=== PATIENT | female | born 1980 | race Caucasian/White ===

== ENCOUNTER 2018-12-01 07:41 | Emergency (ER) | payer BC, OTHER ==
--- OUTSIDE RECORDS SUMMARY | 2018-12-01 07:54 | XMS REPORT ---
:1980 Author Organization [facility] Address [address] [place] [address] Dr. Mendez [address] [place] [id number] Care Team Providers Name Role Phone Unavailable Unavailable Unavailable Problems This patient has no known problems. Allergies, Adverse Reactions, Alerts This patient has no known allergies or adverse reactions. Medications This patient has no known medications.
[2018-12-01] MEDS ORDERED: HYDROCODONE/APAP 10/325 TAB ONE (08:09)
--- NOTE | 2018-12-01 09:30 | RAD REPORT ---
EXAM DESCRIPTION: RAD - Wrist Right 3 View - 12/01/2018 8:31 am CLINICAL HISTORY: Slip and fall, wrist pain, decreased range of motion COMPARISON: None. FINDINGS: No fracture is identified. There is no dislocation or periosteal reaction noted. Epiphyses and growth plates are Normal in appearance. No foreign body or other soft tissue abnormality. IMPRESSION: Negative right wrist examination. Repeat imaging in 7 days could be performed if the pat ient has continued symptoms suspicious for fracture.
[2018-12-01] MEDS ORDERED: ONDANSETRON 4 MG (ODT) TAB ONE (09:35)
[2018-12-01] MEDS ORDERED: MORPHINE 4 MG/ML SYR ONE (09:35)
--- NOTE | 2018-12-01 09:37 | EDPHYS ---
Physician Documentation [facility] Name: Marcie Shell Age: 38 yrs Sex: Female : 1980 Arrival Date: 12/01/2018 Time: 07:45 Bed 20 Private MD: Bryon Childs ED Physician Geronimo Carver HPI: 12/01 08:13 This 38 yrs old Female presents to ER via Ambulatory with complaints of Fall kdr Injury, Wrist Injury. 08:13 The patient or guardian reports decreased range of motion, injury, pain. The complaints kdr affect the right wrist diffusely. Context: The problem was sustained at home, resulted from a fall, while walking, tripped over her dog and landed on outstretched right hand. Onset: The symptoms/episode began/occurred acutely, just prior to arrival. Modifying factors: The symptoms are alleviated by holding still, the symptoms are aggravated by movement. Associated signs and symptoms: The patient has no apparent associated signs or symptoms. The patient has not experienced similar symptoms in the past. The patient has not recently seen a physician. Historical: - Allergies: 07:53 No Known Allergies; em - PMHx: 07:53 None; em - PSHx: 07:53 Appendectomy; em - Immunization history:: Adult Immunizations up to date. - Social history:: Smoking status: Patient/guardian denies using tobacco. - Ebola Screening: : Patient negative for fever greater than or equal to 101.5 degrees Fahrenheit, and additional compatible Ebola Virus Disease symptoms Patient denies exposure to infectious person Patient denies travel to an Ebola-affected area in the 21 days before illness onset No symptoms or risks identified at this time. ROS: 08:13 Constitutional: Negative for fever, chills, and weight loss, Eyes: Negative for injury, kdr pain, redness, and discharge, ENT: Negative for injury, pain, and discharge, Neck: Negative for injury, pain, and swelling, Cardiovascular: Negative for chest pain, palpitations, and edema, Respiratory: Negative for shortness of breath, cough, wheezing, and pleuritic chest pain, Abdomen/GI: Negative for abdominal pain, nausea, vomiting, diarrhea, and constipation. 08:13 MS/extremity: Positive for injury or acute deformity, decreased range of motion, pain, tenderness, of the right wrist. Exam: 08:13 Hand exam: is negative for swelling, Exam is positive for decreased range of motion, kdr injury, pain, tenderness. 08:13 Constitutional: This is a well developed, well nourished patient who is awake, alert, and in no acute distress. Head/Face: Normocephalic, atraumatic. Vital Signs: 07:53 BP 136 / 80; Pulse 107; Resp 22; Pulse Ox 100% on R/A; Weight 77.56 kg; Height 5 ft. 3 em in. (160.02 cm); Pain 10/10; 09:25 BP 115 / 69; Pulse 81; Resp 18; Pulse Ox 97% on R/A; Pain 7/10; em 07:53 Body Mass Index 30.29 (77.56 kg, 160.02 cm) em MDM: 09:36 Patient medically screened. kdr 09:39 Data reviewed: vital signs, nurses notes, radiologic studies. Counseling: I had a kdr detailed discussion with the patient and/or guardian regarding: the historical points, exam findings, and any diagnostic results supporting the discharge/admit diagnosis, radiology results, the need for outpatient follow up. 12 08:06 Order name: Wrist Right 3 View XRAY; Complete Time: 09:33 kdr Administered Medications: 08:07 Drug: [place] 10 mg-325 mg 1 tabs Route: PO; em 08:55 Follow up: Response: No adverse reaction; Pain is decreased em 09:28 Drug: morphine 4 mg Route: IM; Site: left deltoid; em 09:53 Follow up: Response: No adverse reaction em 09:29 Drug: Zofran 4 mg Route: PO; em 09:53 Follow up: Response: No adverse reaction em Disposition: 12 09:36 Discharged to Home. Impression: Other specified sprain of right wrist. - Condition is Stable. - Discharge Instructions: Wrist Splint, Iopw-sp-Eauu, Wrist Pain, Hyep-hb-Ibej, Wrist Sprain. - Prescriptions for Tylenol- Codeine #3 300-30 mg Oral Tablet - take 2 tablets by ORAL route every 6 hours As needed; 15 tablet. - Medication Reconciliation Form, Thank You Letter, Prescription Opioid Use form. - Follow up: Private Physician; When: 2 - 3 days; Reason: If symptoms return, Further diagnostic work-up, Recheck today's complaints, Continuance of care, Re-evaluation by your physician. - Problem is new. - Symptoms have improved. Signatures: Dispatcher [employer] Geronimo Villa MD MD kdr Munoz, Edgar, CERTIFIED ENERGY MANAGER CERTIFIED ENERGY MANAGER em Corrections: (The following items were deleted from the chart) 09:54 09:36 12/01/2018 09:36 Discharged to Home. Impression: Other specified sprain of right em wrist. Condition is Stable. Forms are Medication Reconciliation Form, Thank You Letter, Antibiotic Education, Prescription Opioid Use. Follow up: Private Physician; When: 2 - 3 days; Reason: If symptoms return, Further diagnostic work-up, Recheck today's complaints, Continuance of care, Re-evaluation by your physician. Problem is new. Symptoms have improved. kdr
--- NOTE | 2018-12-01 09:37 | ER ---
Nurse's Notes [facility] Name: Marcie Shell Age: 38 yrs Sex: Female : 1980 Arrival Date: 12/01/2018 Time: 07:45 Bed 20 Private MD: Bryon Childs Diagnosis: Other specified sprain of right wrist Presentation: 12/01 07:51 Presenting complaint: Patient states: tripped on dog this morning about 45 min. ago, em landed one right hand, complains of pain in right wrist, no swelling or deformity noted, limited ROM on right wrist. Transition of care: patient was not received from another setting of care. Onset of symptoms was December 01, 2018. Risk Assessment: Do you want to hurt yourself or someone else? Patient reports no desire to harm self or others. Initial Sepsis Screen: Does the patient meet any 2 criteria? HR > 90 bpm. No. Patient's initial sepsis screen is negative. Does the patient have a suspected source of infection? No. Patient's initial sepsis screen is negative. Care prior to arrival: None. 07:51 Method Of Arrival: Ambulatory em 07:57 Acuity: CELY 4 iw Triage Assessment: 07:53 General: Appears in no apparent distress. uncomfortable, Behavior is calm, cooperative. em Pain: Complains of pain in dorsal aspect of right wrist. Historical: - Allergies: 07:53 No Known Allergies; em - PMHx: 07:53 None; em - PSHx: 07:53 Appendectomy; em - Immunization history:: Adult Immunizations up to date. - Social history:: Smoking status: Patient/guardian denies using tobacco. - Ebola Screening: : Patient negative for fever greater than or equal to 101.5 degrees Fahrenheit, and additional compatible Ebola Virus Disease symptoms Patient denies exposure to infectious person Patient denies travel to an Ebola-affected area in the 21 days before illness onset No symptoms or risks identified at this time. Screenin:55 Abuse screen: Denies threats or abuse. Nutritional screening: No deficits noted. em Tuberculosis screening: No symptoms or risk factors identified. Fall Risk None identified. Assessment: 07:55 General: Appears in no apparent distress. uncomfortable, Behavior is calm, cooperative. em Pain: Complains of pain in dorsal aspect of right wrist Pain currently is 10 out of 10 on a pain scale. Pain began 1 hour ago. Neuro: Level of Consciousness is awake, alert, obeys commands, Oriented to person, place, time, situation. Cardiovascular: Capillary refill < 3 seconds Patient's skin is warm and dry. Respiratory: Airway is patent Respiratory effort is even, unlabored, Respiratory pattern is regular, symmetrical. Derm: Skin is intact, is healthy with good turgor, Skin is pink, warm \T\ dry. Musculoskeletal: Circulation, motion, and sensation intact. Capillary refill < 3 seconds, Range of motion: limited in right wrist Swelling absent Tenderness present in dorsal aspect of left wrist and palmar aspect of left wrist Denies numbness in, right hand. 08:15 Reassessment: Patient appears in no apparent distress at this time. I agree with above iw assessment by Arnulfo Guy LVN. 08:55 Reassessment: Patient appears in no apparent distress at this time. Patient and/or em family updated on plan of care and expected duration. Pain level reassessed. Patient is alert, oriented x 3, equal unlabored respirations, skin warm/dry/pink. rates pain 7/10, pending x-ray results. 09:25 Reassessment: Patient appears in no apparent distress at this time. reports pain is em 7/10, pt crying and appears uncomfortable, provider notified, new medication orders received. Vital Signs: 07:53 BP 136 / 80; Pulse 107; Resp 22; Pulse Ox 100% on R/A; Weight 77.56 kg; Height 5 ft. 3 em in. (160.02 cm); Pain 10/10; 09:25 BP 115 / 69; Pulse 81; Resp 18; Pulse Ox 97% on R/A; Pain 7/10; em 07:53 Body Mass Index 30.29 (77.56 kg, 160.02 cm) em ED Course: 07:45 Patient arrived in ED. mr 07:45 Bryon Childs MD is Private Physician. mr 07:46 Arnulfo Guy LVN is Primary Nurse. em 07:49 Geronimo Carver MD is Attending Physician. kdr 07:53 Arm band placed on. em 07:55 Patient has correct armband on for positive identification. Bed in low position. Call em light in reach. 07:55 Patient maintains SpO2 saturation greater than 95% on room air. Thermoregulation: warm em blanket given to patient. 07:57 Triage completed. iw 08:29 Wrist Right 3 View XRAY In Process Unspecified. EDMS 08:29 X-ray completed. Portable x-ray completed in exam room. jr1 09:53 No provider procedures requiring assistance completed. Patient did not have IV access em during this emergency room visit. Administered Medications: 08:07 Drug: [place] 10 mg-325 mg 1 tabs Route: PO; em 08:55 Follow up: Response: No adverse reaction; Pain is decreased em 09:28 Drug: morphine 4 mg Route: IM; Site: left deltoid; em 09:53 Follow up: Response: No adverse reaction em 09:29 Drug: Zofran 4 mg Route: PO; em 09:53 Follow up: Response: No adverse reaction em Outcome: 09:36 Discharge ordered by . kdr 09:53 Discharged to home ambulatory, with family. em 09:53 Condition: good 09:53 Discharge instructions given to patient, family, Instructed on discharge instructions, follow up and referral plans. no drinking with medication, no driving heavy equipment, medication usage, Demonstrated understanding of instructions, follow-up care, medications, Prescriptions given X 1. 09:54 Patient left the ED. em Signatures: Dispatcher [employer] EDMS Geronimo Carver MD MD kdr RiveraShanda mr Ventura, Marcie jr1 Arnulfo Guy, CAR ICER CAR ICER em Lisa Coffey, RN RN iw
== END 2018-12-01 09:54 | disposition home or self-care (01) ==
LOC: ER 07:41
DX: S63.591A Other specified sprain of right wrist, initial encounter (principal); W18.09XA Striking against other object with subsequent fall, initial encounter; Y93.01 Activity, walking, marching and hiking; Y92.009 Unspecified place in unspecified non-institutional (private) residence as the place of occurrence of the external cause
CPT/HCPCS: 96372; 99284

== ENCOUNTER 2021-01-04 14:05 | Observation (INO) | payer OTHER ==
--- OUTSIDE RECORDS SUMMARY | 2021-01-04 14:08 | XMS REPORT | Continuity of Care Document ---
:1980 Author Organization [facility] t Address [address] [place] [address] Care Team Providers Name Role Phone Tiburcio Childs MD Primary Care Physician Tiburcio Childs MD Attending Clinician Problems Condition Condition Condition Status Onset Resolution Last Treating Co mments Source Name Details Category Date Date Treatment Clinician Date Attention Attention Disease Active Uni vers deficit deficit 08-28 ity of disorder disorder 00:00: [place] [facility] adult of adult 00 Medica l Branch Osteopenia Osteopenia Disease Active U nivers 08-28 ity of 00:00: [place] [facility] Allergies, Adverse Reactions, Alerts Allergy Allergy Status Severity Reaction(s) Onset Inactive Treating Comm ents Source Name Type Date Date Clinician Sumatrip Propensi Active Unknown - Uni vers delcid ty to See comments 08-28 ity of Succinat adverse 00:00: [place] e reaction Medical s [facility] Social History Social Habit Start Date Stop Date Quantity Comments Source Tobacco use and 2020-05-19 2020-05-19 Never used Universit y of exposure 00:00:00 00:00:00 [facility] Alcohol intake 2020-05-19 2020-05-19 Current University 00:00:00 00:00:00 non-drinker of [facility] alcohol Branch (finding) Sex Ass[birth year] At [birth year] Universit y of 00:00:00 00:00:00 [facility] Smoking Status Start Date Stop Date Source Never smoker [facility] [place] [facility] [facility] Medications Ordered Filled Start Stop Current Ordering Indication Dosage Frequency Signature Comments Components Source Medication Medication Date Date Medication? Clinician (SIG) Name Name amphetamine Yes Attention 20mg Take 1 Univers -dextroamph 4-06 deficit capsule by ity of etamine 00:00[place] disorder [place] (ADDERALL 00 adult every Medical XR) 20 mg morning. Branch 24 hr capsule amphetamine Yes Attention 20mg Take 1 Univers -dextroamph 4-06 deficit capsule by ity of etamine 00:00: disorder of mouth [place] (ADDERALL 00 adult every Medical XR) 20 mg morning. Branch 24 hr capsule albuterol Yes Bronchospas 2{puff} Inhale 2 Univers 90 8-06 m Puffs ity of mcg/actuati 00:00: every 6 Mat[place] as on inhaler 00 (six) Medical hours as Branch needed for Wheezing or Shortness of Breath. albuterol Yes Bronchosp[place] 2{puff} Inhale 2 Univers 90 8-06 m Puffs ity of mcg/actuati 00:00: every 6 [place] as on inhaler 00 (six) Medical hours as Branch needed for Wheezing or Shortness of Breath. Procedures This patient has no known procedures. Plan of Care Planned Activity Planned Date Details Comments Source Future Scheduled 2021-10-24 Depression University of Test 00:00:00 screening [place] [facility] (procedure) [code Branch = [id number]] Future Scheduled 2021-10-24 Depression University of Test 00:00:00 screening [facility] (procedure) [code Branch = [id number]] Future Scheduled 2021-04-22 INFLUENZA VACCINE Univer sity of Test 00:00:00 (Season Ended) [facility] [code = INFLUENZA Branch VACCINE (Season Ended)] Future Scheduled 2021-04-22 INFLUENZA VACCINE Univer sity of Test 00:00:00 (Season Ended) [facility] [code = INFLUENZA Branch VACCINE (Season Ended)] Diagnostic Test 2020-12-26 DEXA AXIAL (HIP Expected: Universit y of Pending 00:00:00 AND SPINE) [code = 12/26/2020, [place] [facility] 429] Expires: Branch 12/26/2021 Diagnostic Test 2020-12-26 DEXA AXIAL (HIP Expected: Universit y of Pending 00:00:00 AND SPINE) [code = 12/26/2020, [place] [facility] 429] Expires: Branch 12/26/2021 Future Scheduled 2002 Screening for University of Test 00:00:00 malignant neoplasm [place] [facility] of cervix Branch (procedure) [code = [id number]] Future Scheduled 2002 Screening for University of Test 00:00:00 malignant neoplasm [place] [facility] of cervix Branch (procedure) [code = [id number]] Future Scheduled 2000-02-26 DTaP,Tdap,and Td Univers ity of Test 00:00:00 Vaccines (1 - [place] [facility] Tdap) [code = Branch DTaP,Tdap,and Td Vaccines (1 - Tdap)] Future Scheduled 2000-02-26 DTaP,Tdap,and Td Univers ity of Test 00:00:00 Vaccines (1 - [place] [facility] Tdap) [code = Branch DTaP,Tdap,and Td Vaccines (1 - Tdap)] Future Scheduled 1999 Hepatitis C University of Test 00:00:00 screening [facility] (procedure) [code Branch = [id number]] Future Scheduled 1999 Hepatitis C University of Test 00:00:00 screening [facility] (procedure) [code Branch = [id number]] Future Scheduled 1997 SARS-CoV-2 University of Test 00:00:00 (COVID-19) Vaccine [place] [facility] (1) [code = Branch SARS-CoV-2 (COVID-19) Vaccine (1)] Future Scheduled 1997 SARS-CoV-2 University of Test 00:00:00 (COVID-19) Vaccine [place] [facility] (1) [code = Branch SARS-CoV-2 (COVID-19) Vaccine (1)] Future Scheduled 1982 VARICELLA VACCINES Unive rsity of Test 00:00:00 (1 of 2 - 2-dose [place] [facility] childhood series) Branch [code = VARICELLA VACCINES (1 of 2 - 2-dose childhood series)] Future Scheduled 1982 VARICELLA VACCINES Unive rsity of Test 00:00:00 (1 of 2 - 2-dose [place] [facility] childhood series) Branch [code = VARICELLA VACCINES (1 of 2 - 2-dose childhood series)] Encounters Start End Encounter Admission Attending Care Care Encounter Source Date/Time Date/Time Type Type Clinicians Facility Department ID 2021-01-01 2021-01-01 Telephone [facility] [id number] 00:00:00 00:00:00 [facility] [id number] Edward Dewey [id number] Professio [phone] nal [address] 2020-12-29 2020-12-29 Refill [facility] [id number] 00:00:00 00:00:00 [facility] [id number] Edward Dewey [id number] Professio [phone] nal [phone] 2020-12-25 2020-12-25 [facility] [id number] 00:00:00 00:00:00 [facility] [id number] Edward Dewey [id number] Professio [phone] nal [address] Results This patient has no known results.
[2021-01-04] MEDS ORDERED: NA CHLORIDE 0.9% 1,000 ML ONE (14:35)
[2021-01-04] MEDS ORDERED: METOPROLOL TARTRATE 5 MG/5 ML INJ IV ONE (14:37)
[2021-01-04] MEDS ORDERED: METOPROLOL TAR 50 MG TAB ONE (14:44)
[2021-01-04 14:48] LABS: Absolute Lymphocytes (CBC) 6.5 K/uL (0.7-4.9); Basophils % 1.3 % (0-1.3); Hematocrit 43.8 % (36.0-45.0); Lymphocytes % 49.9 % (15.3-44.8); MPV 7.3 fL (7.6-11.3); RBC Red Blood Cell Count 4.92 M/uL (3.86-4.86)
[2021-01-04 14:55] LABS: Protime INR 0.99
[2021-01-04 15:04] LABS: ALT/SGPT 26 U/L (12-78); AST/SGOT 18 U/L (15-37); Albumin 3.8 g/dL (3.4-5.0); Alkaline Phosphatase 75 U/L (45-117); BUN Blood Urea Nitrogen 16 mg/dL (7-18); Bicarbonate 21 mmol/L (21-32); Bilirubin Direct 0.1 mg/dL (0-0.2); Bilirubin Total 0.4 mg/dL (0.2-1.0); Glucose Level 91 mg/dL (74-106); Magnesium 1.9 mg/dL (1.8-2.4); NT PRO-BNP 33 pg/mL (<125); Potassium 3.7 mmol/L (3.5-5.1); Sodium Level 141 mmol/L (136-145); Troponin (Emerg Dept Use Only) 0.02 ng/mL (0.0-0.045)
[2021-01-04 15:15] LABS: Urine Blood 3+ (Negative); Urine Glucose Negative (Negative); Urine Protein Negative (Negative); Urine pH 6.5 (5.0-7.0)
[2021-01-04 15:25] LABS: Barbiturates NEGATIVE (NEGATIVE); Benzodiazepines NEGATIVE (NEGATIVE); Cocaine NEGATIVE (NEGATIVE); METHAMPHETAM NEGATIVE (NEGATIVE); Methadone NEGATIVE (NEGATIVE); Opiates NEGATIVE (NEGATIVE); Phencyclidine NEGATIVE (NEGATIVE); THC Cannibis NEGATIVE (NEGATIVE)
--- NOTE | 2021-01-04 15:44 | RAD REPORT ---
EXAM DESCRIPTION: RAD - Chest Single View - 01/04/2021 2:43 pm CLINICAL HISTORY: CHEST PAIN COMPARISON: Portable February 2010 TECHNIQUE: AP portable chest image was obtained 01/04/2021 2:43 pm . FINDINGS: Lungs are clear. Resuscitation paddle overlies the upper right chest. Heart and vasculatur e are normal. No measurable pleural effusion and no pneumothorax. No acute bone finding. Prominent sc oliotic change noted in the thoracic spine. No acute aortic findings suspected. IMPRESSION: No acute cardiopulmonary process. No significant change from comparison study.
--- NOTE | 2021-01-04 16:18 | ER ---
Nurse's Notes [facility] Name: Marcie Shell Age: 40 yrs Sex: Female : 1980 Arrival Date: 01/04/2021 Time: 14:05 Bed 20 Private MD: Bryon Childs Diagnosis: Tachycardia, unspecified;Chest pain, unspecified Presentation: 01/04 14:15 Chief complaint: Spouse and/or significant other states: Chest pain started 15 - 20 ca1 minutes HEAD OF MARKETING with SOB and lightheartedness. No HX of cardiac problems. Coronavirus screen: Client denies travel out of the [place] in the last 14 days. shortness of breath, Client presents with at least one sign or symptom that may indicate coronavirus-19. Standard/surgical mask placed on the client. Provider contacted for isolation considerations. Ebola Screen: Patient negative for fever greater than or equal to 101.5 degrees Fahrenheit, and additional compatible Ebola Virus Disease symptoms Patient denies exposure to infectious person. Patient denies travel to an Ebola-affected area in the 21 days before illness onset. No symptoms or risks identified at this time. Initial Sepsis Screen: Does the patient meet any 2 criteria? RR > 20 per min. HR > 90 bpm. Does the patient have a suspected source of infection? No. Patient's initial sepsis screen is negative. Risk Assessment: Do you want to hurt yourself or someone else? Patient reports no desire to harm self or others. Onset of symptoms was January 04, 2021. 14:15 Acuity: CELY 2 ca1 14:15 Method Of Arrival: Wheelchair ca1 Triage Assessment: 14:17 General: Appears distressed, Behavior is anxious, listless, restless. Pain: Complains kg of pain in chest Pain radiates to chest Pain currently is 7 out of 10 on a pain scale. at worst was 9 out of 10 on a pain scale. level that patient reports is acceptable is 4 out of 10 on a pain scale. Quality of pain is described as crushing, sharp, stabbing. 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 - Social history:: Smoking status: Patient denies any tobacco usage or history of. Screenin:44 Abuse screen: Denies threats or abuse. Denies injuries from another. Nutritional kg screening: No deficits noted. Tuberculosis screening: No symptoms or risk factors identified. Fall Risk None identified. No fall in past 12 months (0 pts). No secondary diagnosis (0 pts). IV access (20 points). Ambulatory Aid- None/Bed Rest/Nurse Assist (0 pts). Gait- Impaired (20 pts.). Mental Status- Oriented to own ability (0 pts). Total Reddy Fall Scale indicates No Risk (0-24 pts). Assessment: 14:40 General: Appears in no apparent distress. Behavior is calm, cooperative, appropriate kg for age, quiet. 15:00 Pain: Complains of pain in chest Pain does not radiate. Pain currently is 3 out of 10 kg on a pain scale. at worst was 9 out of 10 on a pain scale. level that patient reports is acceptable is 6 out of 10 on a pain scale. Pain began 1 hour ago. Neuro: No deficits noted. Level of Consciousness is awake, alert, obeys commands, Oriented to person, place, time, situation. Cardiovascular: Reports chest pain, lightheadedness, palpitations, shortness of breath, Heart tones S1 S2 Capillary refill < 3 seconds Pulses are all present. Rhythm is regular. Respiratory: No deficits noted. GI: No deficits noted. : No signs and/or symptoms were reported regarding the genitourinary system. EENT: No deficits noted. Derm: No deficits noted. 17:05 Musculoskeletal: No deficits noted. kg 20:00 General: Appears in no apparent distress. comfortable, Behavior is calm, cooperative, rr5 appropriate for age. Neuro: Level of Consciousness is awake, alert, obeys commands, Oriented to person, place, time. Cardiovascular: Capillary refill < 3 seconds Patient's skin is warm and dry. Respiratory: Airway is patent Respiratory effort is even, unlabored, Respiratory pattern is regular, symmetrical. Derm: Skin temperature is warm. Musculoskeletal: Capillary refill < 3 seconds. 20:01 Reassessment: complaints of chest pain, hospitalist informed with order made and rr5 carried out. 21:03 Reassessment: Patient appears in no apparent distress at this time. Patient is alert, rr5 oriented x 3, equal unlabored respirations, skin warm/dry/pink. Patient states feeling better. Patient states symptoms have improved. Vital Signs: 14:15 BP 136 / 96; Pulse 248; Resp 24; Temp 97.6(O); Pulse Ox 100% on R/A; ca1 14:26 BP 124 / 97; Pulse 87; Resp 25; Pulse Ox 100% on 3 lpm NC; kg 14:40 BP 110 / 89; Pulse 96; Resp 18; Pulse Ox 100% on R/A; kg 15:00 BP 120 / 96; Pulse 90; Resp 18; Pulse Ox 100% on R/A; kg 15:30 BP 116 / 92; Pulse 93; Resp 20; Pulse Ox 100% on R/A; kg 16:00 BP 120 / 89; Pulse 90; Resp 20; Pulse Ox 99% on R/A; kg 19:30 BP 126 / 79; Pulse 89; Resp 16; Pulse Ox 100% ; rr5 20:54 BP 121 / 88; Pulse 85; Resp 19; Temp 98; Pulse Ox 98% ; rr5 Vitals: 14:20 Cardiac Rhythm Assessment SVT. kg 14:22 Cardiac Rhythm Assessment Regular Sinus rhythm. kg ED Course: 14:05 Patient arrived in ED. am2 14:06 Bryon Childs MD is Private Physician. am2 14:07 [facility] pm1 14:07 Kimberly Capps MD is Attending Physician. pm1 14:15 Arm band placed on Patient placed in an exam room, on a stretcher, on ekg monitor tech, ca1 on pulse oximetry. EKG completed in triage. Results shown to MD. 14:16 Triage completed. ca1 14:20 Inserted saline lock: 20 gauge in right antecubital area, using aseptic technique. kg 14:23 Inserted saline lock: 18 gauge in left forearm, using aseptic technique. kg 14:25 Oxygen administration via nasal cannula \T\ 3L/min. kg 14:35 Inserted saline lock: 20 gauge in right antecubital area, using aseptic technique. kg 14:39 Rebeca Drake is Primary Nurse. kg 14:41 Basic Metabolic Panel Sent. kg 14:41 CBC with Diff Sent. kg 14:41 LFT's Sent. kg 14:41 Magnesium Sent. kg 14:41 NT PRO-BNP Sent. kg 14:41 PT-INR Sent. kg 14:41 Troponin (emerg Dept Use Only) Sent. kg 14:43 XRAY Chest (1 view) In Process Unspecified. EDMS 16:17 Woody Davis DO is Hospitalizing Provider. pm1 17:05 Patient has correct armband on for positive identification. Fall risk band placed. kg Placed in gown. Bed in low position. Call light in reach. Side rails up X2. Adult w/ patient. manager monitoring on. Pulse ox on. NIBP on. 17:07 TSH Sent. kg 19:17 Report given to Roman TAM. kg 19:18 Primary Nurse role handed off by Rebeca Drake mw2 19:53 Roman Trammell, YONATAN is Primary Nurse. rr5 20:54 No provider procedures requiring assistance completed. Patient admitted, IV remains in rr5 place. intact, No redness/swelling at site. Administered Medications: 14:18 Drug: NS 0.9% 1000 ml Route: IV; Rate: 1000 ml; Site: right antecubital; kg 17:07 Follow up: IV Status: Completed infusion; IV Intake: 1000ml kg 14:20 Drug: Metoprolol 5 mg Route: IVP; Site: right antecubital; kg 17:07 Follow up: Response: No adverse reaction; Marked relief of symptoms kg 14:24 CANCELLED (Physician Discretion): Adenocard (adenosine) 6 mg IVP once pm1 14:26 Drug: Metoprolol TARTRATE 50 mg Route: PO; kg 17:07 Follow up: Response: No adverse reaction; Marked relief of symptoms; Cardiac rhythm kg changed Intake: 17:07 IV: 1000ml; Total: 1000ml. kg Outcome: 16:17 Decision to Hospitalize by Provider. pm1 20:58 Admitted to OR accompanied by tech, via stretcher, room 218, with chart, Report called rr5 to brad 20:58 Condition: stable 20:58 Instructed on the need for admit. 21:17 Patient left the ED. rr5 Signatures: Dispatcher [employer] EDMS Hunter Adames, LANDSCAPE MANAGER LANDSCAPE MANAGER pm1 Tracy Bernal am2 Arlet Jason mw2 Roman Trammell, RN RN rr5 Mary Vides RN RN ca1 Rebeca Drake kg Corrections: (The following items were deleted from the chart) 14:44 14:25 Inserted saline lock: 20 gauge in right antecubital area, using aseptic kg technique. kg
--- NOTE | 2021-01-04 16:18 | EDPHYS ---
Physician Documentation [facility] Name: Marcie Shell Age: 40 yrs Sex: Female : 1980 Arrival Date: 01/04/2021 Time: 14:05 Bed 20 Private MD: Bryon Childs ED Physician Kimberly Capps HPI: 01/04 15:06 This 40 yrs old Female presents to ER via Wheelchair with complaints of Chest pm1 Pain. 15:06 The patient or guardian reports chest pain that is located primarily in the mid-sternal pm1 area. The pain does not radiate. Associated signs and symptoms: Pertinent positives: headache, lightheadedness, palpitations, shortness of breath, Pertinent negatives: abdominal pain, cough, nausea, vomiting. The chest pain is described as a pressure. Duration: The patient or guardian reports a single episode, that is still ongoing. Modifying factors: The symptoms are alleviated by nothing. the symptoms are aggravated by nothing. Severity of pain: in the emergency department the pain is unchanged. 1-2 months ago she experienced palpitations with chest pain for a short duration that resolved with sitting down and calming down. Prior to that was 1 year ago. Today she was not able to have the pain and palpations resolve with relaxation and rest. The patient has been recently seen by a physician: the patient's primary care provider, Dr. Ahn for cough cold congestion. Was diagnosed with bronchitis and prescribed zpak. Patient has one dose left. Patient tested negative for covid at that time. 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 - Social history:: Smoking status: Patient denies any tobacco usage or history of. ROS: 15:06 Constitutional: Negative for fever, chills, and weight loss, Eyes: Negative for injury, pm1 pain, redness, and discharge, ENT: Negative for injury, pain, and discharge, Neck: Negative for injury, pain, and swelling. 15:06 Abdomen/GI: Negative for abdominal pain, nausea, vomiting, diarrhea, and constipation, Back: Negative for injury and pain, MS/Extremity: Negative for injury and deformity, Skin: Negative for injury, rash, and discoloration. 15:06 Cardiovascular: Positive for chest pain, palpitations. 15:06 Respiratory: Positive for shortness of breath, Negative for cough, sputum production, wheezing. 15:06 Neuro: Positive for headache, lightheaded, Negative for numbness, tingling, weakness. Exam: 15:06 Constitutional: This is a well developed, well nourished patient who is awake, alert, pm1 and in no acute distress. Head/Face: Normocephalic, atraumatic. Neck: Trachea midline, no thyromegaly or masses palpated, and no cervical lymphadenopathy. Supple, full range of motion without nuchal rigidity, or vertebral point tenderness. No Meningismus. Chest/axilla: Normal chest wall appearance and motion. Nontender with no deformity. No lesions are appreciated. 15:06 Eyes: Pupils equal round and reactive to light, extra-ocular motions intact. Lids and lashes normal. Conjunctiva and sclera are non-icteric and not injected. Cornea within normal limits. Periorbital areas with no swelling, redness, or edema. 15:06 Back: No spinal tenderness. No costovertebral tenderness. Full range of motion. Skin: Warm, dry with normal turgor. Normal color with no rashes, no lesions, and no evidence of cellulitis. MS/ Extremity: Pulses equal, no cyanosis. Neurovascular intact. Full, normal range of motion. 15:06 ENT: Mouth: is normal, Lips: normal, Oral mucosa: normal, pink and intact, moist. 15:06 Cardiovascular: Rate: tachycardic, Rhythm: regular, Pulses: no pulse deficits are appreciated, Edema: pedal edema. 15:06 Respiratory: the patient does not display signs of respiratory distress, Breath sounds: are clear throughout. 15:06 Abdomen/GI: Inspection: obese Palpation: abdomen is soft and non-tender, in all quadrants. 15:06 Neuro: Exam negative for acute changes, Orientation: is normal, Mentation: is normal, Motor: is normal, moves all fours. Vital Signs: 14:15 BP 136 / 96; Pulse 248; Resp 24; Temp 97.6(O); Pulse Ox 100% on R/A; ca1 14:26 BP 124 / 97; Pulse 87; Resp 25; Pulse Ox 100% on 3 lpm NC; kg 14:40 BP 110 / 89; Pulse 96; Resp 18; Pulse Ox 100% on R/A; kg 15:00 BP 120 / 96; Pulse 90; Resp 18; Pulse Ox 100% on R/A; kg 15:30 BP 116 / 92; Pulse 93; Resp 20; Pulse Ox 100% on R/A; kg 16:00 BP 120 / 89; Pulse 90; Resp 20; Pulse Ox 99% on R/A; kg 19:30 BP 126 / 79; Pulse 89; Resp 16; Pulse Ox 100% ; rr5 20:54 BP 121 / 88; Pulse 85; Resp 19; Temp 98; Pulse Ox 98% ; rr5 MDM: 14:07 Patient medically screened. pm1 15:50 Counseling: I had a detailed discussion with the patient and/or guardian regarding: the pm1 historical points, exam findings, and any diagnostic results supporting the discharge/admit diagnosis, lab results, radiology results, the need for further work-up and treatment in the hospital. 16:14 Data reviewed: vital signs. Data interpreted: Pulse oximetry: on room air is 100 %. pm1 Interpretation: normal. 16:14 Physician consultation: Lalita Diaz NP was called at 16:14, was contacted at 16:14, pm1 regarding admission, patient's condition. 01/04 14:18 Order name: Basic Metabolic Panel; Complete Time: 15:37 pm1 01/04 14:18 Order name: CBC with Diff; Complete Time: 14:58 pm1 01/04 14:18 Order name: LFT's; Complete Time: 15:37 pm1 01/04 14:18 Order name: Magnesium; Complete Time: 15:37 pm1 01/04 14:18 Order name: NT PRO-BNP; Complete Time: 15:37 pm1 01/04 14:18 Order name: PT-INR; Complete Time: 15:37 pm1 01/04 14:18 Order name: Troponin (emerg Dept Use Only); Complete Time: 15:37 pm1 01/04 14:25 Order name: Urine Drug Screen; Complete Time: 15:37 pm1 01/04 15:14 Order name: Urine Dipstick-Ancillary; Complete Time: 15:37 EDMS 01/04 15:15 Order name: Urine --Ancillary (enter results) em1 01/04 15:50 Order name: TSH pm1 01/04 15:50 Order name: Thyroid Stimulating Hormone; Complete Time: 16:30 EDMS 01/04 17:02 Order name: SARS-COV-2 RT PCR; Complete Time: 17:17 EDMS 01/04 14:18 Order name: XRAY Chest (1 view); Complete Time: 15:50 pm1 01/04 14:18 Order name: EKG; Complete Time: 14:19 pm1 01/04 14:18 Order name: Cardiac monitoring; Complete Time: 14:41 pm1 01/04 14:18 Order name: EKG - Nurse/Tech; Complete Time: 14:41 pm1 01/04 14:18 Order name: IV Saline Lock; Complete Time: 14:41 pm1 01/04 14:18 Order name: Labs collected and sent; Complete Time: 14:41 pm1 01/04 14:18 Order name: O2 Per Protocol; Complete Time: 16:41 pm1 01/04 14:18 Order name: O2 Sat Monitoring; Complete Time: 16:41 pm1 01/04 14:25 Order name: Urine Dipstick-Ancillary (obtain specimen); Complete Time: 15:14 pm1 01/04 14:25 Order name: Urine Test (obtain specimen); Complete Time: 15:14 pm1 Administered Medications: 14:18 Drug: NS 0.9% 1000 ml Route: IV; Rate: 1000 ml; Site: right antecubital; kg 17:07 Follow up: IV Status: Completed infusion; IV Intake: 1000ml kg 14:20 Drug: Metoprolol 5 mg Route: IVP; Site: right antecubital; kg 17:07 Follow up: Response: No adverse reaction; Marked relief of symptoms kg 14:24 CANCELLED (Physician Discretion): Adenocard (adenosine) 6 mg IVP once pm1 14:26 Drug: Metoprolol TARTRATE 50 mg Route: PO; kg 17:07 Follow up: Response: No adverse reaction; Marked relief of symptoms; Cardiac rhythm kg changed Disposition: 01/05 18:37 Co-signature as Attending Physician, Kimberly Capps MD. ma2 Disposition: 01/04/21 16:17 Hospitalization ordered by Woody Davis for Observation. Preliminary diagnosis are Tachycardia, unspecified, Chest pain, unspecified. - Bed requested for Telemetry/MedSurg (observation). - Status is Observation. rr5 - Condition is Stable. - Problem is new. - Symptoms have improved. Signatures: Dispatcher [employer] EDMS Samantha Haywood RN RN aa5 Tosin Mario RN RN cg Hunter Adames, SENIOR DATABASE ADMINISTRATOR SENIOR DATABASE ADMINISTRATOR pm1 Kimberly Capps MD MD ma2 Roman Trammell RN RN rr5 Mary Vides RN RN ca1 Rebeca Drake kg Corrections: (The following items were deleted from the chart) 01/04 14:24 14:18 Adenocard (adenosine) 6 mg IVP once ordered. pm1 pm1 16:01 14:37 CORONAVIRUS+MR.LAB.BRZ ordered. EDKS EDMS 16:20 16:17 Hospitalization Ordered by Woody Davis DO for Observation. Preliminary aa5 diagnosis is Tachycardia, unspecified; Chest pain, unspecified. Bed requested for Telemetry/MedSurg (observation). Status is Observation. Condition is Stable. Problem is new. Symptoms have improved. pm1 20:26 16:20 01/04/2021 16:17 Hospitalization Ordered by Woody Davis DO for Observation. cg Preliminary diagnosis is Tachycardia, unspecified; Chest pain, unspecified. Bed requested for [facility] ER HOLD. Status is Observation. Condition is Stable. Problem is new. Symptoms have improved. aa5 21:17 20:26 01/04/2021 16:17 Hospitalization Ordered by Woody Davis DO for Observation. rr5 Preliminary diagnosis is Tachycardia, unspecified; Chest pain, unspecified. Bed requested for Telemetry/MedSurg (observation). Status is Observation. Condition is Stable. Problem is new. Symptoms have improved.
[2021-01-04] MEDS ORDERED: ONDANSETRON 4 MG/2 ML VIAL ONE (18:51)
[2021-01-04] MEDS ORDERED: ONDANSETRON 4 MG/2 ML VIAL IV PRN (19:41)
[2021-01-04] MEDS: MORPHINE 2 MG/ML SYR IV PRN (20:00)
[2021-01-04] MEDS ORDERED: MORPHINE 2 MG/ML SYR ONE (20:15)
[2021-01-04] MEDS ORDERED: NA CHLORIDE 0.9% 3,000 ML ONE (20:33)
--- NOTE | 2021-01-04 21:15 | P.HP ---
Certification for Inpatient Patient admitted to: Observation With expected LOS: <2 Midnights Patient will require the following post-hospital care: None Practitioner: I am a practitioner with admitting privileges, knowledge of patient current condition, hospital course, and medical plan of care. Services: Services provided to patient in accordance with Admission requirements found in Title 42 Section 412.3 of the Code of Federal Regulations Patient History Date of Service: 01/04/21 Primary Care Provider: Dr. Baker Reason for admission: SVT History of Present Illness: Otherwise healthy 40-year-old female presents emergency department for palpitations, chest pain. While in the emergency department patient is noted to be tachycardic with a rate around 248 appears to be SVT. Patient was treated with metoprolol 5 mg IV converted to normal sinus rhythm, did additionally given p.o. metoprolol. Labs emergency department significant for white blood cell count 13.1 chest x-ray unremarkable, EKG now a sinus rhythm, patient reports 1 previous episode approximately a year ago that she was able to get out of hers elf with a vagal maneuver. Patient denies ever seeing Cardiology in the past, ED provider wishes to admit under observation. Allergies No Known Allergies Allergy (Unverified 12/27/16 09:04) Home Medications: Ciprofloxacin HCl [Cipro 500 MG Tablet] 500 mg PO BID #12 tab 12/27/16 Hydrocodone/Acetaminophen [Vicodin 5-325 mg Tablet] 1 each PO Q4H PRN #30 tablet 12/27/16 Lisdexamfetamine Dimesylate [Vyvanse] 1 cap PO DAILY 12/27/16 - Past Medical/Surgical History -: Osteopenia -: none Psychosocial/ Personal History: Patient lives at home with family - Family History Father -: Heart disease - Social History Smoking Status: Never smoker Alcohol use: No CD- Drugs: No Caffeine use: Yes Place of Residence: Home Review of Systems 10-point ROS is otherwise unremarkable Cardiovascular: Chest Pain, Palpitations Physical Examination - Vital Signs Respirations: 19 Pulse Ox (%): 99 - Physical Exam General: Alert, In no apparent distress HEENT: Atraumatic, PERRLA, Mucous membr. moist/pink, EOMI, Sclerae nonicteric Neck: Supple, 2+ carotid pulse no bruit, No LAD, Without JVD or thyroid abnormality Respiratory: Clear to auscultation bilaterally, Normal air movement Cardiovascular: Regular rate/rhythm, Normal S1 S2 Gastrointestinal: Normal bowel sounds, No tenderness Musculoskeletal: No tenderness Integumentary: No rashes Neurological: Normal gait, Normal speech, Normal strength at 5/5 x4 extr, Normal tone, Normal affect Lymphatics: No axilla or inguinal lymphadenopathy - Studies Laboratory Data (last 24 hrs) 01/04/21 14:34: PT 11.4, INR 0.99 01/04/21 14:34: WBC 13.10 H, Hgb 14.3, Hct 43.8, Plt Count 436 H 01/04/21 14:34: Sodium 141, Potassium 3.7, BUN 16, Creatinine 0.69, Glucose 91, Magnesium 1.9, Total Bilirubin 0.4, AST 18, ALT 26, Alkaline Phosphatase 75 Assessment and Plan - Plan Assessment SVT- now resolved, chest pain Plan SVT- now resolved, chest pain: Patient still experiencing some chest pain, trend troponins, will monitor on telemetry. Continue with addition of beta- cezar therapy, daily aspirin. Cardiology consulted. DVT prophylaxis Lovenox 40 mg subcutaneous once daily. Appreciate further input from cardiology. Discharge Plan: Home Plan to discharge in: 24 Hours - Advance Directives Does patient have a Living Will: No Does patient have a Durable POA for Healthcare: No - Code Status/Comfort Care Code Status Assessed: Yes (Full code) Critical Care: No Time Spent Managing Pts Care (In Minutes): 55
[2021-01-04 21:46] VITALS: BMI 32.1
[2021-01-04] MEDS: NA CHLORIDE 0.9% 1,000 ML IV SCH (23:15)
[2021-01-04] MEDS ORDERED: MELATONIN 5 MG TABLET PO PRN (23:28)
[2021-01-05] MEDS ORDERED: HEPARIN/D5W 25,000 UNIT/500 ML BAG IV SCH (00:11)
[2021-01-05] MEDS ORDERED: HEPARIN 5000 UNIT/ML 1 ML VIAL IV ONE (00:11)
[2021-01-05] MEDS: MORPHINE 2 MG/ML SYR IV PRN (03:45)
[2021-01-05 04:17] VITALS: O2SAT 99
[2021-01-05] MEDS: NA CHLORIDE 0.9% 1,000 ML IV SCH (05:52)
[2021-01-05] MEDS ORDERED: METOPROLOL TAR 25 MG TAB PO SCH ×2 (06:00→19:00)
[2021-01-05 06:24] LABS: Hematocrit 35.7 % (36.0-45.0); Lymphocytes % 61.4 % (15.3-44.8); MPV 7.5 fL (7.6-11.3); RBC Red Blood Cell Count 3.98 M/uL (3.86-4.86)
[2021-01-05 06:49] LABS: ALT/SGPT 20 U/L (12-78); AST/SGOT 19 U/L (15-37); Albumin 2.8 g/dL (3.4-5.0); Alkaline Phosphatase 58 U/L (45-117); BUN Blood Urea Nitrogen 15 mg/dL (7-18); Bicarbonate 23 mmol/L (21-32); Bilirubin Total 0.4 mg/dL (0.2-1.0); Glucose Level 87 mg/dL (74-106); HDL Cholesterol 36 mg/dL (40-60); LDL Cholesterol, Calculated 76 (<130); Potassium 3.6 mmol/L (3.5-5.1); Protein, Total 6.1 g/dL (6.4-8.2); Sodium Level 142 mmol/L (136-145)
[2021-01-05 08:47] LABS: Blood Morphology Comment NOT SEEN (NOT SEEN); Platelet Estimate ADEQ
[2021-01-05] MEDS ORDERED: ASPIRIN EC 81 MG TAB PO SCH (09:00)
[2021-01-05] MEDS ORDERED: ENOXAPARIN 40 MG/0.4 ML SQ SCH (09:00)
[2021-01-05] MEDS ORDERED: KCL 20 MEQ/100 mL IVPB 20 MEQ/100 ML BAG IV SCH (09:00)
[2021-01-05] MEDS ORDERED: POTASSIUM CL SA 10 MEQ TAB PO ONE (10:04)
[2021-01-05] MEDS: ACETAMINOPHEN 500 MG TAB PO PRN ×2 (10:27→15:14)
[2021-01-05 17:40] VITALS: BP 106/69; TEMP 98
--- NOTE | 2021-01-08 12:34 | CON ---
Date of Consultation: 01/05/2021 Reason For Consultation: Admitted on 01/04/2021 with SVT. I saw the patient on 01/05/2021. History Of Present Illness: The patient has SVT and resolved by the time I saw her. She has some ch est pain and shortness of breath with palpitations. She had lightheadedness. No syncope. No nausea , vomiting, or cough. Denied any fever or chills. Has had similar symptoms in the past about a year ago. This . Recently saw Dr. Julien for cough and congestion, was diagnosed with bronchi tis and prescribed Z-Willy. She is COVID negative. Past Medical History: Positive for osteopenia and appendectomy. Allergies: NEGATIVE. Review of Systems: Negative. Social History: Negative. Family History: Negative. Physical Examination: Vital Signs: Stable. She was afebrile. HEENT: Negative. Neck: Supple without any bruit, lymphadenopathy, JVD, or thyromegaly. Chest: Clear to auscultation and percussion. Cardiac: Revealed a regular rhythm and rate without any murmurs, gallops, or rubs. Abdomen: Benign. Extremities: Revealed no clubbing, cyanosis, or edema. Diagnostic Data: Her troponin was slightly elevated at 1.4. Impression: Supraventricular tachycardia causing troponin elevation, coronary syndrome. I think the patient needs to go home on a beta-cezar. I think she needs to have an echocardiogram and outpati ent routine stress test future. If her SVT becomes more problem on beta-cezar, we will set her up for ablation. GERTRUDE/YON Voice ID: [id number] Report ID: [id number]
--- NOTE | 2021-01-12 03:30 | P.DS ---
Discharge Date: 01/05/21 Primary Care Provider: Dr. Baker Disposition: ROUTINE DISCHARGE Discharge Condition: GOOD Reason for Admission: SVT Consultations: Cardiology Brief History of Present Illness: Otherwise healthy 40-year-old female presents emergency department for palpitations, chest pain. While in the emergency department patient is noted to be tachycardic with a rate around 248 appears to be SVT. Patient was treated with metoprolol 5 mg IV converted to normal sinus rhythm, did additionally given p.o. metoprolol. Labs emergency department significant for white blood cell count 13.1 chest x-ray unremarkable, EKG now a sinus rhythm, patient reports 1 previous episode approximately a year ago that she was able to get out of herself with a vagal maneuver. Patient denies ever seeing Cardiology in the past, ED provider wishes to admit under observation. Hospital Course: Patient is clinically doing well. Will continue with low-dose beta-cezar at this time. Outpatient follow-up with Cardiology. Stable the discharge at this time. Refrain from any stimulants going forward. Vital Signs/Physical Exam: Temp Pulse Resp BP Pulse Ox 98.0 F 85 16 106/69 93 01/05/21 16:00 01/05/21 16:00 01/05/21 16:00 01/05/21 16:00 01/05/21 16:00 General: Alert, In no apparent distress, Oriented x3 Laboratory Data at Discharge: WBC 9.80 K/uL (4.3-10.9) D 01/05/21 05:46 Hgb 11.8 g/dL (12.0-15.0) L D 01/05/21 05:46 Hct 35.7 % (36.0-45.0) L D 01/05/21 05:46 Plt Count 327 K/uL (152-406) D 01/05/21 05:46 PT 11.4 SECONDS (9.5-12.5) 01/04/21 14:34 INR 0.99 01/04/21 14:34 APTT 39.8 SECONDS (24.3-36.9) H 01/05/21 10:04 Sodium 142 mmol/L (136-145) 01/05/21 05:46 Potassium 3.6 mmol/L (3.5-5.1) 01/05/21 05:46 BUN 15 mg/dL (7-18) 01/05/21 05:46 Creatinine 0.50 mg/dL (0.55-1.3) L 01/05/21 05:46 Glucose 87 mg/dL (74-106) 01/05/21 05:46 Magnesium 2.0 mg/dL (1.8-2.4) 01/05/21 05:46 Total Bilirubin 0.4 mg/dL (0.2-1.0) 01/05/21 05:46 AST 19 U/L (15-37) 01/05/21 05:46 ALT 20 U/L (12-78) 01/05/21 05:46 Alkaline Phosphatase 58 U/L (45-117) 01/05/21 05:46 Troponin I 0.40 ng/mL (0.0-0.045) H 01/05/21 08:48 Triglycerides 137 mg/dL (<150) 01/05/21 05:46 Cholesterol 139 mg/dL (<200) 01/05/21 05:46 HDL Cholesterol 36 mg/dL (40-60) L 01/05/21 05:46 Cholesterol/HDL Ratio 3.86 01/05/21 05:46 Home Medications: ALPRAZolam [Xanax*] 0.5 mg PO DAILYPRN PRN 01/05/21 Azithromycin Tab [Zithromax*] 250 mg PO ZPAK 01/05/21 Benzonatate 200 mg PO Q8HP 01/05/21 Brompheniramine/Pseudoephed/Dm [Pekoiygw-Xrv-Vz 2-30-10 mg/5Ml] 10 ml PO Q8HP PRN 01/05/21 Dextroamphetamine/Amphetamine [Dextroamp-Amphet ER 20 mg Cap] 20 mg PO DAILY 01/05/21 Hydrocodone 10/APAP 325 [[place] 10/325*] 1 tab PO Q6H PRN 01/05/21 Melatonin 10 mg PO BEDTIME PRN PRN #20 tablet 01/05/21 Metoprolol Tartrate [Lopressor*] 0.5 tab PO BID #30 tab 01/05/21 Naproxen Sodium [Naproxen Sodium Cr] 500 mg PO DAILY PRN 01/05/21 New Medications: Metoprolol Tartrate [Lopressor*] 0.5 tab PO BID #30 tab Melatonin 10 mg PO BEDTIME PRN PRN #20 tablet PRN Reason: Insomnia Physician Discharge Instructions: PROBLEM: Supraventricular Tachycardia, Chest pain GOAL: Clear understanding of disease process E-scripts sent to [facility] in [place]. INSTRUCTIONS: - Ok to discontinue IV and discharge home. - Follow up with your Primary Care Provider in 1-2 weeks. - Follow up with cardiology in 1-2 weeks. - Refrain from drinking any caffeinated beverages. - Return to the ER if your symptoms worsen. - Call or text Dr. Nguyen at if any questions regarding your hospital stay. - Please call the 2nd floor at if you have any medication or nursing questions. Diet: Heart healthy Activity: Fall precautions IMMUNIZATION Influenza Vaccine Indicated: Influenza Vaccine Given: Date Given: Pneumonia Vaccine Indicated: No Pneumonia Vaccine Given: Date Given: Diet: AHA Activity: Fall precautions Followup: David Rodriguez MD [ACTIVE - CAN ADMIT] - 1 Week (Follow up in office in 1 week. Call to schedule an appointment.) Bryon Childs MD [Primary Care Provider] - 1-2 Weeks (Follow up in office in 1- 2 weeks. Call to schedule an appointment. ) Time spent managing pt's care (in minutes): 35
== END 2021-01-05 19:45 | disposition home or self-care (01) ==
LOC: ER 14:05 → INTOOBSV 19:11 → OBSVTOIN 19:11 → ERHOLD 19:11 → 2ND 20:59
PROVIDERS: ADMIT Hospitalist; ATTEND Hospitalist
DX: I47.1 Supraventricular tachycardia (principal); M85.80 Other specified disorders of bone density and structure, unspecified site; Z20.822 Contact with and (suspected) exposure to COVID-19; R94.31 Abnormal electrocardiogram [ECG] [EKG]; R07.9 Chest pain, unspecified
CPT/HCPCS: 36415; 71045; 80048; 80053; 80061; 80076; 80307; 81003; 81025; 83735; 83880; 84439; 84443; 84484; 85025; 85610; 85730; 93005; 96361; 96374; 99285; G0378; J1644; J2270; J2405; J7030; U0003

== ENCOUNTER 2021-01-08 12:47 | Emergency (ER) | payer OTHER ==
--- OUTSIDE RECORDS SUMMARY | 2021-01-08 12:50 | XMS REPORT | Continuity of Care Document ---
:1980 Author Organization [facility] t Address [address] [place] [address] Care Team Providers Name Role Phone Tiburcio [...] U nivers 08-28 ity of 00:00: [place] 00 Medical Branch Allergies, Adverse Reactions, Alerts Allergy Allergy Status Severity Reaction(s) Onset Inactive Treating Comm ents Source Name Type Date Date Clinician Sumatrsobia Propensi Active Unknown - Uni vers delcid ty to See comments 08-28 ity of Succinat adverse 00:00: [place] e reaction Medical s Branch Social History Social Habit Start Date Stop Date Quantity Comments Source Tobacco use and 2020-05-19 2020-05-19 Never used Universit y of exposure 00:00:00 00:00:00 [facility] Alcohol intake 2020-05-19 2020-05-19 Current University 00:00:00 00:00:00 non-drinker of [facility] alcohol Branch (finding) Sex Ass[birth year] At [birth year] Universit y of 00:00:00 00:00:00 [facility] Smoking Status Start Date Stop Date Source [...] 2021-10-24 Depression University of Test 00:00:00 screening [place] [facility] (procedure) [code Branch = [id number]] Future Scheduled 2021-10-24 Depression University of Test 00:00:00 screening [place] [facility] (procedure) [code Branch = [id number]] Future Scheduled 2021-04-22 INFLUENZA VACCINE Univer sity of Test 00:00:00 (Season Ended) [place] [facility] [code = INFLUENZA Branch VACCINE (Season Ended)] Future Scheduled 2021-04-22 INFLUENZA VACCINE Univer sity of Test 00:00:00 (Season Ended) [place] [facility] [code = INFLUENZA Branch VACCINE (Season Ended)] Diagnostic Test 2020-12-26 DEXA AXIAL (HIP Expected: Universit y of Pending 00:00:00 AND SPINE) [code = 12/26/2020, [place] [facility] ical 429] Expires: Branch 12/26/2021 Diagnostic Test 2020-12-26 DEXA AXIAL (HIP Expected: Universit y of Pending 00:00:00 AND SPINE) [code = 12/26/2020, [place] [facility] ical 429] Expires: Branch 12/26/2021 Future Scheduled 2002 Screening for University of Test 00:00:00 malignant neoplasm [place] [facility] ical of cervix Branch (procedure) [code = 094142329] Future Scheduled 2002 Screening for University of Test 00:00:00 malignant neoplasm [place] [facility] ical of cervix Branch (procedure) [code = [id number]] Future Scheduled 2000-02-26 DTaP,Tdap,and Td Univers ity of Test 00:00:00 Vaccines (1 - [place] [facility] Tdap) [code = Branch DTaP,Tdap,and Td Vaccines (1 - Tdap)] Future Scheduled 2000-02-26 DTaP,Tdap,and Td Univers ity of Test 00:00:00 Vaccines (1 - [place] [facility] Tdap) [code = Branch DTaP,Tdap,and Td Vaccines (1 - Tdap)] Future Scheduled 1999 Hepatitis C University of Test 00:00:00 screening [place] [facility] (procedure) [code Branch = [id number]] Future Scheduled 1999 Hepatitis C University of Test 00:00:00 screening [place] [facility] (procedure) [code Branch = [id number]] Future Scheduled 1997 SARS-CoV-2 University of Test [...] Date/Time Type Type Clinicians Facility Department ID 2021-01-06 2021-01-06 [facility] [id number] 13:26:30 23:59:00 Encounter Bryon Tamayo [id number] Edjulio Uriarte [id number] [place] [id number] 2021-01-01 2021-01-01 Telephone [facility] [id number] 00:00:00 00:00:00 Bryon Carpenter [id number] Edjulio Tamayo [id number] Professio [phone] nal [address] 2020-12-29 2020-12-29 Refill [facility] [id number] 00:00:00 00:00:00 Bryon Carpenter [id number] Edjulio Tamayo [id number] Professio [phone] nal [address] 2020-12-25 2020-12-25 [facility] [id number] 00:00:00 00:00:00 Bryon Carpenter [id number] [place] [phone] [facility] [address] Results This patient has no known results.
[2021-01-08] MEDS ORDERED: NA CHLORIDE 0.9% 1,000 ML ONE (13:40)
[2021-01-08] MEDS ORDERED: METOPROLOL TAR 25 MG TAB ONE (13:40)
--- NOTE | 2021-01-08 14:59 | RAD REPORT ---
EXAM DESCRIPTION: RAD - Chest Single View - 01/08/2021 2:23 pm CLINICAL HISTORY: CHEST PAIN COMPARISON: Single-view chest January 04 TECHNIQUE: AP portable chest image was obtained 01/08/2021 2:23 pm . FINDINGS: Lungs are clear. Heart and vasculature are normal. No measurable pleural effusion and no p neumothorax. No acute bony abnormality seen. Scoliosis of the spine again noted. No acute aortic find ings suspected. IMPRESSION: No acute cardiopulmonary process. No significant change from comparison study.
--- NOTE | 2021-01-08 15:18 | ER ---
Nurse's Notes [facility] Name: Marcie Shell Age: 40 yrs Sex: Female : 1980 Arrival Date: 01/08/2021 Time: 12:52 Bed 13 Private MD: Diagnosis: Chest pain, unspecified;Supraventricular tachycardia Presentation: 01/08 12:53 Chief complaint: Patient states: CP and fast HR started today. Was here Tuesday, ll1 diagnosed with SVT. Coronavirus screen: Client denies travel out of the [place] in the last 14 days. At this time, the client does not indicate any symptoms associated with coronavirus-19. Ebola Screen: Patient denies travel to an Ebola-affected area in the 21 days before illness onset. Initial Sepsis Screen: Does the patient meet any 2 criteria? HR > 90 bpm. No. Patient's initial sepsis screen is negative. Does the patient have a suspected source of infection? No. Patient's initial sepsis screen is negative. Risk Assessment: Do you want to hurt yourself or someone else? Patient reports no desire to harm self or others. Onset of symptoms was January 08, 2021. 12:53 Method Of Arrival: Wheelchair ll1 12:53 Acuity: CELY 2 ll1 Historical: - Allergies: 12:54 No Known Allergies; ll1 - PMHx: 12:54 Osteopenia; ll1 - PSHx: 12:54 Appendectomy; ll1 - Immunization history:: Flu vaccine is not up to date. - Social history:: Smoking status: Patient denies any tobacco usage or history of. - Family history:: not pertinent. - Hospitalizations: : The patient was recently seen at [facility]. Screenin:07 Abuse screen: Denies threats or abuse. Denies injuries from another. Nutritional aj1 screening: No deficits noted. Tuberculosis screening: No symptoms or risk factors identified. 16:20 Fall Risk None identified. aj1 Assessment: 13:07 General: Appears uncomfortable, Behavior is cooperative, anxious. Pain: Complains of aj1 pain in chest Pain does not radiate. Pain currently is 8 out of 10 on a pain scale. Quality of pain is described as pressure, sharp, Pain began 2 hours ago. Neuro: Level of Consciousness is awake, alert, obeys commands, Oriented to person, place, time, situation. Cardiovascular: Reports chest pain, palpitations, shortness of breath, Heart tones S1 S2 present Patient's skin is warm and dry. Rhythm is sinus tachycardia. Respiratory: Airway is patent Respiratory effort is even, unlabored, Respiratory pattern is regular, symmetrical, Breath sounds are clear bilaterally. GI: No signs and/or symptoms were reported involving the gastrointestinal system. : No signs and/or symptoms were reported regarding the genitourinary system. EENT: No signs and/or symptoms were reported regarding the EENT system. Derm: No signs and/or symptoms reported regarding the dermatologic system. Skin is pink, warm \T\ dry. normal. Musculoskeletal: No signs and/or symptoms reported regarding the musculoskeletal system. Circulation, motion, and sensation intact. 14:22 Reassessment: Patient states that she is feeling a bit better, she still has some chest aj1 pain but it has improved some since administration of metoprolol. 15:25 Reassessment: Patient appears in no apparent distress at this time. No changes from ll1 previously documented assessment. Patient and/or family updated on plan of care and expected duration. Pain level reassessed. Patient is alert, oriented x 3, equal unlabored respirations, skin warm/dry/pink. 16:12 Reassessment: Patient appears in no apparent distress at this time. No changes from ll1 previously documented assessment. Patient and/or family updated on plan of care and expected duration. Pain level reassessed. Patient is alert, oriented x 3, equal unlabored respirations, skin warm/dry/pink. Vital Signs: 12:53 Pulse 117; Resp 18; Pulse Ox 99% ; Weight 104.33 kg; Pain 8/10; ll1 13:07 BP 124 / 90; aj1 14:25 BP 128 / 91; Pulse 95; Resp 16; Pulse Ox 97% on R/A; aj1 15:30 BP 117 / 81; Pulse 82; Resp 18; Pulse Ox 97% on R/A; aj1 16:20 BP 110 / 77; Pulse 80; Resp 18; Pulse Ox 97% ; aj1 ED Course: 12:52 Patient arrived in ED. ll1 12:54 Triage completed. ll1 12:54 Arm band placed on Patient placed in an exam room, on a stretcher. ll1 12:55 Adis Tran MD is Attending Physician. rn 13:05 Donna Mendoza, RN is Primary Nurse. aj1 13:07 Patient has correct armband on for positive identification. Bed in low position. Call aj1 light in reach. quality assurance monitor body on. Pulse ox on. NIBP on. 13:07 No provider procedures requiring assistance completed. Patient maintains SpO2 aj1 saturation greater than 95% on room air. 13:26 Initial lab(s) drawn, by me, sent to lab. Inserted saline lock: 20 gauge in right aj1 antecubital area, using aseptic technique. Blood collected. 14:23 XRAY Chest (1 view) In Process Unspecified. EDMS 16:25 IV discontinued, intact, bleeding controlled, No redness/swelling at site. Pressure aj1 dressing applied. Administered Medications: 13: Drug: NS 0.9% 1000 ml Route: IV; Rate: 1000 ml; Site: right antecubital; aj1 13:26 Drug: Metoprolol 25 mg Route: PO; aj1 Outcome: 15:17 Discharge ordered by . rn 16:20 Discharged to home ambulatory. aj1 16:20 Condition: good 16:20 Discharge instructions given to patient, Instructed on discharge instructions, follow up and referral plans. Demonstrated understanding of instructions, follow-up care. 16:26 Patient left the ED. aa5 Signatures: Dispatcher [employer] EDMO Donna Mendoza, RN RN aj1 Adis Tran MD MD rn Calderon, Audri, RN RN aa5 Kavon Baltazar RN RN ll1
--- NOTE | 2021-01-08 15:18 | EDPHYS ---
Physician Documentation [facility] Name: Marcie Shell Age: 40 yrs Sex: Female : 1980 Arrival Date: 01/08/2021 Time: 12:52 Bed 13 Private MD: ED Physician Adis Tran HPI: 01/08 13:01 This 40 yrs old Female presents to ER via Wheelchair with complaints of Chest rn Pain - Fast HR. 13:01 The patient or guardian reports chest pain that is located primarily in the substernal rn area. The pain does not radiate. Associated signs and symptoms: Pertinent positives: palpitations. The chest pain is described as aching. Duration: The patient or guardian reports a single episode. Modifying factors: The symptoms are alleviated by nothing. the symptoms are aggravated by nothing. Severity of pain: At its worst the pain was moderate in the emergency department the pain is unchanged. The patient has experienced a previous episode. Reports admitted this past week for SVT, sent home with metoprolol, sounds like given adenosine in ER with improvement. At work today, felt palpitations up to 150s, and assoc chest pain. No fever. NO trauma. No new medication other than metoprolol. . Historical: - Allergies: 12:54 No Known Allergies; ll1 - PMHx: 12:54 Osteopenia; ll1 - PSHx: 12:54 Appendectomy; ll1 - Immunization history:: Flu vaccine is not up to date. - Social history:: Smoking status: Patient denies any tobacco usage or history of. - Family history:: not pertinent. - Hospitalizations: : The patient was recently seen at [facility]. ROS: 13:01 Constitutional: Negative for fever, chills, and weight loss, Eyes: Negative for injury, rn pain, redness, and discharge, Neck: Negative for injury, pain, and swelling, Cardiovascular: Negative for edema Respiratory: Negative for cough, wheezing, and pleuritic chest pain, Abdomen/GI: Negative for abdominal pain, nausea, vomiting, diarrhea, and constipation, Back: Negative for injury and pain, : Negative for injury, bleeding, discharge, and swelling, MS/Extremity: Negative for injury and deformity, Skin: Negative for injury, rash, and discoloration, Neuro: Negative for headache, weakness, numbness, tingling, and seizure. Exam: 13:01 Constitutional: This is a well developed, well nourished patient who is awake, alert, rn appears anxious Head/Face: Normocephalic, atraumatic. Eyes: Periorbital areas with no swelling, redness, or edema. ENT: MMM Cardiovascular: Tachycardic, regular Respiratory: No increased work of breathing, no retractions or nasal flaring. Skin: Warm, dry with normal turgor. Normal color with no rashes, no lesions, and no evidence of cellulitis. MS/ Extremity: Pulses equal, no cyanosis. Neurovascular intact. Full, normal range of motion. Equal circumference. Neuro: Awake and alert, GCS 15 Vital Signs: 12:53 Pulse 117; Resp 18; Pulse Ox 99% ; Weight 104.33 kg; Pain 8/10; ll1 13:07 BP 124 / 90; aj1 14:25 BP 128 / 91; Pulse 95; Resp 16; Pulse Ox 97% on R/A; aj1 15:30 BP 117 / 81; Pulse 82; Resp 18; Pulse Ox 97% on R/A; aj1 16:20 BP 110 / 77; Pulse 80; Resp 18; Pulse Ox 97% ; aj1 MDM: 12:55 Patient medically screened. rn 15:16 Differential diagnosis: acute pericarditis, anxiety, pleurisy, pneumothorax, SVT, rate rn related pain. Data reviewed: vital signs, nurses notes, old medical records, EKG, radiologic studies, plain films, and as a result, I will discharge patient. Counseling: I had a detailed discussion with the patient and/or guardian regarding: the historical points, exam findings, and any diagnostic results supporting the discharge/admit diagnosis, radiology results, the need for outpatient follow up, to return to the emergency department if symptoms worsen or persist or if there are any questions or concerns that arise at home. Response to treatment: the patient's symptoms have markedly improved after treatment, the patient's symptoms have resolved after treatment, the patient's condition has returned to base line, the patient is now symptom free, and as a result, I will discharge patient. Special discussion: I discussed with the patient/guardian in detail that at this point there is no indication for admission to the hospital. It is understood, however, that if the symptoms persist or worsen the patient needs to return immediately for re-evaluation. Based on the history and exam findings, there is no indication for further emergent testing or inpatient evaluation. I discussed with the patient/guardian the need to see the floor layer apprentice for further evaluation of the symptoms. ED course: Pt improved and pain resolved after rate control, cxr neg, recommend continuation of metoprolol and f/u with electrophysiology for ablation.. 01/08 13:37 Order name: XRAY Chest (1 view); Complete Time: 15:04 rn 01/08 13:01 Order name: EKG; Complete Time: 13:02 rn 01/08 13:01 Order name: EKG - Nurse/Tech; Complete Time: 13: rn 01/08 13:16 Order name: IV Start; Complete Time: : rn Administered Medications: 13: Drug: NS 0.9% 1000 ml Route: IV; Rate: 1000 ml; Site: right antecubital; aj 13:26 Drug: Metoprolol 25 mg Route: PO; aj1 Disposition: 01/08/21 15:17 Discharged to Home. Impression: Chest pain, unspecified, Supraventricular tachycardia. - Condition is Stable. - Discharge Instructions: Nonspecific Chest Pain, Paroxysmal Supraventricular Tachycardia, Cardiac Ablation. - Medication Reconciliation Form, Thank You Letter, Antibiotic Education, Prescription Opioid Use form. - Follow up: Private Physician; When: As needed; Reason: Recheck today's complaints, Re-evaluation by your physician. - Problem is an ongoing problem. - Symptoms have improved. Signatures: Dispatcher [employer] EDMS Donna Mendoza RN RN aj1 Adis Tran MD MD rn Calderon, Audri, RN RN aa5 Kavon Baltazar RN RN ll1 Corrections: (The following items were deleted from the chart) 16:26 15:17 01/08/2021 15:17 Discharged to Home. Impression: Chest pain, unspecified; aa5 Supraventricular tachycardia. Condition is Stable. Forms are Medication Reconciliation Form, Thank You Letter, Antibiotic Education, Prescription Opioid Use. Follow up: Private Physician; When: As needed; Reason: Recheck today's complaints, Re-evaluation by your physician. Problem is an ongoing problem. Symptoms have improved. rn
[2021-01-08 16:35] VITALS: BP 128/91; O2SAT 97
== END 2021-01-08 16:26 | disposition home or self-care (01) ==
LOC: ER 12:47
DX: I47.1 Supraventricular tachycardia (principal)
CPT/HCPCS: 93005; 71045; 99285; J7030

== ENCOUNTER 2021-04-17 21:11 | Emergency (ER) | payer OTHER ==
--- OUTSIDE RECORDS SUMMARY | 2021-04-17 21:14 | XMS REPORT | Continuity of Care Document ---
:1980 Author Organization [facility] t Address [address] [place]. [id number] Care Team Providers Name Role Phone Tiburcio Childs MD Primary Care Physician Abhinav NAIDU Attending Clinician Shyanne Snow MD Attending Clinician Deisy Laird CRNA Attending Clinician MD ABHINAV Attending Clinician Unavailable Tiburcio Childs MD Attending Clinician ABHINAV Admitting Clinician Unavailable MD ABHINAV Admitting Clinician Unavailable Payers Payer Name Policy Type Policy Effective Date Expiration Date Sour ce Number AETNAAETNA PPO [id number] 2020 [facility] [id number] 2020-Present PPO Problems Condition Condition Condition Status Onset Resolution Last Treating Co mments Source Name Details Category Date Date Treatment Clinician Date SVT SVT Disease Active Methodi (supravent (supravent 7-02 st ricular ricular 00:00: Hospita tachycardi tachycardi 00 l a) a) Attention Attention Disease Active Uni vers deficit deficit 08-28 ity of disorder disorder 00:00: [place] adult of adult 00 Medica l Branch Osteopenia Osteopenia Disease Active U nivers 08-28 ity of 00:00: [place] 00 Medical Branch Allergies, Adverse Reactions, Alerts Allergy Allergy Status Severity Reaction(s) Onset Inactive Treating Comm ents Source Name Type Date Date Clinician Daisy Nathan Active Unknown - Uni vers delcid ty to See comments 08-28 ity of Succinat adverse 00:00: [place] e reaction 00 Medical s Branch Social History Social Habit Start Date Stop Date Quantity Comments Source Tobacco use and 2021-03-17 2021-03-17 [facility] used [facility]00 [facility] Alcohol intake 2021-03-17 2021-03-17 Current drinker of Me thodist 00:00:00 00:00:00 alcohol (finding) Hospita l Alcohol Comment 2021-02-20 2021-02-20 occassionally Method ist 00:00:00 00:00:00 Hospital Sex Assigned At [birth year] [facility] 00[facility] Smoking Status Start Date Stop Date Source [facility] Medications Ordered Filled Start Stop Current Ordering Indication Dosage Frequency Signature Comments Components Source Medication Medication Date Date Medication? Clinician (SIG) Name Name metoprolol 2020- No 25mg Q.5D Take 25 mg Methodi tartrate 02-[address] (LOPRESSOR) 19:59: 00:00 (two) Hosp josemanuel 25 mg 13 :00 times a l tablet day. LAST TAKEN ON 02/13/2021 aspirin No 325mg QD Take 1 Method i (ECOTRIN) 02-[address] 325 MG 00:00: 04:59 (325 mg Hospita enteric 00 :00 total) by l coated mouth tablet daily for 30 days. traMADoL 2020- No 17785 50mg Q6H Take 1 Metho di (ULTRAM) 50 02-20 07-06 tablet (50 s t mg tablet 00:00: 04:59 mg total) Ho spita 00 :00 by mouth l every 6 (six) hours as needed for moderate pain or severe pain for up to 3 days .acute pain. amphetamine Yes Attention 20mg Take 1 Univers -dextroamph 4-06 deficit capsule by ity of etamine 00:00: disorder [place] mouth [place] (ADDERALL 00 adult every Medical XR) 20 mg morning. Branch 24 hr capsule amphetamine 2021-0 Yes Attention 20mg Take 1 Univers -dextroamph 06 deficit capsule by ity of etamine 00:00: disorder of mouth [place] (ADDERALL 00 adult every Medical XR) 20 mg morning. Branch 24 hr capsule albuterol Yes Bronchospas 2{puff} Inhale 2 [facility] 90 8-06 m Puffs ity of mcg/actuati 00:00: every 6 Matthias as on inhaler 00 (six) Medical hours as Branch needed for Wheezing or Shortness of Breath. albuterol Yes Bronchospas 2{puff} Inhale 2 [facility] 90 8-06 m Puffs ity of mcg/actuati 00:00: every 6 Matthias as on inhaler 00 (six) Medical hours as Branch needed for Wheezing or Shortness of Breath. Vital Signs Vital Name Observation Time Observation Value Comments Source Heart rate 2021-02-20 19:45:00 98 /min [facility] Respiratory rate 2021-02-20 19:45:00 20 /min [facility] Oxygen saturation in 2021-02-20 19:45:00 97 /min [facility] Arterial blood by Pulse oximetry Systolic blood 2021-02-20 19:30:00 122 mm[Hg] [facility] pressure Diastolic blood 2021-02-20 19:30:00 81 mm[Hg] [facility] pressure Body temperature 2021-02-20 15:47:00 36.5 Kirstin [facility] Body height 2021-02-20 11:18:00 160 cm [facility] Body weight 2021-02-20 11:18:00 87.499 kg [facility] BMI 2021-02-20 11:18:00 34.17 kg/m2 [facility] Procedures Procedure Date / Time Performing Clinician Source Performed ECG 12-LEAD 2021-02-20 16:00:44 Chidi Latal EP ELECTROPHYSIOLOGY 2021-02-20 15:21:47 [facility] PROCEDURE CV INTRACARDIAC 2021-02-20 15:21:47 Chidi La ECHOCARDIOGRAM ACTIVATED CLOTTING TIME 2021-02-20 15:14:00 [facility] ACTIVATED CLOTTING TIME 2021-02-20 15:05:00 [facility] ACTIVATED CLOTTING TIME 2021-02-20 14:49:00 [facility] TYPE AND SCREEN 2021-02-20 11:57:00 [facility] spital POC , URINE 2021-02-20 11:40:00 [facility] ECG PRE/POST OP 2021-02-20 11:17:11 [facility] spital PROTHROMBIN TIME WITH INR 2021-02-16 18:36:00 [facility] COMPREHENSIVE METABOLIC 2021-02-16 18:36:00 [facility] PANEL HC COMPLETE BLD COUNT 2021-02-16 18:36:00 [facility] W/AUTO DIFF MAGNESIUM LEVEL 2021-02-16 18:36:00 [facility] spital ESTIMATED GFR 2021-02-16 18:36:00 [facility] spital COVID-19 QUALITATIVE RT-PCR 2021-02-16 18:18:00 [facility] Plan of Care Planned Activity Planned Date Details Comments Source Future Scheduled 2021-10-24 Depression University of Test 00:00:00 screening [place] [facility] (procedure) [code Branch = 985335347] Future Scheduled 2021-10-24 Depression University of Test 00:00:00 screening [place] [facility] (procedure) [code Branch = 138655518] Future Scheduled 2021-04-22 INFLUENZA VACCINE Univer sity of Test 00:00:00 (Season Ended) [place] [facility] [code = INFLUENZA Branch VACCINE (Season Ended)] Future Scheduled 2021-04-22 INFLUENZA VACCINE Univer sity of Test 00:00:00 (Season Ended) [place] [facility] [code = INFLUENZA Branch VACCINE (Season Ended)] Diagnostic Test 2020-12-26 DEXA AXIAL (HIP Expected: Universit y of Pending 00:00:00 AND SPINE) [code = 12/26/2020, [place] [facility] ical 429] Expires: Branch 12/26/2021 Diagnostic Test 2020-12-26 DEXA AXIAL (HIP Expected: Universit y of Pending 00:00:00 AND SPINE) [code = 12/26/2020, [place] [facility] ical 429] Expires: Branch 12/26/2021 Future Scheduled 2002 Screening for University of Test 00:00:00 malignant neoplasm [place] [facility] ical of cervix Branch (procedure) [code = 371568813] Future Scheduled 2002 Screening for University of Test 00:00:00 malignant neoplasm [place] [facility] ical of cervix Branch (procedure) [code = 385138421] Future Scheduled 2000-02-26 DTaP,Tdap,and Td Univers ity of Test 00:00:00 Vaccines (1 - [place] [facility] Tdap) [code = Branch DTaP,Tdap,and Td Vaccines (1 - Tdap)] Future Scheduled 2000-02-26 DTaP,Tdap,and Td Univers ity of Test 00:00:00 Vaccines (1 - [place] [facility] Tdap) [code = Branch DTaP,Tdap,and Td Vaccines (1 - Tdap)] Future Scheduled 1999 Hepatitis C University of Test 00:00:00 screening [place] [facility] (procedure) [code Branch = 518028184] Future Scheduled 1999 Hepatitis C University of Test 00:00:00 screening [place] [facility] (procedure) [code Branch = 877904529] Future Scheduled 1997 SARS-CoV-2 University of Test [...] 2 - 2-dose childhood series)] Future Scheduled COVID[facility] [code = COVID-19 VACCINE (1)] Future Scheduled [facility] Test screening (procedure) [code = 370348593] Future Scheduled [facility] for [facility] Test malignant neoplasm of cervix (procedure) [code = 972562709] Future Scheduled INFLUENZA VACCINE [facility] Test [code = INFLUENZA VACCINE] Encounters Start End Encounter Admission Attending Care Care Encounter Source Date/Time Date/Time Type Type Clinicians Facility Department ID 2021-02-20 2021-02-20 Hospital Abhinav, 1.2.840.1 [id number] Methodi 05:39:00 14:58:00 Encounter Nadim 18412.1.[address] 3.430.2.7 Hospit a .3.002285 l .8 2021-02-20 2021-02-20 Anesthesia Vesta Snow 1.2.840.1 [id number] [facility] 07:45:00 10:49:00 Event Eitan Rosmery Jo 22150.1.[address] 3.430.2.7 Hospit a .3.119170 l .8 2021-02-20 2021-02-20 Surgery [facility], 1.2.840.1 [id number] Method[facility] 08:00:00 10:20:[address] 3.430.2.7 Hospit a .3.947583 l .8 2021-02-20 2021-02-20 Travel 1.2.840.1 1.2.879.612 [id number] Method[facility] 00:00:00 00:00:[address] 3.430.2.7 0.2.7.3.698 spita .3.374928 084.8 l .8 2021-02-20 2021-02-20 Outpatient [facility] [id number] [place] 00:00:00 00:00:[address] NADIM [address] 2021-02-17 2021-02-17 Travel 1.2.840.1 1.2.042.046 [id number] Methodi 00:00:00 00:00:[address] 3.430.2.7 0.2.7.3.698 Ho spita .3.060920 084.8 l .8 2021-02-16 2021-02-16 Lab Abhinav, 1.2.840.1 [id number] Methodi 13:13:37 13:28:[address] 3.430.2.7 Hospit a .3.649409 l .8 2021-02-16 2021-02-16 Travel 1.2.840.1 1.2.082.708 [id number] Methodi 00:00:00 00:00:[address] 3.430.2.7 0.2.7.3.698 Ho spita .3.366499 084.8 l .8 2021-02-16 2021-02-16 Community Abhinav, 1.2.840.1 [id number] Methodi 00:00:00 00:00:00 Orders Nadim 99151.1.[address] 3.430.2.7 Hospit a .3.960590 l .8 2021-02-16 2021-02-16 Outpatient ABHINAV, [facility] [id number] [place] 00:00:00 00:00:00 NADIM [address] 2021-01-06 2021-01-06 [facility] 1.2.777.476 [id number] 13:26:30 23:59:00 Encounter Bryon Tamayo 350.1.13.10 Tiburcio Uriarte 4.2.7.2.686 [place] [id number] 2021-01-01 2021-01-01 Telephone [facility] 1.2.840.114 [id number] 00:00:00 00:00:00 [facility] 350.1.13.10 Tiburcio Tamayo 4.2.7.2.[address] [facility] [id number] nal [address] 2020-12-29 2020-12-29 Refill 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 Paroxysmal SVT 2. 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 Status post successful catheter ablation of SVT (left lateral accessory pathway). TITLE OF PROCEDURES:1. Complete electrophysiologic study2. Catheter ablation of supraventricular tachycardia (left lateral accessory pathway)3. 3D electroanatomic mapping4. Transseptal Puncture5. Intracardiac echocardiography6. Stimulation after drug infusion (Isuprel) 7. Recording of left atrial pressure (14 mmHg) ATTENDING SURGEON: Dr Chidi La ASSISTANTS: Dr. Nino Johnson. James Duke (Clinical Cardiac Electrophysiology Fellow) ANESTHESIA: MAC INDICATIONS:The patient is an 40 y.o. female with history of paroxysmal symptomatic SVT (since her 20's) requiring ED visits on multiple occasions is referred for electrophysiologic study and catheter ablation of supraventricular tachycardia. At baseline she has intermittent manifest preexcitation of a LLAP. Her SVT episodes have been terminated by adenosine at ED visits and occasionally terminated with vagal maneuvers at home. Symptoms have progressively gotten worse and episodes last longer, thus she is now referred to the EP lab. DOCUMENTATION OF INFORMED CONSENT:Prior to the procedure, I had spoken extensively with the patient regarding the risks, benefits, and alternatives to catheter ablation of supraventricular tachycardia. The risks discussed included, but were not limited to the risks of , bleeding, perforation, infection, tamponade, heart failure, and recurrent arrhythmias. They asked appropriate questions and these were fully answered and they wished to proceed. DETAILS:After written informed consent was obtained from the patient in the fasting, nonsedated state, the patient was brought to the cardiac catheterization laboratory and was anesthetized as above. Vascular access was now obtained using a modified Seldinger technique and guided by ultrasonography as follows:1. Right femoral vein: 10-Fr, 8-Fr, 7-Fr sheaths2. Right internal jugular vein: 8-Fr sheath We now advanced catheters under fluoroscopic guidance as follows:1. A decapolar catheter was positioned in the coronary sinus with the proximal electrodes at the ostium.2. A quadripolar catheter was positioned at the bundle of His.3. A quadripolar catheter was positioned at the right ventricular apex.4. An ICE catheter was advanced to the RA5. After confirming the diagnosis, a Agilis Sheath and [place] needle were advanced to the RA and transeptal puncture was performed.6. A 4mm non-irrigated ablation catheter was used for pacing, ablation and mapping. We performed the baseline electrophysiologic study with findings given below. Left atrial pacing and recording was performed through the coronary sinus. 3D electroanatomic mapping of the right atrium was performed. Baseline characteristics were recorded. Characteristics for the accessory pathway were recorded. We proceeded with catheter ablation of a LLAP. The catheter was positioned at the accessory pathway using 3-D mapping, fluoroscopic guidance, and based on electrogram characteristics. 35W was used limiting tip temperatures to 55C. After 2 seconds of ablation we eliminated ventricular pre-excitation. We completed 90 seconds of ablation. We then repeated our EPS. We there was no conduction over the accessory pathway or induction of tachycardia. We then repeated 35W ablation for 30 more seconds to reinforce our ablation set. Next we attempted arrhythmia induction with and without isuprel. There was no induction of tachycardia or any conduction over the accessory pathway that we had just ablated. The procedure was now successfully completed. At this point, the electrophysiologic study was completed. The patient was transferred to the PACU where the sheaths were removed and hemostasis was obtained using manual compression. ESTIMATED BLOOD LOSS: 15 ml. COMPLICATIONS: None. EPS FINDINGS:1. The baseline rhythm was sinus rhythm with intermittent pre-excitation2. Conduction Intervals: PA 14 ms, AH 50 ms, HV 18 ms, QT 398 ms3. Block cycle lengths: Atrial pacing: AERP 600/260, RBERP 600/330 , AVNERP 600/300 Ventricular pacing: VERP 220 , AVNERP 600/>300, APERP 600/<260 Post RFA: AVNERP 500/250 FINAL DIAGNOSIS:Status post successful catheter ablation of ORT with a left lateral accessory pathway PLAN:The patient will be kept on bed rest per routine. Electrophysiology 2021-02- [facility] procedure 27 ELECTROPHYSIOLOGY [facility] 13:15:01 SERVICE OPERATIVE REPORT PREPROCEDURE DIAGNOSES:1. Paroxysmal SVT 2. 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 Status post successful catheter ablation of SVT (left lateral accessory pathway). TITLE OF PROCEDURES:1. Complete electrophysiologic study2. Catheter ablation of supraventricular tachycardia (left lateral accessory pathway)3. 3D electroanatomic mapping4. Transseptal Puncture5. Intracardiac echocardiography6. Stimulation after drug infusion (Isuprel) 7. Recording of left atrial pressure (14 mmHg) ATTENDING SURGEON: Dr Chidi La ASSISTANTS: Dr. Nino Johnson. James Duke (Clinical Cardiac Electrophysiology Fellow) ANESTHESIA: MAC INDICATIONS:The patient is an 40 y.o. female with history of paroxysmal symptomatic SVT (since her 20's) requiring ED visits on multiple occasions is referred for electrophysiologic study and catheter ablation of supraventricular tachycardia. At baseline she has intermittent manifest preexcitation of a LLAP. Her SVT episodes have been terminated by adenosine at ED visits and occasionally terminated with vagal maneuvers at home. Symptoms have progressively gotten worse and episodes last longer, thus she is now referred to the EP lab. DOCUMENTATION OF INFORMED CONSENT:Prior to the procedure, I had spoken extensively with the patient regarding the risks, benefits, and alternatives to catheter ablation of supraventricular tachycardia. The risks discussed included, but were not limited to the risks of , bleeding, perforation, infection, tamponade, heart failure, and recurrent arrhythmias. They asked appropriate questions and these were fully answered and they wished to proceed. DETAILS:After written informed consent was obtained from the patient in the fasting, nonsedated state, the patient was brought to the cardiac catheterization laboratory and was anesthetized as above. Vascular access was now obtained using a modified Seldinger technique and guided by ultrasonography as follows:1. Right femoral vein: 10-Fr, 8-Fr, 7-Fr sheaths2. Right internal jugular vein: 8-Fr sheath We now advanced catheters under fluoroscopic guidance as follows:1. A decapolar catheter was positioned in the coronary sinus with the proximal electrodes at the ostium.2. A quadripolar catheter was positioned at the bundle of His.3. A quadripolar catheter was positioned at the right ventricular apex.4. An ICE catheter was advanced to the RA5. After confirming the diagnosis, a Agilis Sheath and [place] needle were advanced to the RA and transeptal puncture was performed.6. A 4mm non-irrigated ablation catheter was used for pacing, ablation and mapping. We performed the baseline electrophysiologic study with findings given below. Left atrial pacing and recording was performed through the coronary sinus. 3D electroanatomic mapping of the right atrium was performed. Baseline characteristics were recorded. Characteristics for the accessory pathway were recorded. We proceeded with catheter ablation of a LLAP. The catheter was positioned at the accessory pathway using 3-D mapping, fluoroscopic guidance, and based on electrogram characteristics. 35W was used limiting tip temperatures to 55C. After 2 seconds of ablation we eliminated ventricular pre-excitation. We completed 90 seconds of ablation. We then repeated our EPS. We there was no conduction over the accessory pathway or induction of tachycardia. We then repeated 35W ablation for 30 more seconds to reinforce our ablation set. Next we attempted arrhythmia induction with and without isuprel. There was no induction of tachycardia or any conduction over the accessory pathway that we had just ablated. The procedure was now successfully completed. At this point, the electrophysiologic study was completed. The patient was transferred to the PACU where the sheaths were removed and hemostasis was obtained using manual compression. ESTIMATED BLOOD LOSS: 15 ml. COMPLICATIONS: None. EPS FINDINGS:1. The baseline rhythm was sinus rhythm with intermittent pre-excitation2. Conduction Intervals: PA 14 ms, AH 50 ms, HV 18 ms, QT 398 ms3. Block cycle lengths: Atrial pacing: AERP 600/260, RBERP 600/330 , AVNERP 600/300 Ventricular pacing: VERP 220 , AVNERP 600/>300, APERP 600/<260 Post RFA: AVNERP 500/250 FINAL DIAGNOSIS:Status post successful catheter ablation of ORT with a left lateral accessory pathway PLAN:The patient will be kept on bed rest per routine. Activated clotting time 2021-02-23 13:39:38 Test Item Value Reference Range Interpretation Comme nts Activated clotting time (test See_Comment [Automated message] The system which code = 5298) generated this result transmitted reference range : 96 - 152 sec. The reference range was not used to interpret this result as normal/abnormal . [facility] 12 [id number] 03:06:26 Test Item Value Reference Range Interpretation Comments Ventricular rate (test code = 253) Atrial rate (test code = 255) [place] interval (test code = 266) QRSD interval (test code = 260) QT interval (test code = 264) QTC interval (test code = 265) P axis 1 (test code = 267) QRS axis 1 (test code = 268) T wave axis (test code = 270) EKG impression (test Normal sinus code = 273) rhythm-Normal ECG-In automated comparison with ECG of 20-FEB-2021 06:17,-No significant change was found- [facility] Pre/Post [id number] 15:30:22 Test Item Value Reference Range Interpretation Comments Ventricular rate (test code = 253) Atrial rate (test code = 255) [place] interval (test code = 266) QRSD interval (test code = 260) QT interval (test code = 264) QTC interval (test code = 265) P axis 1 (test code = 267) QRS axis 1 (test code = 268) T wave axis (test code = 270) EKG impression (test Normal sinus code = 273) rhythm-Normal ECG-No previous ECGs available-Electronica lly Signed By Samreen NAIDU [facility] ([id number]) on 02/20/2021 10:30:19 [facility] [id number] 13:30:00 Test Item Value Reference Range Interpretation Comments ABO grouping (test code = 883-9) A Rh type (test code = 94179-6) POS Antibody screen (gel) (test code = NEG 890-4) [facility] , [id number] 11:40:00 Test Item Value Reference Range Interpretation Comments test urine, POC (test Negative code = 3371308) Internal QC (test code = 257) QC acceptable [facility] qualitative [id number] 22:27:56 Test Item Value Reference Range Interpretation Comments Interpretation (test code = 5423106) COVID-19 qualitative RT-PCR Not-Detected Not-Detected result (test code = 14319-9) COVID-19 qualitative RT-PCR See link below for (test code = 7070) PDF Lab Report [facility] [id number] (COVID-19) RNA [Presence] in Respiratory specimen by TYLOR with probe [id number] 17:27:16 Test Item Value Reference Range Interpretation Comments SARS-CoV-2 (COVID-19) RNA Not detected Not-Detected [Presence] in Respiratory specimen by TYLOR with probe detection (test code = 85462-4) 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
[2021-04-17] MEDS ORDERED: ONDANSETRON 4 MG/2 ML VIAL ONE (21:54)
[2021-04-17] MEDS ORDERED: MORPHINE 4 MG/ML SYR ONE (21:54)
[2021-04-17] MEDS ORDERED: TETANUS & DIPHTHERIA TOX,ADULT 0.5 ML VIAL ONE (21:54)
[2021-04-17] MEDS ORDERED: LIDOCAINE 1% MPF 30 ML VIAL ONE (21:54)
[2021-04-17] MEDS ORDERED: MORPHINE 2 MG/ML SYR ONE (22:57)
--- NOTE | 2021-04-17 23:51 | EDPHYS ---
Physician Documentation [facility] Name: Marcie Shell Age: 41 yrs Sex: Female : 1980 Arrival Date: 04/17/2021 Time: 21:14 Bed 4 Private MD: ED Physician Adis Tran HPI: 04/17 23:39 This 41 yrs old Female presents to ER via Ambulatory with complaints of Dog rn Bite. 23:39 The patient was bitten on the mouth, by a dog, while approaching the animal, at an rn unknown location. Onset: The symptoms/episode began/occurred just prior to arrival. Animal information: Patient/Caregiver unable to provide information related to the animal. Secondary to the bite the patient reports pain. Associated signs and symptoms: Pertinent negatives: suspected foreign body. Severity of symptoms: At their worst the symptoms were mild, in the emergency department the symptoms are unchanged. The patient has not experienced similar symptoms in the past. The patient has not recently seen a physician. Patient reports was approaching puppy when mother got defensive and bit her on the mouth. Not on any blood thinners. Isolated injury.. 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 - Social history:: Smoking status: Patient denies any tobacco usage or history of. - Family history:: not pertinent. - Hospitalizations: : No recent hospitalization is reported. ROS: 23:39 ENT: Positive for lip and face laceration Neck: Negative for injury, pain, and rn swelling, Skin: Positive facial and lip laceration Neuro: Negative for headache, weakness, numbness, tingling Exam: 23:39 Constitutional: This is a well developed, well nourished patient who is awake, alert, rn holding paper towel to face Head/Face: Normocephalic, very irregular and full-thickness laceration involving the mental and lower lip region goes completely through vermilion border and split down the middle. Eyes: Pupils equal round and reactive to light, extra-ocular motions intact. Lids and lashes normal. Conjunctiva and sclera are non-icteric and not injected. Cornea within normal limits. Periorbital areas with no swelling, redness, or edema. ENT: No dental trauma Neck: Trachea midline, no masses palpated, no crepitus Vital Signs: 21:21 BP 112 / 63; Pulse 123; Resp 17 S; Temp 98.3(A); Pulse Ox 99% on R/A; Weight 80.74 kg bb (R); Height 5 ft. 3 in. (160.02 cm) (R); Pain 10/10; 23:00 BP 121 / 86; Pulse 117; Resp 17 S; Pulse Ox 96% on R/A; bb 21:21 Body Mass Index 31.53 (80.74 kg, 160.02 cm) bb Laceration: 23:39 Wound Repair of 8cm ( 3.1in ) subcutaneous laceration to mouth. Distal rn neuro/vascular/tendon intact. Anesthesia: Mental nerve blocks, bilaterally with 8 mls of 1% lidocaine. Wound prep: Extensive cleansing with hibiclenz by tx, Wound debrided minimally, Wound explored extensively. Skin closed with 7 5-0 fast absorbing gut using interrupted sutures and sterile technique. Mucosal layer closed with 3 5-0 fast absorbing gut using simple sutures and sterile technique. Skin closed with 8 5-0 fast absorbing gut using simple sutures and sterile technique. Patient tolerated well. MDM: 21:24 Patient medically screened. rn 23:39 Differential diagnosis: superficial laceration, lip laceration, full thickness. Data rn reviewed: vital signs, nurses notes, and as a result, I will discharge patient. Counseling: I had a detailed discussion with the patient and/or guardian regarding: the historical points, exam findings, and any diagnostic results supporting the discharge/admit diagnosis, the need for outpatient follow up, to return to the emergency department if symptoms worsen or persist or if there are any questions or concerns that arise at home. Response to treatment: the patient's symptoms have markedly improved after treatment, and as a result, I will discharge patient. Special discussion: I discussed with the patient/guardian in detail that at this point there is no indication for admission to the hospital. It is understood, however, that if the symptoms persist or worsen the patient needs to return immediately for re-evaluation. Based on the history and exam findings, there is no indication for further emergent testing or inpatient evaluation. I discussed with the patient/guardian the need to see the plastic surgeon for further evaluation of the symptoms. ED course: Patient tolerated suturing well. Updated tetanus. Consulted with Dr. Barrera, states can follow-up in clinic Tuesday at 8:30 AM for evaluation for revision or graft.. 04/17 21:25 Order name: Suture Tray at Bedside; Complete Time: 21:46 rn 04/17 21:26 Order name: IV Start; Complete Time: 21:46 rn Administered Medications: 21:45 Drug: morphine 4 mg {Note: RASS 0.} Route: IVP; Site: right antecubital; bb 22:30 Follow up: Response: No adverse reaction; Pain is decreased; RASS: Alert and Calm (0) bb 21:46 CANCELLED (Duplicate Order): Tetanus-Diphtheria Toxoid Adult 0.5 ml IM once bb 21:47 Drug: Tetanus-Diphtheria Toxoid Adult 0.5 ml {Financial Services Representative: [employer]. Exp: bb 12/12/2022. Lot #: [id number]. } Route: IM; Site: right deltoid; 22:30 Follow up: Response: No adverse reaction bb 21:48 Drug: Zofran (Ondansetron) 4 mg Route: IVP; Site: right antecubital; bb 22:30 Follow up: Response: No adverse reaction bb 22:26 Drug: Lidocaine (1 %) 1 vials {Note: medication administered by provider .} Volume: 20 ea ml; Route: Infiltration; 23:35 Follow up: Response: No adverse reaction bb 23:45 Drug: Demerol (meperidine) 25 mg Route: IVP; Site: right antecubital; ea 04/18 00:04 Follow up: Response: No adverse reaction; Pain is decreased; RASS: Alert and Calm (0) bb Disposition Summary: 04/17/21 23:50 Discharge Ordered Location: Home rn Problem: new rn Symptoms: have improved rn Condition: Stable rn Diagnosis - Bitten by dog rn - Laceration of lip and oral cavity without foreign body rn Followup: rn - With: Otoniel Barrera MD - When: 04/20/2021 - Reason: Wound Recheck, Recheck today's complaints, Continuance of care, Re-evaluation by your physician Discharge Instructions: - Discharge Summary Sheet rn - Laceration Care, Adult rn - Facial Laceration rn Forms: - Medication Reconciliation Form rn - Thank You Letter rn - 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 - Prescription Opioid Use rn Prescriptions: - Augmentin 875-125 mg Oral Tablet - take 1 tablet by ORAL route every 12 hours for 10 days; 20 tablet; Refills: 0, rn Product Selection Permitted - Ultram 50 mg Oral Tablet - take 1 tablet by ORAL route every 6 hours As needed; 15 tablet; Refills: 0, rn Product Selection Permitted Signatures: Tena Mendoza RN RN bb Nieto, Roman, MD MD rn Antunez, Elena, RN RN ea Corrections: (The following items were deleted from the chart) 04/17 21:25 21:23 Home Meds: Vyvanse 40 mg Oral cap 1 cap once daily; chito dale : 21:23 PMHx: Osteopenia; chito dale 21: 21:46 Tetanus-Diphtheria Toxoid Adult 0.5 ml IM once ordered. chito dale
--- NOTE | 2021-04-17 23:51 | ER ---
Nurse's Notes [facility] Name: Marcie Shell Age: 41 yrs Sex: Female : 1980 Arrival Date: 04/17/2021 Time: 21:14 Bed 4 Private MD: Diagnosis: Bitten by dog;Laceration of lip and oral cavity without foreign body Presentation: 04/17 21:21 Chief complaint: Patient states: she was bit by a momma dog when looking at her puppies bb just prior to arrival pt was jagged laceration to mouth. Coronavirus screen: At this time, the client does not indicate any symptoms associated with coronavirus-19. Ebola Screen: No symptoms or risks identified at this time. Initial Sepsis Screen: Does the patient meet any 2 criteria? No. Patient's initial sepsis screen is negative. Does the patient have a suspected source of infection? No. Patient's initial sepsis screen is negative. Risk Assessment: Do you want to hurt yourself or someone else? Patient reports no desire to harm self or others. Onset of symptoms was April 17, 2021. 21:21 Method Of Arrival: Ambulatory bb 21:21 Acuity: CELY 3 bb Triage Assessment: 21:23 Bite description: bite sustained to mouth is full thickness, by a dog, animal bb information: vaccination(s) is unknown. 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 - Social history:: Smoking status: Patient denies any tobacco usage or history of. - Family history:: not pertinent. - Hospitalizations: : No recent hospitalization is reported. Screenin:38 Abuse screen: Denies threats or abuse. Nutritional screening: No deficits noted. ea Tuberculosis screening: No symptoms or risk factors identified. Fall Risk None identified. Assessment: 21:48 General: Appears in no apparent distress. uncomfortable, Behavior is calm, cooperative. bb Pain: Complains of pain in mouth Pain currently is 10 out of 10 on a pain scale. Neuro: Level of Consciousness is awake, alert, obeys commands, Oriented to person, place, time, situation. Cardiovascular: Capillary refill < 3 seconds Patient's skin is warm and dry. Rhythm is sinus tachycardia. Respiratory: Respiratory effort is even, unlabored, Respiratory pattern is regular. GI: No signs and/or symptoms were reported involving the gastrointestinal system. EENT: jagged laceration to lower lip. Derm: Skin jagged laceration to mouth Skin is pink, warm \T\ dry. Musculoskeletal: Circulation, motion, and sensation intact. 23:00 Reassessment: Patient is alert, oriented x 3, equal unlabored respirations, skin bb warm/dry/pink. sutures intact to lower lip, states pain is coming back Dr Tran notified new orders received pt medicated see OCT. 04/18 00:03 Reassessment: Patient is alert, oriented x 3, equal unlabored respirations, skin bb warm/dry/pink. sutures intact, pt verbalized understanding of and agrees to plan of care discharge instructions given pt assisted to exit by this RN accompanied by spouse. Vital Signs: 04/17 21:21 BP 112 / 63; Pulse 123; Resp 17 S; Temp 98.3(A); Pulse Ox 99% on R/A; Weight 80.74 kg bb (R); Height 5 ft. 3 in. (160.02 cm) (R); Pain 10/10; 23:00 BP 121 / 86; Pulse 117; Resp 17 S; Pulse Ox 96% on R/A; bb 21:21 Body Mass Index 31.53 (80.74 kg, 160.02 cm) bb ED Course: 21:14 Patient arrived in ED. wm 21:23 Triage completed. bb 21:23 Arm band placed on Patient placed in an exam room, on a stretcher, on livestock counter, bb on pulse oximetry. 21:24 Adis Tran MD is Attending Physician. rn 21:38 Georgie Singer RN is Primary Nurse. ea 21:38 Patient has correct armband on for positive identification. Bed in low position. Call ea light in reach. Side rails up X2. 21:44 Inserted saline lock: 20 gauge in right antecubital area, using aseptic technique. bb 23:07 Assist provider with laceration repair on mouth that was between 2.6 to 7.5 cm using ea sutures. Set up tray. Performed by Adis Tran MD Patient tolerated well. 23:49 Otoniel Barrera MD is Referral Physician. rn 04/18 00:05 IV discontinued, intact, bleeding controlled, No redness/swelling at site. Pressure bb dressing applied. 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 Exp: bb 12/12/2022. Lot #: [id number]. } Route: IM; Site: right deltoid; 22:30 Follow up: Response: No adverse reaction bb 21:48 Drug: Zofran (Ondansetron) 4 mg Route: IVP; Site: right antecubital; bb 22:30 Follow up: Response: No adverse reaction bb 22:26 Drug: Lidocaine (1 %) 1 vials {Note: medication administered by provider .} Volume: 20 ea ml; Route: Infiltration; 23:35 Follow up: Response: No adverse reaction bb 23:45 Drug: Demerol (meperidine) 25 mg Route: IVP; Site: right antecubital; ea 04/18 00:04 Follow up: Response: No adverse reaction; Pain is decreased; RASS: Alert and Calm (0) bb Outcome: 04/17 23:50 Discharge ordered by . rn 04/18 00:05 Discharged to home via wheelchair, with family. bb Condition: stable Discharge instructions given to patient, Instructed on discharge instructions, follow up and referral plans. medication usage, wound care, Demonstrated understanding of instructions, follow-up care, medications, wound care, Prescriptions given X 2. 00:05 Patient left the ED. bb Signatures: Tena Mendoza RN RN bb Nieto, Roman, MD MD rn Antunez, Elena, RN RN ea Marsh, Wendy wm Corrections: (The following items were deleted from the chart) 04/17 21:25 21:23 Home Meds: Vyvanse 40 mg Oral cap 1 cap once daily; bb bb 21:25 21:23 PMHx: Osteopenia; bb bb
[2021-04-18] MEDS ORDERED: MEPERIDINE HCL 25 MG/ML SYR ONE (00:06)
[2021-04-18 00:26] VITALS: TEMP 98.3
[2021-04-18 00:28] VITALS: BP 121/86; O2SAT 96
== END 2021-04-18 00:05 | disposition home or self-care (01) ==
LOC: ER 21:11
PROC: 0JQ10ZZ Repair Face Subcutaneous Tissue and Fascia, Open Approach (ICD-10-PCS; principal; 2021-04-18)
DX: S01.511A Laceration without foreign body of lip, initial encounter (principal); S01.512A Laceration without foreign body of oral cavity, initial encounter; W54.0XXA Bitten by dog, initial encounter; Z23 Encounter for immunization
CPT/HCPCS: 90471; 90714; 96375; 96374; 99284; 12015; J2270; J2175; J2405

== ENCOUNTER 2024-06-17 10:10 | Emergency (ER) | payer BC, OTHER ==
[2024-06-17] MEDS ORDERED: NA CHLORIDE 0.9% 1,000 ML ONE (10:48)
[2024-06-17] MEDS ORDERED: ONDANSETRON 4 MG/2 ML VIAL ONE (10:48)
[2024-06-17] MEDS ORDERED: FAMOTIDINE 20 MG/2 ML VIAL IV ONE (10:48)
[2024-06-17 10:53] LABS: Absolute Lymphocytes (CBC) 1.9 K/uL (0.7-4.9); Absolute Monocytes 0.6 K/uL (0.1-1.3); Absolute Neutrophil 5.9 K/uL (1.8-8.0); Basophils % 0.2 % (0-1.3); Eosinophils % 0.1 % (0-4.4); Hematocrit 40.9 % (36.0-45.0); Hemoglobin 13.5 g/dL (12.0-15.0); Lymphocytes % 22.9 % (15.3-44.8); MCH 29.9 pg (27.0-35.0); MCHC 32.9 g/dL (32.0-36.0); MCV 90.9 fL (80-100); MPV 7.6 fL (7.6-11.3); Monocytes % 6.8 % (3.3-12.3); Platelets 311 thou/uL (152-406); Red Cell Distribution Width 14.1 % (12.1-15.2)
[2024-06-17 11:13] LABS: Albumin 3.7 g/dL (3.4-5.0); Albumin/Globulin Ratio 1.1 (1.1-1.8); Anion Gap 8.6 mEq/L (5.0-15.0); Bilirubin Total 1.9 mg/dL (0.2-1.0); Globulin 3.5 g/dL (2.3-3.5); Potassium 3.6 mEq/L (3.5-5.1); Protein, Total 7.2 g/dL (6.4-8.2)
[2024-06-17] MEDS ORDERED: MORPHINE 4 MG/ML SYR ONE (11:18)
--- NOTE | 2024-06-17 12:29 | RAD REPORT ---
EXAM: Right upper quadrant ultrasound. CLINICAL HISTORY: R/O cholecystitis;Abd pain COMPARISON: None. FINDINGS: Gallbladder: Appears somewhat distended without visible stones. No wall thickening or pericholecystic fluid. Bile ducts: No or extrahepatic biliary dilatation. Common bile duct measures 7 mm. Limited imaging of the liver shows no concerning finding. IMPRESSION: No abnormal gallbladder finding aside from mild distention. Common duct is prominent for age measuring 7 mm. Recommend MRCP follow-up if clinically indicated.
--- NOTE | 2024-06-17 12:34 | EDPHYS ---
Physician Documentation [facility] Name: Marcie Shell Age: 44 yrs Sex: Female : 1980 Arrival Date: 06/17/2024 Time: 10:10 Bed 17 Private MD: ED Physician Shahram Munoz HPI: 06/17 10:14 This 44 yrs old Female presents to ER via Unassigned with complaints of Abdominal Pain 7 - Upper, Nausea. 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 The patient also reports that she has been constipated and that her last bowel movement was on Tuesday. She reports that she [place] got [place] a cruise ship this morning. She denies fever, chest pain, shortness of breath, dizziness, or urinary symptoms.. 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 - Infectious Disease History:: Denies. - Social history:: Smoking status: Patient denies any tobacco usage or history of. ROS: 10:14 Constitutional: Per HPI jh7 Exam: 10:14 Head/Face: Normocephalic, atraumatic. Eyes: Pupils equal round and reactive to light, 7 extra-ocular motions intact. Lids and lashes normal. Conjunctiva and sclera are non-icteric and not injected. Cornea within normal limits. Periorbital areas with no swelling, redness, or edema. Cardiovascular: Regular rate and rhythm with a normal S1 and S2. No gallops, murmurs, or rubs. Normal PMI, no JVD. No pulse deficits. Respiratory: Lungs have equal breath sounds bilaterally, clear to auscultation and percussion. No rales, rhonchi or wheezes noted. No increased work of breathing, no retractions or nasal flaring. Back: No spinal tenderness. No costovertebral tenderness. Full range of motion. Skin: Warm, dry with normal turgor. Normal color with no rashes, no lesions, and no evidence of cellulitis. MS/ Extremity: Pulses equal, no cyanosis. Neurovascular intact. Full, normal range of motion. Neuro: Awake and alert, GCS 15, oriented to person, place, time, and situation. Motor strength 5/5 in all extremities. Sensory grossly intact. Normal gait. 10:14 Constitutional: The patient appears alert, awake, obviously ill, 10:14 Abdomen/GI: Inspection: abdomen appears normal, Bowel sounds: normal, Palpation: soft, moderate abdominal tenderness, in the epigastric area and right upper quadrant, Vital Signs: 10:35 BP 119 / 77; Pulse 80; Resp 16; Temp 97.6(TE); Pulse Ox 99% on R/A; Weight 72.57 kg; hb Height 5 ft. 3 in. ; Pain 9/10; 12:04 BP 117 / 81; Pulse 79; Pulse Ox 99% ; ap3 13:01 BP 122 / 89; Pulse 86; Resp 18; Pulse Ox 98% on R/A; tl4 14:25 BP 127 / 87; Pulse 80; Resp 16; Temp 97.5(O); Pulse Ox 100% on R/A; tl4 10:35 Body Mass Index 28.34 (72.57 kg, 160.02 cm) hb 10:35 Pain Scale: Adult hb MDM: 10:14 Medical Screening Exam initiated jh 12:35 ED course: Spoke to patient regarding lab work and ultrasound results. Explained that [facility] there was a concern for choledocholithiasis and that she would need to be transferred due to [facility] not having the capability to perform ERCP procedure. Will initiate transfer.. 13:20 Differential diagnosis: bowel obstruction, cholecystitis, Cholelithiasis, gastritis, jh7 gastroesophageal reflux disease, Hepatitis, pancreatitis, Pyelonephritis, urinary tract infection, Choledocholithiasis. Data reviewed: vital signs, nurses notes, lab test result(s), radiologic studies, CT scan, ultrasound. Consideration of Admission/Observation Escalation of care including admission/observation considered. Will transfer for higher level of care. Management of patient was discussed with the following: Hospitalist: Dr. Chao, hospitalist, at [facility] in the [facility]. I considered the following discharge prescriptions or medication management in the emergency department Medications were administered in the Emergency Department. See MAR. Historians other than the Patient: Spouse/Significant Other: . Counseling: I had a detailed discussion with the patient and/or guardian regarding the historical points, exam findings, and any diagnostic results supporting the discharge/admit diagnosis, the need to transfer to another facility, for higher level of care. Response to treatment: the patient's symptoms have mildly improved after treatment. ED course: The patient was transferred to [facility] in the [facility] for needing an ERCP. She remained hemodynamically stable throughout her ER stay.. 06/17 10:21 Order name: CBC with Diff; Complete Time: 11:14 [facility] 06/17 10:21 Order name: CMP; Complete Time: 11:14 [facility] 06/17 10:21 Order name: Lipase; Complete Time: 11:14 [facility] 06/17 10:21 Order name: Urinalysis w/ reflexes; Complete Time: 13:17 [facility] 06/17 10:21 Order name: CT Abd/Pelvis - IV Contrast Only; Complete Time: 12:52 [facility] 06/17 11:15 Order name: US Abdomen Limited; Complete Time: 12:30 [facility] 06/17 10:21 Order name: IV Saline Lock; Complete Time: 10:53 7 06/17 10:21 Order name: Labs collected and sent; Complete Time: 10:53 7 Administered Medications: 10:53 Drug: Famotidine IVP 20 mg IVP once; dilute with 10 mL 0.9% NaCl; give over 2 minutes ap3 Route: IVP; Site: right antecubital; 12:44 Follow up: Response: No adverse reaction ap3 10:54 Drug: Ondansetron IVP 4 mg IVP once; over 2 minutes Route: IVP; Site: right antecubital;ap3 12:44 Follow up: Response: No adverse reaction ap3 10:54 Drug: NS 0.9% IV 1000 ml IV at 1 bolus Per protocol; to be given as a bolus over 60 ap3 minutes Route: IV; Rate: 1 bolus; Site: right antecubital; 12:00 Follow up: IV Status: Completed infusion; IV Intake: 1000ml ap3 11:25 Drug: morphine IVP or IV 4 mg IVP once over 4 mins Route: IVP; Infused Over: 4 mins; ap3 Site: right antecubital; 13:03 Follow up: Response: No adverse reaction; Pain is decreased tl4 Disposition Summary: 06/17/24 12:33 Transfer Ordered Notes: Transfer Location: [place] [id number] Reason: Higher level of care [facility] Condition: Stable jh Problem: new 7 Symptoms: are unchanged jh7 Accepting Physician: anthony NAIDU(06/17/24 14:27) tl4 Diagnosis - R/O Choledocholithiasis jh7 - Nausea with vomiting, unspecified jh7 - Upper abdominal pain, unspecified jh7 Forms: - Medication Reconciliation Form jh7 - SBAR form jh7 Signatures: Dispatcher [employer] EDEkta Sandhu RN RN Tracy Jacob RN RN ap3 Marcie Leary FNP HEAD BUCKER [facility] Sunil Noguera RN RN tl4 Corrections: (The following items were deleted from the chart) 10:22 10:22 CBC+H.LAB.BRZ ordered. EDMS EDMS 10:22 10:22 COMPREHENSIVE METABOLIC PANEL+C.LAB.BRZ ordered. EDMS EDMS 10:22 10:22 LIPASE+C.LAB.BRZ ordered. EDMS EDMS 10:22 10:22 Urinalysis+U.LAB.BRZ ordered. EDMS EDMS 10:22 10:22 TEST, SERUM+SC.LAB.BRZ ordered. EDMS EDMS 10:22 10:22 Abdomen Pelvis W Con+CT.RAD.BRZ ordered. EDMS EDMS 12:50 10:14 44-year-old male with a past medical history of appendectomy and being on Wegovy jh7 for weight loss presents to the ER for epigastric/right upper quadrant pain and nausea and vomiting since yesterday. The patient also reports that she has been constipated and that her last bowel movement was on Tuesday. She reports that she just got off a cruise ship this morning. She denies fever, chest pain, shortness of breath, dizziness, or urinary symptoms.. jh7 14:27 12:[address] jh7 tl4
--- NOTE | 2024-06-17 12:34 | ER ---
Nurse's Notes [facility] Name: Marcie Shell Age: 44 yrs Sex: Female : 1980 Arrival Date: 06/17/2024 Time: 10:10 Bed 17 Private MD: Diagnosis: R/O Choledocholithiasis;Nausea with vomiting, unspecified;Upper abdominal pain, unspecified Presentation: 06/17 10:35 Chief complaint: N/V and right upper abdominal pain x 3 days. Coronavirus screen: At this time, the client does not indicate any symptoms associated with coronavirus-19. Ebola Screen: No symptoms or risks identified at this time. Initial Sepsis Screen: Does the patient meet any 2 criteria? No. Patient's initial sepsis screen is negative. Does the patient have a suspected source of infection? No. Patient's initial sepsis screen is negative. Risk Assessment: Do you want to hurt yourself or someone else? Patient reports no desire to harm self or others. Onset of symptoms was June 15, 2024. 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 - Infectious Disease History:: Denies. - Social history:: Smoking status: Patient denies any tobacco usage or history of. Screenin:54 [facility] ED Fall Risk Assessment (Adult) History of falling in the last 3 months, ap3 including since admission No falls in past 3 months (0 pts) Confusion or Disorientation No (0 pts) Intoxicated or Sedated No (0 pts) Impaired Gait No (0 pts) Mobility Assist Device Used No (0 pt) Altered Elimination No (0 pt) Score/Fall Risk Level 0 - 2 = Low Risk Oriented to surroundings, Maintained a safe environment, Educated pt \T\ family on fall prevention, incl call for assistance when getting out of bed, Assessed \T\ reinforced patient's understanding of fall precautions, Hourly rounding (assess needs \T\ fall precautionary measures) done, Used ambulatory aids as needed (educated on \T\ assisted with), Used gait belt as appropriate. Abuse screen: Denies threats or abuse. Nutritional screening: No deficits noted. Tuberculosis screening: No symptoms or risk factors identified. Assessment: 10:55 General: Appears uncomfortable, Behavior is calm, cooperative, appropriate for age. ap3 Pain: Complains of pain in right upper quadrant and epigastric area Pain currently is 10 out of 10 on a pain scale. Pain began this morning Also complains of nausea. Neuro: Level of Consciousness is awake, alert, obeys commands, Oriented to person, place, time, situation. Cardiovascular: Patient's skin is warm and dry. Respiratory: Airway is patent Respiratory effort is even, unlabored, Respiratory pattern is regular, symmetrical. GI: Abd is soft. 12:50 GI: Bowel sounds present X 4 quads. tl4 13:00 Reassessment: Patient and/or family updated on plan of care and expected duration. Pain tl4 level reassessed. Patient is alert, oriented x 3, equal unlabored respirations, skin warm/dry/pink. Pt and family updated on transfer process. Pt given non-slip socks for comfort. Pt denies any other needs at this time. Family at bedside. Call putnam at bedside. Will continue to monitor. 14:26 Reassessment: Report to YONATAN Sotelo at [facility]. Report to EMS. Pt denies any needs prior tl4 to transfer. Vital Signs: 10:35 BP 119 / 77; Pulse 80; Resp 16; Temp 97.6(TE); Pulse Ox 99% on R/A; Weight 72.57 kg; hb Height 5 ft. 3 in. ; Pain 9/10; 12:04 BP 117 / 81; Pulse 79; Pulse Ox 99% ; ap3 13:01 BP 122 / 89; Pulse 86; Resp 18; Pulse Ox 98% on R/A; tl4 14:25 BP 127 / 87; Pulse 80; Resp 16; Temp 97.5(O); Pulse Ox 100% on R/A; tl4 10:35 Body Mass Index 28.34 (72.57 kg, 160.02 cm) hb 10:35 Pain Scale: Adult hb ED Course: 10:13 Patient arrived in ED. ra3 10:14 [facility] jh7 10:14 Shahram Munoz MD is Attending Physician. jh7 10:34 Tracy Jacob, YONATAN is Primary Nurse. ap3 10:41 Triage completed. hb 10:42 Arm band placed on. hb 10:53 Initial lab(s) drawn, by dc, sent to lab. Inserted saline lock: 22 gauge in right ap3 antecubital area, using aseptic technique. Blood collected. Flushed with 10 mL NS. 10:53 CBC with Diff Sent. ap3 10:53 CMP Sent. ap3 10:53 Lipase Sent. ap3 10:56 Patient has correct armband on for positive identification. Bed in low position. Call ap3 light in reach. Side rails up X 1. Adult w/ patient. Provided Education on: medications prior to administration. Pulse ox on. NIBP on. Door closed. Noise minimized. 10:56 No provider procedures requiring assistance completed. ap3 11:23 Radiology exam delayed due to test not completed at this time. mw3 12:00 Report given to yonatan jonas. ap3 12:26 US Abdomen Limited In Process Unspecified. EDMS 12:33 initiated a transfer with the [facility] Transfer [facility]. eb 12:37 CT Abd/Pelvis - IV Contrast Only In Process Unspecified. EDMS 12:50 Patient transferred, IV remains in place. tl4 13:17 connected the hospitalist health and safety consultant for [facility] with Marcie Aguilera for patient transfer eb consultation. 13:24 administrative approval given by Brooke Rossi/ patient has been accepted to [facility] room 1811/ Dr. Emma Correa has accepted the patient in transfer/ report to be called to [phone]. Administered Medications: 10:53 Drug: Famotidine IVP 20 mg IVP once; dilute with 10 mL 0.9% NaCl; give over 2 minutes ap3 Route: IVP; Site: right antecubital; 12:44 Follow up: Response: No adverse reaction ap3 10:54 Drug: Ondansetron IVP 4 mg IVP once; over 2 minutes Route: IVP; Site: right antecubital;ap3 12:44 Follow up: Response: No adverse reaction ap3 10:54 Drug: NS 0.9% IV 1000 ml IV at 1 bolus Per protocol; to be given as a bolus over 60 ap3 minutes Route: IV; Rate: 1 bolus; Site: right antecubital; 12:00 Follow up: IV Status: Completed infusion; IV Intake: 1000ml ap3 11:25 Drug: morphine IVP or IV 4 mg IVP once over 4 mins Route: IVP; Infused Over: 4 mins; ap3 Site: right antecubital; 13:03 Follow up: Response: No adverse reaction; Pain is decreased tl4 Medication: 10:56 VIS not applicable for this client. ap3 Intake: 12:00 IV: 1000ml; Total: 1000ml. ap3 Outcome: 12:33 ER care complete, transfer ordered by MD. ortiz 14:26 Transferred to [facility], Transfer form completed. tl4 14:26 Condition: stable 14:26 Instructed on the need for transfer, 14:27 Patient left the ED. tl4 Signatures: Dispatcher [employer] EDMS Ekta Denney RN Tracy Weldon RN RN ap3 Keyonna Oquendo Michelle 3 Marcie Leary, DYNAMOMETER REPAIRER DYNAMOMETER REPAIRER 7 Sunil Noguera RN RN tl4 Barbara Prince ra3 Corrections: (The following items were deleted from the chart) 12:45 12:44 Report given to yonatan jonas ap3 ap3
--- NOTE | 2024-06-17 12:51 | RAD REPORT ---
EXAMINATION: CT ABDOMEN AND PELVIS WITH CONTRAST CLINICAL INDICATION: ABD PAIN TECHNIQUE: CT abdomen and pelvis was performed, after the administration of IV contrast, as per [facility] protocol. Axial, sagittal and coronal reconstructions were obtained. One or more of the following dose reduction techniques were used: Automated exposure control, adjustment of the mA and k V according to patient size, and iterative reconstruction. Unless otherwise specified, incidental findings do not require dedicated imaging follow-up. COMPARISON: 12/26/2016 FINDINGS: LOWER CHEST: The visualized lung bases are clear. LIVER: Normal in size and contour. Small benign cyst. No aggressive mass.. Mild nonspecific gallbladd er distention. SPLEEN: Normal size. No focal lesion. PANCREAS: No mass, ductal dilation, or keya-pancreatic fluid. ADRENALS: Normal; no mass. KIDNEYS: Normal size and contour. No hydronephrosis. GASTROINTESTINAL TRACT: No evidence of free air, significant intra-abdominal free fluid, bowel obstru ction or abscess. APPENDIX: Appendix surgically absent. LYMPH NODES: No lymphadenopathy. MUSCULOSKELETAL: L5-S1 mild spondylosis. ADDITIONAL FINDINGS: Small fat-containing umbilical hernia. IUD is in place. IMPRESSION: No acute or concerning abnormalities seen in the abdomen or pelvis.
[2024-06-17 13:10] LABS: Specific Gravity > 1.030 (1.005-1.030); Sqamous Epithelial <5 /HPF (None Seen); Urine Bacteria None Seen /HPF (<20); Urine Bilirubin NEGATIVE (Negative); Urine Blood Negative (Negative); Urine Clarity Clear (Clear); Urine Color Light-Yellow (Yellow); Urine Culture Reflex Order NOT NEEDED; Urine Glucose NEGATIVE (Negative); Urine Ketones NEGATIVE (Negative); Urine Microscopic Reflex YN ORDER UMIC; Urine Mucus Slight /HPF (None Seen); Urine Nitrite NEGATIVE (Negative); Urine Protein NEGATIVE (Negative); Urine RBC <5 /HPF (None Seen); Urine Urobilinogen Normal (Normal); Urine WBC <5 /HPF (<5); Urine pH 7.5 (5.0-7.0)
[2024-06-17 19:26] VITALS: BP 127/87; TEMP 97.5; O2SAT 100
== END 2024-06-17 14:27 | disposition short-term general hospital (02) ==
LOC: ER 10:10
DX: R10.10 Upper abdominal pain, unspecified (principal); R11.2 Nausea with vomiting, unspecified
CPT/HCPCS: 85025; 81001; 36415; 83690; 80053; 74177; 76705; Q9967; J2405; J7030; 96361; 96374; 96375; 99285

== ENCOUNTER 2024-08-05 21:58 | Inpatient (IN) | payer BC ==
[2024-08-05] MEDS ORDERED: ONDANSETRON 4 MG/2 ML VIAL ONE (22:20)
[2024-08-05] MEDS ORDERED: MORPHINE 4 MG/ML SYR ONE (22:20)
[2024-08-05] MEDS ORDERED: NA CHLORIDE 0.9% 0 ML ONE (22:21)
[2024-08-05] MEDS ORDERED: FAMOTIDINE 20 MG/2 ML VIAL IV ONE (22:21)
[2024-08-05 22:30] LABS: Absolute Eosinophils 0.1 K/uL (0-0.5); Absolute Lymphocytes (CBC) 3.5 K/uL (0.7-4.9); Absolute Monocytes 0.7 K/uL (0.1-1.3); Absolute Neutrophil 7.5 K/uL (1.8-8.0); Basophils % 0.4 % (0-1.3); Eosinophils % 0.6 % (0-4.4); Hematocrit 39.5 % (36.0-45.0); Hemoglobin 12.7 g/dL (12.0-15.0); Lymphocytes % 29.9 % (15.3-44.8); MCH 29.7 pg (27.0-35.0); MCHC 32.2 g/dL (32.0-36.0); MCV 92.4 fL (80-100); MPV 7.8 fL (7.6-11.3); Monocytes % 5.5 % (3.3-12.3); Neutrophils % 63.6 % (41.7-73.7); Platelets 320 thou/uL (152-406); RBC Red Blood Cell Count 4.27 M/uL (3.86-4.86); Red Cell Distribution Width 13.7 % (12.1-15.2)
[2024-08-05 22:46] LABS: Albumin/Globulin Ratio 1.2 (1.1-1.8); Anion Gap 9.7 mEq/L (5.0-15.0); Bilirubin Total 0.9 mg/dL (0.2-1.0); Globulin 3.4 g/dL (2.3-3.5); Potassium 3.7 mEq/L (3.5-5.1); Protein, Total 7.4 g/dL (6.4-8.2)
[2024-08-05 23:35] LABS: Specific Gravity 1.021 (1.005-1.030); Sqamous Epithelial <5 /HPF (None Seen); Urine Bacteria <20 /HPF (<20); Urine Bilirubin NEGATIVE (Negative); Urine Blood Negative (Negative); Urine Clarity Turbid (Clear); Urine Color Yellow (Yellow); Urine Culture Reflex Order NOT NEEDED; Urine Glucose NEGATIVE (Negative); Urine Ketones 1+ (Negative); Urine Microscopic Reflex YN ORDER UMIC; Urine Mucus 2+ /HPF (None Seen); Urine Nitrite NEGATIVE (Negative); Urine Protein NEGATIVE (Negative); Urine RBC None Seen /HPF (None Seen); Urine Urobilinogen 1+ (Normal); Urine WBC <5 /HPF (<5); Urine pH 5.5 (5.0-7.0)
[2024-08-05] MEDS ORDERED: Levofloxacin500mg IV 500 MG/100 ML BAG IV ONE (23:42)
[2024-08-05] MEDS ORDERED: NA CHLORIDE 0.9% 1,000 ML ONE (23:42)
[2024-08-05] MEDS ORDERED: METOCLOPRAMIDE 10 MG/2mL INJ ONE (23:46)
[2024-08-06 00:16] LABS: Barbiturates NEGATIVE (NEGATIVE); Benzodiazepines NEGATIVE (NEGATIVE); Cocaine NEGATIVE (NEGATIVE); METHAMPHETAM POSITIVE (NEGATIVE); Methadone NEGATIVE (NEGATIVE); Opiates POSITIVE (NEGATIVE); Phencyclidine NEGATIVE (NEGATIVE); THC Cannibis NEGATIVE (NEGATIVE)
--- NOTE | 2024-08-06 00:50 | RAD REPORT ---
EXAM: CT ABDOMEN AND PELVIS WITH CONTRAST DATE: 08/05/2024 10:19 PM ILLUSTRATOR SET INDICATION: 44-year-old female with abdominal pain. COMPARISON: CT of the abdomen and pelvis 06/17/2024 TECHNIQUE: CT of the abdomen and pelvis acquired following the intravenous administration of contrast . Axial, coronal and sagittal images are provided. The study was performed using dose reduction techniques including automated exposure control and/or adjustment of the MA and/or KV according to pa tient size, and/or iterative reconstruction techniques. FINDINGS: Lower thorax: Minimal bibasilar subsegmental atelectasis. No consolidation or pleural effusion. Parti ally visualized heart is normal in size. Liver: Redemonstrated 0.7 cm left hepatic segment II cyst. Biliary tree: Mild intra and extrahepatic bile duct dilation. Proximal common bile duct measures 8 mm . Gallbladder: Distended gallbladder which measures 4 cm in transverse dimension, with edematous gallbl adder mural thickening and/or pericholecystic fluid. No calcified cholelithiasis. Pancreas, spleen, adrenals, kidneys and ureters: No acute lesion. No nephrolithiasis or hydronephro sis. Bladder/reproductive organs: Urinary bladder is decompressed, limiting evaluation. Anteverted uterus in situ containing T-shaped IUD in good position. Gastrointestinal tract: Lower esophagus/stomach/small bowel: Heterogeneous fluid within the stomach, presumably due to ingest ed material/chyme. Scattered mid to distal small bowel fluid filled nondilated loops small bowel without mural thickening or perienteric inflammation. Colon: Sigmoid diverticulosis. No diverticulitis. Moderate colonic fluid and a small amount of stool, which can be seen with diarrheal illness. Appendix: Status post appendectomy, with medial cecal sutures, and adjacent mesenteric clips. Peritoneum, mesentery and retroperitoneum: No free air, ascites or loculated fluid. Lymph nodes: No pathologic adenopathy based on size criteria. Vasculature: Aorta and branches: Aorta has a normal diameter. IVC and veins: IVC has a normal diameter. Subcentimeter calcified pelvic phleboliths. Bones: Degenerative changes, including mild to moderate multilevel spondylosis, most prominent at the L5-S1 level. Thoracolumbar levoscoliosis. Soft tissues: Small umbilical hernia containing adipose tissue, with fascial defect measuring 0.5 cm in transverse dimension and hernial sac measuring 1.9 cm in AP dimension. IMPRESSION: 1. Distended gallbladder with edematous gallbladder mural thickening and/or pericholecystic fluid. Mild intra and extrahepatic bile duct dilatation. No calcified cholelithiasis or choledocholithiasis. Correlation with gallbladder sonography suggested. 2. Sigmoid diverticulosis. No diverticulitis. 3. Fluid and stool within the colon which can be seen with diarrheal illness. Electronically signed by: Maurisio Negrete MD 08/06/2024 12:44 AM [facility] Due to temporary technical issues with the PACS/Empress[employer] reporting system, reports are being denis d by the in-house radiologist without review as a courtesy to ensure prompt reporting the interpreting radiologist is fully responsible for the content of the report. Transcribed Date/Time: 08/06/2024 12:49 AM
--- NOTE | 2024-08-06 01:00 | EDPHYS ---
Physician Documentation [facility] Name: Marcie Shell Age: 44 yrs Sex: Female : 1980 Arrival Date: 08/05/2024 Time: 21:58 Bed 7 Private MD: SHARON Physician Raul Clifford HPI: 08/05 23:38 This 44 yrs old Female presents to ER via Ambulatory with complaints of pratibha Abdominal Pain, Nausea. 23:38 The patient presents to the emergency department with nausea, vomiting, abdominal pain, pratibha of the right upper quadrant, left upper quadrant, right lower quadrant and left lower quadrant. Onset: The symptoms/episode began/occurred today. Possible causes: unknown. The symptoms are aggravated by nothing. The symptoms are alleviated by nothing. Associated signs and symptoms: The patient has no apparent associated signs or symptoms. Severity of symptoms: At their worst the symptoms were moderate in the emergency department the symptoms are unchanged. The patient has experienced similar episodes in the past, multiple times. 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 - Infectious Disease History:: Denies. - Social history:: Smoking status: Patient denies any tobacco usage or history of. Patient uses alcohol, Patient/guardian denies using street drugs. - Family history:: not pertinent. ROS: 23:38 Constitutional: Negative for fever, chills, and weight loss, Eyes: Negative for injury, pratibha pain, redness, and discharge, ENT: Negative for injury, pain, and discharge, Neck: Negative for injury, pain, and swelling, Cardiovascular: Negative for chest pain, palpitations, and edema, Respiratory: Negative for shortness of breath, cough, wheezing, and pleuritic chest pain, Back: Negative for injury and pain, : Negative for injury, bleeding, discharge, and swelling, MS/Extremity: Negative for injury and deformity, Skin: Negative for injury, rash, and discoloration, Neuro: Negative for headache, weakness, numbness, tingling, and seizure, Psych: Negative for depression, anxiety, suicide ideation, homicidal ideation, and hallucinations, Allergy/Immunology: Negative for hives, rash, and allergies, Endocrine: Negative for neck swelling, polydipsia, polyuria, polyphagia, and marked weight changes, Hematologic/Lymphatic: Negative for swollen nodes, abnormal bleeding, and unusual bruising, 23:38 Abdomen/GI: Positive for abdominal pain, nausea and vomiting, of the right upper quadrant and left upper quadrant, Exam: 23:38 Constitutional: This is a well developed, well nourished patient who is awake, alert, pratibha and in no acute distress. Head/Face: Normocephalic, atraumatic. Eyes: Pupils equal round and reactive to light, extra-ocular motions intact. Lids and lashes normal. Conjunctiva and sclera are non-icteric and not injected. Cornea within normal limits. Periorbital areas with no swelling, redness, or edema. ENT: Nares patent. No nasal discharge, no septal abnormalities noted. Tympanic membranes are normal and external auditory canals are clear. Oropharynx with no redness, swelling, or masses, exudates, or evidence of obstruction, uvula midline. Mucous membranes moist. Neck: Trachea midline, no thyromegaly or masses palpated, and no cervical lymphadenopathy. Supple, full range of motion without nuchal rigidity, or vertebral point tenderness. No Meningismus. Chest/axilla: Normal chest wall appearance and motion. Nontender with no deformity. No lesions are appreciated. Cardiovascular: Regular rate and rhythm with a normal S1 and S2. No gallops, murmurs, or rubs. Normal PMI, no JVD. No pulse deficits. Respiratory: Lungs have equal breath sounds bilaterally, clear to auscultation and percussion. No rales, rhonchi or wheezes noted. No increased work of breathing, no retractions or nasal flaring. Back: No spinal tenderness. No costovertebral tenderness. Full range of motion. Female : Normal external genitalia. Skin: Warm, dry with normal turgor. Normal color with no rashes, no lesions, and no evidence of cellulitis. MS/ Extremity: Pulses equal, no cyanosis. Neurovascular intact. Full, normal range of motion., bilateral aka Neuro: Awake and alert, GCS 15, oriented to person, place, time, and situation. Cranial nerves II-XII grossly intact. Motor strength 5/5 in all extremities. Sensory grossly intact. Cerebellar exam normal. Normal gait. 23:38 Abdomen/GI: Inspection: distension, that is mild, Bowel sounds: normal, Palpation: mild abdominal tenderness, moderate abdominal tenderness, in the right lower quadrant and left lower quadrant, Liver: no appreciated palpable abnormalities, Hernia: not appreciated, 23:38 Musculoskeletal/extremity: DVT Exam: No signs of deep vein thrombosis. no pain, no swelling, no tenderness, negative Homans' sign noted on exam, no appreciated bluish discoloration, no erythema, no increased warmth, 08/06 01:32 ECG was reviewed by the Attending Physician. pratibha Vital Signs: 08/05 22:14 BP 131 / 92; Pulse 85; Resp 17; Temp 97.9; Pulse Ox 100% ; Weight 68.04 kg; Height 5 bm8 ft. 3 in. ; Pain 10/10; 23:19 BP 116 / 82; Pulse 80; Resp 17; Temp 97.9; Pulse Ox 100% ; Pain 5/10; 8 08/06 00:58 BP 115 / 80; Pulse 80; Resp 17; Temp 97.9; Pulse Ox 99% ; Pain 5/10; bm8 01:42 BP 114 / 78; Pulse 76; Resp 17; Temp 98; Pulse Ox 98% ; Pain 5/10; 8 08/05 22:14 Body Mass Index 26.57 (68.04 kg, 160.02 cm) [facility] 08/05 22:14 Pain Scale: Adult bm8 23:19 Pain Scale: Adult 8 08/06 00:58 Pain Scale: Adult bm8 01:42 Pain Scale: Adult bm8 Dat Coma Score: 08/05 22:21 Eye Response: spontaneous(4). Motor Response: obeys commands(6). Verbal Response: bm8 oriented(5). Total: 15. 23:19 Eye Response: spontaneous(4). Motor Response: obeys commands(6). Verbal Response: bm8 oriented(5). Total: 15. 08/06 01:42 Eye Response: spontaneous(4). Motor Response: obeys commands(6). Verbal Response: bm8 oriented(5). Total: 15. MDM: 08/05 22:09 Medical Screening Exam initiated pratibha 23:40 Differential diagnosis: Nonspecific abd pain, gastritis, cholecystitis, pancreatitis, pratibha appendicitis, diverticulitis, viral gastroenteritis, gastroenteritis. Data reviewed: vital signs, nurses notes, lab test result(s), radiologic studies. Consideration of Admission/Observation Escalation of care including admission/observation considered. I considered the following discharge prescriptions or medication management in the emergency department Medications were administered in the Emergency Department. See MAR. Independent interpretation of the following test(s) in the Emergency Department CT Scan: My interpretation is ct abd pelvis. Test considered but Not performed: EKG: no ekg. Historians other than the Patient: pt well informed. Care significantly affected by the following chronic conditions: wpw, gastroparesis. Counseling: I had a detailed discussion with the patient and/or guardian regarding the historical points, exam findings, and any diagnostic results supporting the discharge/admit diagnosis, lab results, radiology results, the need for outpatient follow up, for definitive care, a family practitioner, a ncr operator. 08/05 22:19 Order name: CBC with Diff; Complete Time: 23:22 [facility] 08/05 22:19 Order name: CMP; Complete Time: 23:22 [facility] 08/05 22:19 Order name: Lipase; Complete Time: 23:22 [facility] 08/05 22:19 Order name: Urinalysis w/ reflexes; Complete Time: 23:36 [facility] 08/05 22:19 Order name: PREGU; Complete Time: 23:36 [facility] 08/05 23:36 Order name: UDS; Complete Time: 00:38 [facility] 08/05 23:37 Order name: Urine Culture [facility] 08/06 01:37 Order name: CBC with Automated Diff [facility] 08/06 01:37 Order name: CBC with Automated Diff [facility] 08/06 01:37 Order name: Comprehensive Metabolic Panel [facility] 08/06 01:37 Order name: Comprehensive Metabolic Panel [facility] 08/05 22:19 Order name: CT Abd/Pelvis - IV Contrast Only [facility] 08/06 00:56 Order name: US Abdomen Limited [facility] 08/06 00:57 Order name: EKG; Complete Time: 00:57 [facility] 08/06 01:37 Order name: CONS Physician Consult [facility] 08/05 22:19 Order name: IV Saline Lock; Complete Time: 22:22 [facility] 08/05 22:19 Order name: Labs collected and sent; Complete Time: : [facility] 08/06 00:57 Order name: EKG - Nurse/Tech; Complete Time: 01:14 [facility] 08/06 01:35 Order name: NPO; Complete Time: 01:37 [facility] EC/16 01:32 Rate is 77 beats/min. Rhythm is regular. QRS [place] is Normal. SD interval is normal. QRS pratibha interval is normal. QT interval is normal. No Q waves. T waves are Normal. No ST changes noted. Clinical impression: Normal ECG and No evidence of ischemia. Interpreted by me. Reviewed by me. Administered Medications: 08/05 22:22 Drug: Famotidine IVP 20 mg IVP once; dilute with 10 mL 0.9% NaCl; give over 2 minutes bm8 Route: IVP; Site: right antecubital; 23:20 Follow up: Response: No adverse reaction bm8 22:23 Drug: Ondansetron IVP 4 mg IVP once; over 2 minutes Route: IVP; Site: right antecubital;bm8 23:21 Follow up: Response: No adverse reaction bm8 22:23 Drug: morphine IVP or IV 4 mg IVP once over 4 mins Route: IVP; Infused Over: 4 mins; bm8 Site: right antecubital; 23:21 Follow up: Response: No adverse reaction bm8 22:23 Drug: NS 0.9% IV 1000 ml IV at 1 bolus Per protocol; to be given as a bolus over 60 bm8 minutes Route: IV; Rate: 1 bolus; Site: right antecubital; 23:20 Follow up: Response: No adverse reaction; IV Status: Completed infusion; IV Intake: bm8 1000ml 23:47 Drug: levofloxacin IVPB 500 mg 100 ml IVPB once over 60 mins Volume: 100 ml; Route: bm8 IVPB; Infused Over: 60 mins; Site: right antecubital; 08/06 01:37 Follow up: Response: No adverse reaction; IV Status: Completed infusion; IV Intake: bm8 100ml 08/05 23:47 Drug: metoCLOPramide IVP 10 mg IVP once; over 1 to 2 minutes Route: IVP; Site: right bm8 antecubital; 08/06 00:53 Follow up: Response: No adverse reaction bm8 08/05 23:48 Drug: NS 0.9% IV 1000 ml IV at 1 bolus Per protocol; to be given as a bolus over 60 bm8 minutes Route: IV; Rate: 1 bolus; Site: right antecubital; 08/06 01:37 Follow up: Response: No adverse reaction; IV Status: Completed infusion; IV Intake: bm8 1000ml 01:53 Drug: HYDROmorphone IVP 1 mg IVP once Route: IVP; Site: right antecubital; bm8 01:54 Follow up: Response: No adverse reaction bm8 01:53 Drug: Ondansetron IVP 4 mg IVP once; over 2 minutes Route: IVP; Site: right antecubital;bm8 01:53 Follow up: Response: No adverse reaction bm8 Disposition Summary: 08/06/24 00:59 Hospitalization Ordered Notes: Hospitalization Status: Observation pratibha Provider: Stephen Torres cha Location: Telemetry/MedSurg (observation)(08/06/24 00:59) pratibha Condition: Stable(08/06/24 00:59) pratibha Problem: new(08/06/24 00:59) pratibha Symptoms: have improved(08/06/24 00:59) pratibha Bed/Room Type: Standard [facility] Room Assignment: 207(08/06/24 01:41) af3 Diagnosis - Epigastric abdominal tenderness pratibha - Acute cholecystitis pratibha - Elevated white blood cell count(08/06/24 00:59) pratibha - Nausea pratibha - UTI/ Urinary tract infection, site not specified pratibha Forms: - Medication Reconciliation Form pratibha - SBAR form pratibha - Leadership Thank You Letter pratibha Signatures: Dispatcher [employer] Raul Gerard MD MD cha McDonald, Brad, RN RN bm8 Erlinda Castellon af3 Corrections: (The following items were deleted from the chart) 00:57 00:57 Abdomen Limited+US.RAD.BRZ ordered. EDMA EDMS 00:58 00:57 Home pratibha pratibha 00:58 00:57 new pratibha pratibha 00:58 00:57 have improved pratibha pratibha 00:58 00:57 Stable pratibha pratibha 00:58 00:57 Abdominal pain, Generalized pratibha pratibha 00:58 00:57 Vomiting without nausea pratibha pratibha 00:58 00:57 Gastroparesis pratibha pratibha 00:58 00:57 Elevated white blood cell count pratibha pratibha 01:41 00:59 pratibha af3
--- NOTE | 2024-08-06 01:00 | ER ---
Nurse's Notes [facility] Name: Marcie Shell Age: 44 yrs Sex: Female : 1980 Arrival Date: 08/05/2024 Time: 21:58 Bed 7 Private MD: Diagnosis: Epigastric abdominal tenderness;Acute cholecystitis;Elevated white blood cell count;Nausea;UTI/ Urinary tract infection, site not specified Presentation: 08/05 22:14 Chief complaint: Patient states: I have been having severe abd pain since 1600 with bm8 nausea and consistent pain. Coronavirus screen: Vaccine status: Patient reports receiving the 1st dose of the Covid vaccine. At this time, the client does not indicate any symptoms associated with coronavirus-19. Ebola Screen: Patient negative for fever greater than or equal to 101.5 degrees Fahrenheit, and additional compatible Ebola Virus Disease symptoms Patient denies exposure to infectious person. Patient denies travel to an Ebola-affected area in the 21 days before illness onset. No symptoms or risks identified at this time. Initial Sepsis Screen: Does the patient meet any 2 criteria? No. Patient's initial sepsis screen is negative. Does the patient have a suspected source of infection? No. Patient's initial sepsis screen is negative. Risk Assessment: Do you want to hurt yourself or someone else? Patient reports no desire to harm self or others. Onset of symptoms was August 05, 2024 at 16:00. Care prior to arrival: Medication(s) given: zofran 4 mg. 22:14 Method Of Arrival: Ambulatory bm8 22:14 Acuity: CELY 3 bm8 Triage Assessment: 22:16 General: Appears distressed, uncomfortable, Behavior is calm, cooperative, appropriate bm8 for age. Pain: Complains of pain in right upper quadrant and left upper quadrant Pain currently is 10 out of 10 on a pain scale. Quality of pain is described as sharp, Pain began 6 hrs. EENT: No signs and/or symptoms were reported regarding the EENT system. Neuro: No deficits noted. Level of Consciousness is awake, alert, obeys commands, Oriented to person, place, time, situation, Appropriate for age. Cardiovascular: Denies chest pain, Capillary refill < 3 seconds in bilateral fingers Patient's skin is warm and dry. Respiratory: Airway is patent Trachea midline Respiratory effort is even, unlabored, Respiratory pattern is regular, symmetrical. GI: Abdomen is flat, non-distended, Bowel sounds present X 4 quads. Reports upper abdominal pain, nausea, Pain is 10 out of 10 on a pain scale. : No signs and/or symptoms were reported regarding the genitourinary system. Derm: No signs and/or symptoms reported regarding the dermatologic system. Musculoskeletal: No signs and/or symptoms reported regarding the musculoskeletal system. 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 - Infectious Disease History:: Denies. - Social history:: Smoking status: Patient denies any tobacco usage or history of. Patient uses alcohol, Patient/guardian denies using street drugs. - Family history:: not pertinent. Screenin:21 [facility] ED Fall Risk Assessment (Adult) History of falling in the last 3 months, bm8 including since admission No falls in past 3 months (0 pts) Confusion or Disorientation No (0 pts) Intoxicated or Sedated No (0 pts) Impaired Gait No (0 pts) Mobility Assist Device Used No (0 pt) Altered Elimination No (0 pt) Score/Fall Risk Level 0 - 2 = Low Risk Oriented to surroundings, Maintained a safe environment, Educated pt \T\ family on fall prevention, incl call for assistance when getting out of bed, Assessed \T\ reinforced patient's understanding of fall precautions, Hourly rounding (assess needs \T\ fall precautionary measures) done, Used ambulatory aids as needed (educated on \T\ assisted with), Used gait belt as appropriate. Abuse screen: Denies threats or abuse. Nutritional screening: No deficits noted. Tuberculosis screening: No symptoms or risk factors identified. Assessment: 23:19 Reassessment: Patient appears in no apparent distress at this time. Patient and/or bm8 family updated on plan of care and expected duration. Pain level reassessed. Patient is alert, oriented x 3, equal unlabored respirations, skin warm/dry/pink. Patient states feeling better. Patient states symptoms have improved. Pain: Pain currently is 5 out of 10 on a pain scale. GI: Abdomen is tender to palpation in right upper quadrant and left upper quadrant. 08/06 00:58 Reassessment: Patient appears in no apparent distress at this time. Patient and/or bm8 family updated on plan of care and expected duration. Pain level reassessed. Patient is alert, oriented x 3, equal unlabored respirations, skin warm/dry/pink. Patient states feeling better. Patient states symptoms have improved. Vital Signs: 08/05 22:14 BP 131 / 92; Pulse 85; Resp 17; Temp 97.9; Pulse Ox 100% ; Weight 68.04 kg; Height 5 bm8 ft. 3 in. ; Pain 05/31; 23:19 BP 116 / 82; Pulse 80; Resp 17; Temp 97.9; Pulse Ox 100% ; Pain 5/10; 8 08/06 00:58 BP 115 / 80; Pulse 80; Resp 17; Temp 97.9; Pulse Ox 99% ; Pain 5/10; bm8 01:42 BP 114 / 78; Pulse 76; Resp 17; Temp 98; Pulse Ox 98% ; Pain 5/10; bm8 08/05 22:14 Body Mass Index 26.57 (68.04 kg, 160.02 cm) [facility] 08/05 22:14 Pain Scale: Adult bm8 23:19 Pain Scale: Adult bm8 08/06 00:58 Pain Scale: Adult bm8 01:42 Pain Scale: Adult bm8 Dat Coma Score: 08/05 22:21 Eye Response: spontaneous(4). Motor Response: obeys commands(6). Verbal Response: bm8 oriented(5). Total: 15. 23:19 Eye Response: spontaneous(4). Motor Response: obeys commands(6). Verbal Response: bm8 oriented(5). Total: 15. 08/06 01:42 Eye Response: spontaneous(4). Motor Response: obeys commands(6). Verbal Response: bm8 oriented(5). Total: 15. ED Course: 08/05 21:59 Patient arrived in ED. im 22:09 Raul Clifford MD is Attending Physician. pratibha 22:09 Rk Gonzales, RN is Primary Nurse. bm8 22:16 Triage completed. bm8 22:16 Arm band placed on right wrist. bm8 22:21 Patient has correct armband on for positive identification. Bed in low position. Call bm8 light in reach. Side rails up X 1. Adult w/ patient. Client placed on continuous cardiac and pulse oximetry monitoring. NIBP monitoring applied. Pulse ox on. NIBP on. Door closed. Noise minimized. Warm blanket given. Pillow given. Verbal reassurance given. Head of bed elevated. 22:21 No provider procedures requiring assistance completed. Initial lab(s) drawn, by ED bm8 staff, sent to lab. Inserted saline lock: 20 gauge in right antecubital area, using aseptic technique. Blood collected. Flushed with 10 mL NS. Patient maintains SpO2 saturation greater than 95% on room air. 08/06 00:00 CT Abd/Pelvis - IV Contrast Only In Process Unspecified. EDMS 00:57 Alex Rodrigues MD is Referral Physician. [facility] 00:58 Stephen Torres MD is Hospitalizing Provider. [facility] 01:22 Abdomen Limited In Process Unspecified. EDMS 01:42 Provided Education on: need for admit. bm8 01:42 Patient admitted, IV remains in place. bm8 Administered Medications: 08/05 22:22 Drug: Famotidine IVP 20 mg IVP once; dilute with 10 mL 0.9% NaCl; give over 2 minutes bm8 Route: IVP; Site: right antecubital; 23:20 Follow up: Response: No adverse reaction bm8 22:23 Drug: Ondansetron IVP 4 mg IVP once; over 2 minutes Route: IVP; Site: right antecubital;bm8 23:21 Follow up: Response: No adverse reaction bm8 22:23 Drug: morphine IVP or IV 4 mg IVP once over 4 mins Route: IVP; Infused Over: 4 mins; bm8 Site: right antecubital; 23:21 Follow up: Response: No adverse reaction bm8 22:23 Drug: NS 0.9% IV 1000 ml IV at 1 bolus Per protocol; to be given as a bolus over 60 bm8 minutes Route: IV; Rate: 1 bolus; Site: right antecubital; 23:20 Follow up: Response: No adverse reaction; IV Status: Completed infusion; IV Intake: bm8 1000ml 23:47 Drug: levofloxacin IVPB 500 mg 100 ml IVPB once over 60 mins Volume: 100 ml; Route: bm8 IVPB; Infused Over: 60 mins; Site: right antecubital; 08/06 01:37 Follow up: Response: No adverse reaction; IV Status: Completed infusion; IV Intake: bm8 100ml 08/05 23:47 Drug: metoCLOPramide IVP 10 mg IVP once; over 1 to 2 minutes Route: IVP; Site: right bm8 antecubital; 08/06 00:53 Follow up: Response: No adverse reaction bm8 08/05 23:48 Drug: NS 0.9% IV 1000 ml IV at 1 bolus Per protocol; to be given as a bolus over 60 bm8 minutes Route: IV; Rate: 1 bolus; Site: right antecubital; 08/06 01:37 Follow up: Response: No adverse reaction; IV Status: Completed infusion; IV Intake: bm8 1000ml 01:53 Drug: HYDROmorphone IVP 1 mg IVP once Route: IVP; Site: right antecubital; bm8 01:54 Follow up: Response: No adverse reaction bm8 01:53 Drug: Ondansetron IVP 4 mg IVP once; over 2 minutes Route: IVP; Site: right antecubital;bm8 01:53 Follow up: Response: No adverse reaction bm8 Medication: 08/05 22:21 VIS not applicable for this client. bm8 Intake: 23:20 IV: 1000ml; Total: 1000ml. bm8 08/06 01:37 IV: 100ml; Total: 1100ml. bm8 01:37 IV: 1000ml; Total: 2100ml. bm8 Outcome: 00:57 Discharge ordered by . pratibha 00:59 Decision to Hospitalize by Provider. pratibha 01:42 Admitted to Med/surg accompanied by nurse, via wheelchair, room 207, with chart, bm8 01:42 Condition: stable 01:42 Instructed on follow up and referral plans. the need for admit, Demonstrated understanding of instructions, follow-up care, medications, 02:25 Patient left the ED. bm8 Signatures: Dispatcher [employer] Raul Gerard MD MD cha Mendoza, Itzel im McDonald, Brad, RN RN bm8 Corrections: (The following items were deleted from the chart) 01:02 00:58 Reassessment: unable to discharge pt until after completion of prescribed IV bm8 fluids and antibiotics. Also completing EKG that was ordered at time of discharge. bm8
--- NOTE | 2024-08-06 01:31 | P.HP ---
Certification for Inpatient With expected LOS: >2 Midnights Patient will require the following post-hospital care: None Practitioner: I am a practitioner with admitting privileges, knowledge of patient current condition, hospital course, and medical plan of care. Services: Services provided to patient in accordance with Admission requirements found in Title 42 Section 412.3 of the Code of Federal Regulations Patient History Date of Service: 08/06/24 Reason for admission: Abdominal pain History of Present Illness: 44-year-old female with past medical history of Rhikz-Hxgrayrua-Emiqr syndrome status post cardiac ablation, gastroparesis, ADHD on Adderall who presented after developing sudden onset abdominal pain. Pain is located in the epigastric area radiating to the right upper quadrant, pain has been constant since onset about 6 hours prior to presentation. She admitted to nausea but no vomiting. She denies any trauma. She denies any fever. She denies any associated change in her usual bowel movement frequency. She states she takes Linzess for chronic constipation. On arrival in the ED, vital signs were stable, in mild pain distress, laboratory workup shows elevated white cell count of 11.4 thousand with normal differential. BMP was unremarkable. CT of the abdomen and pelvis shows distended gallbladder with edematous gallbladder mural thickening and/or pericholecystic fluid. Mild intra and extrahepatic bile duct dilatation. No calcified cholelithiasis or choledocholithiasis. Correlation with gallbladder sonography suggested. General surgery Dr. Arauz has been discussed with the recommended further admission for further evaluation. Allergies No Known Allergies Allergy (Unverified 12/27/16 09:04) Home Medications: Melatonin 10 mg PO BEDTIME PRN PRN #20 tablet 01/05/21 Dextroamphetamine/Amphetamine [Adderall 20 mg Tablet] 25 mg PO DAILY 08/06/24 Linaclotide [Linzess] 1 tab PO BID 08/06/24 Pantoprazole [Protonix Tab*] 40 mg PO BID 08/06/24 - Past Medical/Surgical History -: Osteopenia -: Tkxth-Mamtqazrv-Kajqn syndrome -: Gastroparesis -: Cardiac ablation -: Appendectomy Psychosocial/ Personal History: Patient lives at home with family - Family History Father -: Heart disease - Social History Smoking Status: Never smoker Alcohol use: No CD- Drugs: No Caffeine use: No Place of Residence: Home Review of Systems Gastrointestinal: Nausea, Abdominal Pain, Distention Physical Examination - Physical Exam General: Alert, In no apparent distress, Oriented x3, Cooperative HEENT: Atraumatic, Normocephalic, PERRLA Neck: Supple, 2+ carotid pulse no bruit, JVD not distended Respiratory: Clear to auscultation bilaterally, Normal air movement Cardiovascular: No edema, Regular rate/rhythm, Normal S1 S2 Gastrointestinal: Normal bowel sounds, No ascites, No guarding, Tenderness (Epigastric area) Musculoskeletal: No clubbing, No swelling Integumentary: No rashes, No breakdown, No significant lesion Neurological: Normal speech, Normal strength at 5/5 x4 extr, Sensation intact, Cranial nerves 3-12 intact External genitalia: No edema, No lesions - Studies Laboratory Data (last 24 hrs) 08/05/24 08/05/24 22:21 22:21 WBC 11.80 H Hgb 12.7 Hct 39.5 Plt Count 320 Sodium 139 Potassium 3.7 BUN 14 Creatinine 0.72 Glucose 98 Total Bilirubin 0.9 AST 57 H ALT 34 Alkaline Phosphatase 74 Lipase 42 Assessment and Plan - Problems (Diagnosis) (1) Cholecystitis, acute Current Visit: Yes Status: Acute (2) Abdominal pain Current Visit: Yes Status: Acute - Plan Impression Presumed cholecystitis Abdominal pain History of Vvvbh-Scqnfewee-Iscmt syndrome Plan Will admit to inpatient Obtain ultrasound of the gallbladder, might need NM gallbladder scan Start empirical antibiotics with cefepime Follow general surgery consult in a.m. Pain control Gentle IV fluid Subcu Lovenox for DVT prophylaxis Full code Keep n.p.o. overnight as per surgery recommendation Total time spent in evaluation greater than 70 minutes Discharge Plan: Home - Advance Directives Does patient have a Living Will: No Does patient have a Durable POA for Healthcare: No Physician Review: Patient Assessed, Agree with Above Assessment and Plan Time Spent Managing Pts Care (In Minutes): 70
[2024-08-06] MEDS ORDERED: HYDRALAZINE HCL 20 MG/ML VIAL IV PRN (01:34)
[2024-08-06] MEDS ORDERED: ONDANSETRON 4 MG/2 ML VIAL ONE ×2 (01:47→11:40)
[2024-08-06] MEDS ORDERED: HYDROMORPHONE HCL 1 MG/ML INJ ONE (01:48)
--- NOTE | 2024-08-06 02:31 | RAD REPORT ---
EXAMINATION: US ABDOMEN LIMITED INDICATION: Female, 44 years old, ABD PAIN COMPARISON(S): Previous day CT abdomen/pelvis TECHNIQUE: Sonographic imaging of the gallbladder. FINDINGS: Biliary system: Multiple stones and layering sludge within the gallbladder lumen. Gallbladder wall th ickness measures 6.4 mm. Common duct diameter measures 9 mm. Flight Operations Inspector reports negative sonographic Levine's sign. Liver: Imaged portions are unremarkable. Other: No visualized ascites. IMPRESSION: Cholelithiasis, gallbladder wall thickening, and dilated common bile duct concerning for both acute c holecystitis and choledocholithiasis. Reportedly negative sonographic Levine sign. Consider MRCP for further assessment/characterization if there is persistent clinical uncertainty. Electronically signed by: Marc Torres MD 08/06/2024 02:13 AM [facility] Due to temporary technical issues with the PACS/[employer] reporting system, reports are being signed by the in-house radiologist without review as a courtesy to ensure prompt reporting the interpreting radiologist is fully responsible for the content of the report. Transcribed Date/Time: 08/06/2024 2:31 AM
[2024-08-06 02:33] VITALS: BMI 26.5
[2024-08-06] MEDS: D5 0.9 NS 1,000 ML IV SCH (02:51)
[2024-08-06] MEDS ORDERED: MELATONIN 5 MG TABLET PO PRN (03:23)
[2024-08-06] MEDS: MORPHINE 2 MG/ML SYR IV PRN (06:21)
[2024-08-06] MEDS: DEXTROAMPHETAMINE PO SCH (09:00)
[2024-08-06] MEDS: AMPHETAMINE PO SCH (09:00)
--- NOTE | 2024-08-06 09:17 | P.PN ---
Date of Service: 08/06/24 Subjective Awake still with RUQ abdominal pain, no nausea Afebrile Excepting surgery today, NPO ROS 10 point ROS as noted above, otherwise negative Physical Exam General: Alert and Oriented x3, Cooperative, NAD HEENT: Atraumatic, Normocephalic, PERRLA Neck: Supple, 2+ carotid pulse no bruit, JVD not distended Respiratory: Clear to auscultation bilaterally, Normal air movement, on RA Cardiovascular: No edema, RRR, Normal S1 S2 Gastrointestinal: Normal bowel sounds, No ascites, No guarding, Tenderness (Epigastric area) Musculoskeletal: No clubbing, No swelling Integumentary: No rashes, No breakdown, No significant lesion Neurological: Normal speech, Normal strength at 5/5 x4 extr, Sensation intact, Cranial nerves 3-12 intact External genitalia: No edema, No lesions Vitals Reviewed Problem list Acute Choledocholithiasis and cholecystitis Gastroparesis Sigmoid diverticulosis Taziy-Bojynqgvw-twlku syndrome s/p cardiac ablation ADHD on Adderall Assessment and Plan Acute Choledocholithiasis and cholecystitis Gastroparesis Sigmoid diverticulosis -CT abd/pelvis reports "Distended gallbladder with edematous gallbladder mural thickening and/or pericholecystic fluid. Mild intra and extrahepatic bile duct dilatation. No calcified cholelithiasis or choledocholithiasis. Sigmoid diverticulosis. No diverticulitis. Fluid and stool within the colon which can be seen with diarrheal illness. -US abdomen reports "Cholelithiasis, gallbladder wall thickening, and dilated common bile duct concerning for both acute cholecystitis and choledocholithiasis. " -NPO -Dr. Arauz consulted -IV antibiotics -antiemetics -Gentle IVF HX Tgcym-Ecluvcoyt-ggjrm syndrome s/p cardiac ablation ADHD on Adderall -Continue home medications after surgery DVT ppx Lovenox Code status LOS 24 hr OBS
[2024-08-06] MEDS: CEFEPIME 1 GM in NA CHLORIDE 0.9% 100 ML IV SCH (09:41)
[2024-08-06] MEDS: FAMOTIDINE 20 MG/2 ML VIAL IV SCH (09:41)
[2024-08-06] MEDS: ENOXAPARIN 40 MG/0.4 ML SQ SCH (09:41)
[2024-08-06] MEDS: PANTOPRAZOLE 40MG TABLET PO SCH (09:41)
[2024-08-06] MEDS: ONDANSETRON 4 MG/2 ML VIAL IV PRN (09:41)
[2024-08-06] MEDS: Ringers Lactate 1,000 ML IV ONE (11:15)
[2024-08-06] MEDS ORDERED: ROCURONIUM 50 MG/5 ML VIAL IV ONE (11:40)
[2024-08-06] MEDS ORDERED: FENTANYL CITR 100 MCG/2 ML ONE ×2 (11:40→13:07)
[2024-08-06] MEDS ORDERED: propofoL 200 MG/20 ML VIAL IV ONE (11:40)
[2024-08-06] MEDS ORDERED: MIDAZOLAM HCL 2 MG/2 ML INJ ONE (11:40)
[2024-08-06] MEDS ORDERED: LIDOCAINE 2% MPF 5 ML VIAL ONE (11:40)
[2024-08-06] MEDS: SUCCINYLCHOLINE 20 MG/ML (10 ML) IV ONE (12:28)
--- NOTE | 2024-08-06 12:51 | P.CNS ---
Date of Consult: 08/06/24 PC: This 44-year-old female presented to the emergency room with severe right upper quadrant abdominal pain for diagnosis and treatment. HPC: This patient, has a history of right upper quadrant abdominal pain. Back in May she was on a cruise, when it was interrupted by right upper quadrant gallbladder attack. She was seen at that time, and transferred to [place] for investigation because of elevation of liver enzymes. She had ultrasound, HIDA scans, with that result she was told her gallbladder was fine. She had a EGD which showed some duodenitis. As well as some recent flux esophagitis. Had a colonoscopy on . Last night her pain came back again, located in the right upper quadrant, radiating straight through to her back. Says it feels like she has got a foot under her rib. PSHx: Scopes as described PMHx: Wounds on weight loss medication recently, lost 26 pounds Social Hx: No known allergies Sys R: No cough, wheeze, shortness of breath. No chest pain or palpitations. Denies any urinary complaints O/E: Awake alert vital signs are stable HEENT: Not jaundiced Chest: Air entry equal bilaterally Abd: Mild right upper quadrant tenderness today [place]: Intact Data: Has distended gallbladder with some pericystic fluid Impression: Acute on chronic cholecystitis Plan: I have discussed with the patient her options at this point. I clinically feel that this patient has acute on chronic cholecystitis and would benefit from laparoscopic cholecystectomy. We would also do a cholangiogram. We discussed the pros and cons of this approach. The risks of the surgery including bleeding infection injury to bile ducts blood vessels and intestines were described. The possible need for further surgeries and procedures was outlined. The fact she may still may have her pain was again discussed. She understands but wants us to proceed.
[2024-08-06] MEDS ORDERED: dexAMETHasone 4 MG/ML VIAL ONE (13:01)
[2024-08-06] MEDS ORDERED: KETOROLAC 30 MG/ML INJ ONE (13:07)
[2024-08-06] MEDS ORDERED: GLYCOPYRROLATE 0.2 MG/ML SYR ONE (13:49)
[2024-08-06] MEDS: HYDROMORPHONE HCL 1 MG/ML INJ ONE ×3 (14:18→14:53)
--- NOTE | 2024-08-06 14:21 | P.OP ---
Preoperative diagnosis: Acute on chronic cholecystitis with cholelithiasis Postoperative diagnosis: The same Primary procedure: Laparoscopic cholecystectomy Secondary procedure: Intraoperative fluoroscopic cholangiogram Anesthesia: General Estimated blood loss: Less than 10 cc Specimen: 1 gallbladder and content Operative Technique: The patient brought the operating room placed supine on the table. After the induction of adequate general endotracheal anesthesia. The abdomen was prepped with a DuraPrep solution, she was draped in usual aseptic manner. Attention was turned towards the umbilicus. It was infiltrated with 0.25% Marcaine. A subumbilical incision was made. This is brought down through the skin and subcutaneous tissue. The Visiport was now used to enter the peritoneal cavity and created pneumoperitoneum to approximately 12 mmHg. The patient was then placed in right reverse Trendelenburg, and airplane to the left. We were able to visualize her right upper quadrant. Another 5 mm trocar was placed in the upper midline, and 2 other fives on the right lateral side of the abdomen. We were were able to place a grasper on the fundus of the gallbladder and elevate it in a upward direction. On exposing the gallbladder it was interesting to note that it was tremendously edematous, with bilious staining throughout. A grasper was placed on the body of the gallbladder itself. Another 1 was now placed down towards Fields's pouch. We were able to dissect out and expose the cystic duct and artery. It was interesting the amount of edematous fluid in this area. We could also see the patient had a dilated extrahepatic biliary tree as well as a dilated gallbladder itself. The cystic duct was now milked up towards the gallbladder. There was now tightly occluded with the [place] retractor. A staple was now placed where we had crushed the tissue at its junction with the cystic duct. An opening was mandated to the cystic duct. Initially we had a hard time passing the catheter due to the amount of valves over the cystic duct. We eventually able to get past them and intraoperative cholangiograms were then obtained. The extra medic biliary tree was somewhat dilated but was of greater concern was that he did not allow flow of contrast into the duodenum, there was some backfilling into the pancreatic duct. The balloon on the cholangiocatheter was now deflated. We evacuated the extrahepatic biliary tree. We did see some small stony fragments in these areas. The cholangiocatheter was now passed down into the extrahepatic biliary tree. We obtained another film. We could see there was a cut off right at the junction of the common bile duct with the duodenum. Deflating our cholangiocatheter we were now able to pass it through into the duodenum. It actually went through with a small pop. The resulting cholangiogram showed flow of contrast now through this area with no evidence of any filling defects. Essentially we had cleared the stone with the cholangiocatheter. We washed out the extrahepatic biliary tree completely with saline, I did a completion film with contrast. Again no filling defects were seen good flow of contrast was seen into the duodenum. The cholangiocatheter was now removed. 2 clips were placed on the distal portion of the cystic duct. The cystic duct was now transected. The cystic artery was dealt with in a similar fashion. The gallbladder was now dissected free from the liver bed, placed into an Endo Catch, and brought out through the umbilical trocar site. It was interesting to note the amount of edema between the gallbladder and the actual liver itself. At this point the abdomen was inspected to ensure adequate hemostasis. Some small bleeders on the liver bed were coagulated using electrocautery. The area was now irrigated a final time and a aspect removed from the peritoneal cavity. The umbilical trocar site was closed with a Endo Close and an absorbable suture. At this point the suture was tied, the pneumoperitoneum collapsed, and the trocars removed. [place] were applied to the skin. At the end of the procedure she was in a stable condition was sent to the [facility]. Needle sponge instrument count were correct. No drains were placed. Complications: None Transferred to: Recovery Room Condition: Good
--- NOTE | 2024-08-06 18:17 | RAD REPORT ---
EXAM: Fluoroscopy use, Cholangiogram Oper-Xray Or HISTORY: [facility] W/ IOC COMPARISON: None FINDINGS: A total of 10 images were sent to PACS, during a fluoroscopically guided intraoperative cho langiography. No radiologist was involved in protocoling or performance of the study, and no radiologist was present for the duration of the procedure. No interpretation of the saved images will be provided. Total fluoroscopy time: 0.8 minutes. IMPRESSION: Documentation of fluoroscopy use as above.
[2024-08-06 21:51] VITALS: O2SAT 99
--- NOTE | 2024-08-07 08:41 | P.DS ---
Admission Date: 08/06/24 Discharge Date: 08/07/24 Disposition: ROUTINE DISCHARGE Discharge Condition: GOOD Reason for Admission: Abdominal pain Brief History of Present Illness: Diagnosis Acute Choledocholithiasis and cholecystitis Gastroparesis Sigmoid diverticulosis Rmfzp-Wzisxegjk-cabwm syndrome s/p cardiac ablation ADHD on Adderall [facility] 08/06/2024 Marcie Shell is a 44-year-old female with past medical history of Eftqy-Rathtjgix-Lloio syndrome status post cardiac ablation, gastroparesis, ADHD on Adderall who presented after developing sudden onset abdominal pain. Pain is located in the epigastric area radiating to the right upper quadrant, pain has been constant since onset about 6 hours prior to presentation. She admitted to nausea but no vomiting. She denies any trauma. She denies any fever. She denies any associated change in her usual bowel movement frequency. She states she takes Linzess for chronic constipation. On arrival in the ED, vital signs were stable, in mild pain distress, laboratory workup shows elevated white cell count of 11.4 thousand with normal differential. BMP was unremarkable. CT of the abdomen and pelvis shows distended gallbladder with edematous gallbladder mural thickening and/or pericholecystic fluid. Mild intra and extrahepatic bile duct dilatation. No calcified cholelithiasis or choledocholithiasis. Correlation with gallbladder sonography suggested. General surgery Dr. Arauz has been discussed with the recommended further admission for further evaluation. Hospital Course: Marcie Shell is a pleasant 44 year old female with a past medical history significant for Cvflw-Ypnviutri-Vlqqz syndrome status post cardiac ablation, gastroparesis, ADHD on Adderall who was admitted to the [facility] on 08/06/2024 for acute cholecystitis. Marcie presented to the ED with sudden onset of abdominal pain to the epigastric area radiating to the right upper quadrant. CT of the abdomen and pelvis shows "distended gallbladder with edematous gallbladder mural thickening and/or pericholecystic fluid. Mild intra and extrahepatic bile duct dilatation. No calcified cholelithiasis or choledocholithiasis." Dr. Arauz was consulted and surgery performed same day (08/07) without complication. No acute events overnight, incision sites CDI, she reports some surgical pain but feeling better overall. She is able to ambulate, reports she does not like the food but can tolerate eating. On 08/07/2024, Marcie was seen on morning rounds and deemed medically stable for discharge. Marcie was discharged with instructions to schedule follow-up appointments with PCP and Dr. Arauz. Marcie was provided prescriptions for Augmentin, Zofran, tramadol. Physical Exam General: Alert and Oriented x3, NAD HEENT: Atraumatic, Normocephalic, PERRLA Neck: Supple, 2+ carotid pulse no bruit, JVD not distended Respiratory: Clear to auscultation bilaterally, Normal air movement, on RA Cardiovascular: No edema, Regular rate and rhythm, Normal S1 S2 Gastrointestinal: Normal bowel sounds, No ascites, No guarding, Tenderness (Epigastric area) Musculoskeletal: No clubbing, No swelling Integumentary: No rashes, No breakdown, abdominal incisions CDI Neurological: Normal speech, Normal strength at 5/5 x4 extr, Sensation intact, Cranial nerves 3-12 intact External genitalia: No edema, No lesions Vital Signs/Physical Exam: Temp Pulse Resp BP Pulse Ox 98.2 F 81 16 108/58 L 96 08/07/24 04:00 08/07/24 04:00 08/07/24 04:00 08/07/24 04:00 08/07/24 04:00 Laboratory Data at Discharge: WBC 11.80 thou/uL (4.3-10.9) H 08/05/24 22:21 Hgb 12.7 g/dL (12.0-15.0) 08/05/24 22:21 Hct 39.5 % (36.0-45.0) 08/05/24 22:21 Plt Count 320 thou/uL (152-406) 08/05/24 22:21 Sodium 139 mEq/L (136-145) 08/05/24 22:21 Potassium 3.7 mEq/L (3.5-5.1) 08/05/24 22:21 BUN 14 mg/dL (7-18) 08/05/24 22:21 Creatinine 0.72 mg/dL (0.55-1.02) 08/05/24 22:21 Glucose 98 mg/dL (74-106) 08/05/24 22:21 Total Bilirubin 0.9 mg/dL (0.2-1.0) 08/05/24 22:21 AST 57 U/L (15-37) H 08/05/24 22:21 ALT 34 U/L (13-56) 08/05/24 22:21 Alkaline Phosphatase 74 U/L (45-117) 08/05/24 22:21 Lipase 42 U/L (13-75) 08/05/24 22:21 Home Medications: Melatonin 10 mg PO BEDTIME PRN PRN #20 tablet 01/05/21 Dextroamphetamine/Amphetamine [Adderall 20 mg Tablet] 25 mg PO DAILY 08/06/24 Linaclotide [Linzess] 1 tab PO BID 08/06/24 Pantoprazole [Protonix Tab*] 40 mg PO BID 08/06/24 Amox/Clavulanate [Augmentin 875-125 Tab] 875 mg PO BID 7 Days #14 tab 08/07/24 Ondansetron [Zofran] 4 mg PO Q8H PRN 5 Days #20 tab 08/07/24 traMADol HCL [Ultram*] 50 mg PO Q6H PRN 5 Days #15 tab 08/07/24 New Medications: Amox/Clavulanate [Augmentin 875-125 Tab] 875 mg PO BID 7 Days #14 tab traMADol HCL [Ultram*] 50 mg PO Q6H PRN 5 Days #15 tab PRN Reason: Pain Ondansetron [Zofran] 4 mg PO Q8H PRN 5 Days #20 tab PRN Reason: Nausea / Vomiting Physician Discharge Instructions: 1. Please call and make a follow-up appointment with your PCP in 3 to 5 days -Home medications will be refilled by your PCP 2. Please call make a follow-up appointment with Dr. Arauz in 1 week for postop management 3. Please continue medications as prescribed outpatient 4. Continue regular diet as tolerated 5. Do not lift greater than 5 pounds for the next 3 days, continue to ambulate around your home 6. Return to the ED if symptoms worsen No medication Augmentin 875 mg twice daily x 7 days Tramadol 50 mg every 6 hours as needed for pain Zofran 4 mg every 8 hours as needed for nausea Diet: Regular Activity: No lifting more than 10 lbs Followup: Bryon Arauz MD [ACTIVE - CAN ADMIT] - 1 Week Zoya Bhagat MD [Primary Care Provider] - 1-2 Weeks
[2024-08-07 09:29] VITALS: BP 114/85; TEMP 98.7
--- NOTE | 2024-08-07 12:02 | EKG ---
Test Date: 2024-08-06 Test Time: 01:05:38 Materials Recycler: GRACE MEASUREMENT RESULTS: Intervals: Rate: 77 HI: 132 QRSD: 86 QT: 400 QTc: 452 [place]: P: 54 HI: 132 QRS: 47 T: 44 INTERPRETIVE STATEMENTS: Normal sinus rhythm Normal ECG Compared to ECG 01/08/2021 13:00:32 Sinus tachycardia no longer present Electronically Signed On 08-07-24 12:00:36 RAISE DRILLER by Tae Elaine
== END 2024-08-07 10:29 | disposition home or self-care (01) | DRG 418 ==
LOC: ER 21:58 → ERHOLD 08-06 01:31 → 2ND 08-06 01:47
PROVIDERS: ADMIT Internal Medicine; ATTEND Internal Medicine
PROC: BF121ZZ Fluoroscopy of Gallbladder using Low Osmolar Contrast (ICD-10-PCS; 2024-08-06)
PROC: 0FT44ZZ Resection of Gallbladder, Percutaneous Endoscopic Approach (ICD-10-PCS; principal; 2024-08-06 12:00)
DX: K80.00 Calculus of gallbladder with acute cholecystitis without obstruction (principal); N39.0 Urinary tract infection, site not specified; K31.84 Gastroparesis; K59.09 Other constipation; K57.30 Diverticulosis of large intestine without perforation or abscess without bleeding; Z90.49 Acquired absence of other specified parts of digestive tract; Z79.899 Other long term (current) drug therapy
CPT/HCPCS: 36415; 74177; 74300; 76705; 80053; 80307; 81001; 81025; 83690; 85025; 87086; 87088; 88304; 93005; 96361; 96365; 96366; 96375; 99285; J0692; J1100; J1171; J1650; J2003; J2250; J2270; J2405; J2704; J2765; J3010; J7030; J7042; J7120; Q9967

== ENCOUNTER 2024-08-10 13:57 | Emergency (ER) | payer BC ==
[2024-08-10] MEDS ORDERED: NA CHLORIDE 0.9% 1,000 ML ONE ×2 (14:32→16:24)
[2024-08-10] MEDS ORDERED: KETOROLAC 30 MG/ML INJ ONE (14:32)
[2024-08-10] MEDS ORDERED: ONDANSETRON 4 MG/2 ML VIAL ONE (14:32)
[2024-08-10 14:51] LABS: Absolute Lymphocytes (CBC) 1.6 K/uL (0.7-4.9); Absolute Monocytes 0.5 K/uL (0.1-1.3); Absolute Neutrophil 7.2 K/uL (1.8-8.0); Basophils % 0.4 % (0-1.3); Eosinophils % 0.2 % (0-4.4); Hematocrit 39.9 % (36.0-45.0); Hemoglobin 13.2 g/dL (12.0-15.0); Lymphocytes % 16.9 % (15.3-44.8); MCH 30.2 pg (27.0-35.0); MCHC 33.1 g/dL (32.0-36.0); MCV 91.5 fL (80-100); MPV 8.3 fL (7.6-11.3); Monocytes % 5.4 % (3.3-12.3); Neutrophils % 77.1 % (41.7-73.7); Platelets 290 thou/uL (152-406); RBC Red Blood Cell Count 4.36 M/uL (3.86-4.86); Red Cell Distribution Width 13.6 % (12.1-15.2)
[2024-08-10] MEDS ORDERED: MORPHINE 4 MG/ML SYR ONE (15:05)
[2024-08-10 15:15] LABS: Albumin 3.4 g/dL (3.4-5.0); Anion Gap 10.3 mEq/L (5.0-15.0); Bilirubin Total 4.8 mg/dL (0.2-1.0); Globulin 3.5 g/dL (2.3-3.5); Potassium 3.3 mEq/L (3.5-5.1); Protein, Total 6.9 g/dL (6.4-8.2)
[2024-08-10 15:39] LABS: Specific Gravity 1.018 (1.005-1.030); Sqamous Epithelial <5 /HPF (None Seen); Urine Bacteria <20 /HPF (<20); Urine Bilirubin 2+ (Negative); Urine Blood Negative (Negative); Urine Clarity Turbid (Clear); Urine Color Dark-Yellow (Yellow); Urine Crystals Unidentified Few /HPF (None Seen); Urine Culture Reflex Order NOT NEEDED; Urine Glucose NEGATIVE (Negative); Urine Ketones 4+ (Over) (Negative); Urine Microscopic Reflex YN ORDER UMIC; Urine Mucus 2+ /HPF (None Seen); Urine Nitrite NEGATIVE (Negative); Urine Protein TRACE (Negative); Urine RBC <5 /HPF (None Seen); Urine Urobilinogen 1+ (Normal); Urine WBC <5 /HPF (<5); Urine pH 6.5 (5.0-7.0)
[2024-08-10 15:40] LABS: Specific Gravity 1.018 (1.005-1.030)
--- NOTE | 2024-08-10 16:07 | RAD REPORT ---
EXAMINATION: ONE VIEW CHEST XR CLINICAL INDICATION: Female, 44 years old.,upper abdomen pain TECHNIQUE: Frontal chest projection is submitted. Examination is limited by patient positioning and t echnique. COMPARISON: 01/08/2021 FINDINGS: The lungs are well inflated and clear. No pneumothorax or sizable effusion. The heart is normal in s ize. Mediastinal contours are unremarkable. IMPRESSION: No acute intrathoracic abnormalities.
[2024-08-10] MEDS ORDERED: METOCLOPRAMIDE 10 MG/2mL INJ ONE (16:25)
--- NOTE | 2024-08-10 16:34 | RAD REPORT ---
EXAMINATION: CT Abdomen Pelvis W Contrast CLINICAL INDICATION: Female, 44 years old. right upper abdomen pain TECHNIQUE: CT abdomen and pelvis was performed, after the administration of IV contrast, as per depar tment protocol. Axial, sagittal and coronal reconstructions were obtained. One or more of the following dose reduction techniques were used: Automated exposure control, adjustment of the mA and k V according to patient size, and iterative reconstruction. Unless otherwise specified, incidental findings do not require dedicated imaging follow-up. COMPARISON: 08/05/2024 FINDINGS: LOWER CHEST: The visualized lung bases are clear. LIVER: Normal in size and contour. Stable hypoattenuating 8 mm lobe lesion, difficult to characterize but suggestive of a small cyst. No suspicious focal lesion. BILIARY SYSTEM: Status post cholecystectomy. No abnormal collections in the cholecystectomy bed. Mild extrahepatic and intrahepatic biliary ductal prominence again seen, grossly stable. SPLEEN: Normal size. No focal lesion. PANCREAS: No mass, ductal dilation, or keya-pancreatic fluid. ADRENALS: Normal; no mass. KIDNEYS: Normal size and contour. No hydronephrosis. URINARY BLADDER: Unremarkable. GASTROINTESTINAL TRACT: No evidence of free air, significant intra-abdominal free fluid, bowel obstru ction or abscess. APPENDIX: Appendix surgically absent. LYMPH NODES: No lymphadenopathy. MUSCULOSKELETAL: No acute or suspicious osseous abnormality. ADDITIONAL FINDINGS: IUD in place. Laparoscopy port site changes at the umbilicus and the right flank . IMPRESSION: No acute or concerning abnormalities seen in the abdomen or pelvis. Expected postoperative changes as above.
--- NOTE | 2024-08-10 16:55 | ER ---
Nurse's Notes [facility] Name: Marcie Shell Age: 44 yrs Sex: Female : 1980 Arrival Date: 08/10/2024 Time: 13:57 Bed 14 Private MD: Diagnosis: Upper abdominal pain, unspecified;Abnormal results of liver function studies;Nausea with vomiting, unspecified Presentation: 08/10 14:08 Chief complaint: Patient states: had gallbladder removed on Tuesday and continues to cm10 have abdominal pain, nausea and vomiting. pt states that she was told to come to the ER by doctor. Coronavirus screen: Client denies travel out of the [place] in the last 14 days. Ebola Screen: Patient denies travel to an Ebola-affected area in the 21 days before illness onset. No symptoms or risks identified at this time. Initial Sepsis Screen: Does the patient meet any 2 criteria? No. Patient's initial sepsis screen is negative. Does the patient have a suspected source of infection? No. Patient's initial sepsis screen is negative. Risk Assessment: Do you want to hurt yourself or someone else? Patient reports no desire to harm self or others. Onset of symptoms was August 10, 2024. 14:08 Method Of Arrival: Wheelchair cm10 14:08 Acuity: CELY 3 cm10 Triage Assessment: 14:09 General: Appears in no apparent distress. uncomfortable, Behavior is calm, cooperative. cm10 Neuro: No deficits noted. Level of Consciousness is awake, alert, obeys commands, Oriented to person, place, time, situation, Appropriate for age. Respiratory: No deficits noted. Airway is patent Respiratory effort is even, unlabored, Respiratory pattern is regular, symmetrical. 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 - Infectious Disease History:: Denies. - Social history:: Smoking status: Patient denies any tobacco usage or history of. Screenin:10 [facility] ED Fall Risk Assessment (Adult) History of falling in the last 3 months, rs5 including since admission No falls in past 3 months (0 pts) Confusion or Disorientation No (0 pts) Intoxicated or Sedated No (0 pts) Impaired Gait No (0 pts) Mobility Assist Device Used No (0 pt) Altered Elimination No (0 pt) Score/Fall Risk Level 0 - 2 = Low Risk Oriented to surroundings, Maintained a safe environment. Abuse screen: Denies threats or abuse. Nutritional screening: No deficits noted. Tuberculosis screening: No symptoms or risk factors identified. Assessment: 14:12 General: Appears in no apparent distress. uncomfortable, Behavior is calm, cooperative. rs5 Pain: Complains of pain in abdomen Pain currently is 8 out of 10 on a pain scale. Quality of pain is described as aching, Is continuous. Neuro: Level of Consciousness is awake, alert, obeys commands, Oriented to person, place, time, situation. Cardiovascular: Patient's skin is warm and dry. Respiratory: Airway is patent Respiratory effort is even, unlabored, Respiratory pattern is regular, symmetrical. GI: Abdomen is round non-distended, Abd is soft and non tender X 4 quads. : No signs and/or symptoms were reported regarding the genitourinary system. EENT: No signs and/or symptoms were reported regarding the EENT system. Derm: Skin is intact, Skin is pink, warm \T\ dry. Musculoskeletal: Range of motion: intact in all extremities. 15:22 Reassessment: Patient and/or family updated on plan of care and expected duration. Pain rs5 level reassessed. Patient is alert, oriented x 3, equal unlabored respirations, skin warm/dry/pink. 16:33 Reassessment: Patient and/or family updated on plan of care and expected duration. Pain rs5 level reassessed. Patient is alert, oriented x 3, equal unlabored respirations, skin warm/dry/pink. 17:37 Reassessment: Patient and/or family updated on plan of care and expected duration. Pain rs5 level reassessed. Patient is alert, oriented x 3, equal unlabored respirations, skin warm/dry/pink. 19:34 Reassessment: received report, EMS arrived to bead picker patient at the same time, this mt4 nurse was able to collect blood cutlures and give antibiotic as prescribed, and patient was transported out by EMS, patient alert and orientated, no signs of distress observed, education provided to patient. Vital Signs: 14:08 BP 139 / 84; Pulse 78; Resp 18; Temp 97.9(O); Pulse Ox 100% on R/A; Weight 68.04 kg; cm10 Height 5 ft. 3 in. ; Pain 8/10; 16:33 BP 125 / 71; Pulse 71; Resp 17; Pulse Ox 99% on R/A; rs5 18:57 BP 127 / 75; Pulse 78; Resp 17; Pulse Ox 98% on R/A; rs5 14:08 Body Mass Index 26.57 (68.04 kg, 160.02 cm) cm10 14:08 Pain Scale: Adult cm10 ED Course: 14:01 Patient arrived in ED. sj2 14:03 Raul Dunlap PA is PHCP. cp 14:03 Scottie Johnson MD is Attending Physician. cp 14:09 Triage completed. cm10 14:09 Arm band placed on right wrist. Patient placed in an exam room, on a stretcher. cm10 14:10 Patient has correct armband on for positive identification. Placed in gown. Bed in low rs5 position. Call light in reach. Side rails up X2. 14:10 No provider procedures requiring assistance completed. rs5 14:15 Cory Benitez, RN is Primary Nurse. rs5 14:15 Inserted saline lock: 20 gauge in right antecubital area, using aseptic technique. rs5 Blood collected. Flushed with 10 mL NS. 14:41 XRAY Chest (1 view) In Process Unspecified. EDMS 16:01 CT Abd/Pelvis - IV Contrast Only In Process Unspecified. EDMS 17:36 initiated a transfer with Angelique from the [facility]. eb 18:06 connected the doctor glue maker bone for [facility] with Raul MCRAE for patient transfer eb consultation. 19:34 Provided Education on: blood cultures and abx . mt4 19:34 Patient transferred, IV remains in place. Patient maintains SpO2 saturation greater mt4 than 95% on room air. Administered Medications: 14:30 Drug: TORadol - Ketorolac IVP 15 mg IVP once Route: IVP; Site: right antecubital; rs5 14:30 Drug: Ondansetron IVP 4 mg IVP once; over 2 minutes Route: IVP; Site: right antecubital;rs5 14:30 Drug: NS 0.9% IV 1000 ml IV at 1 bolus Per protocol; to be given as a bolus over 60 rs5 minutes Route: IV; Rate: 1 bolus; Site: right antecubital; 15:15 Drug: morphine IVP or IV 4 mg IVP once over 4 mins Route: IVP; Infused Over: 4 mins; rs5 Site: right antecubital; 19:33 Follow up: Response: No adverse reaction mt4 16:01 Drug: NS 0.9% IV 1000 ml IV at 1000 ml once; to be given as a bolus over 60 minutes rs5 Route: IV; Rate: 1000 ml; Site: right antecubital; 19:32 Follow up: IV Status: Completed infusion; IV Intake: 1000ml mt4 19:33 Follow up: Response: No adverse reaction mt4 16:34 Drug: metoCLOPramide IVP 10 mg IVP once; over 1 to 2 minutes Route: IVP; Site: right rs5 antecubital; 19:32 Follow up: Response: No adverse reaction mt4 18:57 Drug: HYDROmorphone IVP 1 mg IVP once Route: IVP; Site: right antecubital; rs5 19:31 Follow up: Response: No adverse reaction mt4 19:25 Drug: Rocephin IV 1 grams IV at calculated rate once; Given slow IV push per pharmacy mt4 instructions Route: IV; Rate: calculated rate; Site: right antecubital; 19:32 Follow up: IV Status: Completed infusion mt4 Medication: 14:53 VIS not applicable for this client. rs5 Intake: 19:32 IV: 1000ml; Total: 1000ml. mt4 Outcome: 16:54 ER care complete, transfer ordered by cp 19:34 Transferred by ground EMS to [facility], [facility], [place] 19:34 Condition: stable 19:34 Instructed on the need for transfer, 19:37 Patient left the ED. mt4 Signatures: Dispatcher [employer] EDMS Raul Dunlap PA PA cp Botello, Elizabeth eb Sotelo, Ricky, RN RN rs5 Gaby Silva RN RN cm10 Kimberli Alcaraz RN RN mt4 José Miguel Zepeda Corrections: (The following items were deleted from the chart) 18:04 17:36 initiated a transfer with Nola from the [facility]. eb eb
--- NOTE | 2024-08-10 16:55 | EDPHYS ---
Physician Documentation [facility] Name: Marcie Shell Age: 44 yrs Sex: Female : 1980 Arrival Date: 08/10/2024 Time: 13:57 Bed 14 Private MD: ED Physician Scottie Johnson HPI: 08/10 14:20 This 44 yrs old Female presents to ER via Wheelchair with complaints of Post Surgical cp Pain. 14:20 The patient presents with abdominal pain in the right upper quadrant. cp 14:20 Onset: The symptoms/episode began/occurred gradually, and became worse today. The cp symptoms radiate to right back. Associated signs and symptoms: Pertinent positives: nausea and vomiting. The symptoms are described as constant. Patient reports having cholecystectomy by DR Arauz performed this past Tuesday. Patient complains of increasing right upper abdomen pain. Denies fever, denies shortness of breath, denies cough, denies urinary symptoms. 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 - Infectious Disease History:: Denies. - Social history:: Smoking status: Patient denies any tobacco usage or history of. ROS: 14:25 Eyes: Negative for injury, pain, redness, and discharge, cp 14:25 Constitutional: Positive for poor PO intake, Negative for fever, 14:25 ENT: Negative for drainage from ear(s), ear pain, sore throat, difficulty swallowing, difficulty handling secretions, 14:25 Cardiovascular: Negative for chest pain, edema, palpitations, 14:25 Respiratory: Negative for cough, shortness of breath, wheezing, 14:25 Abdomen/GI: Positive for abdominal pain, nausea and vomiting, of the right upper quadrant, Negative for diarrhea, constipation, 14:25 : Negative for urinary symptoms, 14:25 Neuro: Negative for altered mental status, dizziness, headache, weakness, 14:25 All other systems are negative, Exam: 14:30 Constitutional: The patient appears in no acute distress, alert, awake, cp non-diaphoretic, non-toxic, well developed, well nourished, in obvious pain, uncomfortable, 14:30 Head/Face: Normocephalic, atraumatic. cp 14:30 Eyes: Periorbital structures: appear normal, Conjunctiva: normal, no exudate, no injection, Sclera: no appreciated abnormality, Lids and lashes: appear normal, bilaterally, 14:30 ENT: External ear(s): are unremarkable, Nose: is normal, Mouth: Lips: moist, Oral mucosa: moist, Posterior pharynx: Airway: no evidence of obstruction, patent, 14:30 Chest/axilla: Inspection: normal, 14:30 Cardiovascular: Rate: normal, Rhythm: regular, 14:30 Respiratory: the patient does not display signs of respiratory distress, Respirations: normal, no use of accessory muscles, no retractions, labored breathing, is not present, Breath sounds: are clear throughout, no decreased breath sounds, no stridor, no wheezing, 14:30 Abdomen/GI: Inspection: abdomen appears normal, Bowel sounds: active, all quadrants, Palpation: soft, in all quadrants, severe abdominal tenderness, in the right upper quadrant, rebound tenderness, is not appreciated, voluntary guarding, is elicited in the right upper quadrant, 14:30 Back: pain, that is moderate, of the mid back area, 14:30 Neuro: Orientation: to person, place \T\ time. Mentation: is normal, Motor: moves all fours, strength is normal, Vital Signs: 14:08 BP 139 / 84; Pulse 78; Resp 18; Temp 97.9(O); Pulse Ox 100% on R/A; Weight 68.04 kg; cm10 Height 5 ft. 3 in. ; Pain 8/10; 16:33 BP 125 / 71; Pulse 71; Resp 17; Pulse Ox 99% on R/A; rs5 18:57 BP 127 / 75; Pulse 78; Resp 17; Pulse Ox 98% on R/A; rs5 14:08 Body Mass Index 26.57 (68.04 kg, 160.02 cm) cm10 14:08 Pain Scale: Adult cm10 MDM: 15:00 Differential diagnosis: gastritis, non-specific abd pain, pancreatitis, Peptic Ulcer cp Disease, Perf. Duodenal Ulcer, Perf. Gastric Ulcer, Pyelonephritis, Ureterolithiasis, urinary tract infection, choledocholithiasis. 16:49 Data reviewed: vital signs, nurses notes, lab test result(s), radiologic studies, CT cp scan, plain films. Management of patient was discussed with the following: Stacking Machine Operator: DR Arauz who recommends transfer for GI consult due to concern for possible choledocholithiasis and/or bile leak. 16:54 Medical Screening Exam initiated 08/10 14:18 Order name: CBC with Diff; Complete Time: 14:59 08/10 14:59 Interpretation: Normal except: NADIYA% 77.1. 08/10 14:18 Order name: CMP; Complete Time: 15:22 08/10 15:22 Interpretation: Normal except: NA 135; K 3.3; BUN 5; CRE 0.51; AST 326; ALT 640; ALK cp 285; BILIT 4.8; A/G 1.0. 08/10 14:18 Order name: Lipase; Complete Time: 15:22 08/10 14:18 Order name: Test, Urine; Complete Time: 15:54 08/10 14:18 Order name: Urinalysis w/ reflexes; Complete Time: 15:54 08/10 15:54 Interpretation: Normal except: UCLA Turbid; UBILI 2+; UKET 4+ (Over); UPROT TRACE; cp UUROB 1+. 08/10 14:18 Order name: Lactate w/ 2H reflex if indic.; Complete Time: 15:22 08/10 18:29 Order name: Blood Culture Adult (2) 08/10 14:18 Order name: XRAY Chest (1 view); Complete Time: 16:14 08/10 16:15 Interpretation: Report review. 08/10 14:50 Order name: CT Abd/Pelvis - IV Contrast Only; Complete Time: 16:43 08/10 14:18 Order name: IV Saline Lock; Complete Time: 14:51 08/10 14:18 Order name: Labs collected and sent; Complete Time: 14:51 cp Administered Medications: 14:30 Drug: TORadol - Ketorolac IVP 15 mg IVP once Route: IVP; Site: right antecubital; rs5 14:30 Drug: Ondansetron IVP 4 mg IVP once; over 2 minutes Route: IVP; Site: right antecubital;rs5 14:30 Drug: NS 0.9% IV 1000 ml IV at 1 bolus Per protocol; to be given as a bolus over 60 rs5 minutes Route: IV; Rate: 1 bolus; Site: right antecubital; 15:15 Drug: morphine IVP or IV 4 mg IVP once over 4 mins Route: IVP; Infused Over: 4 mins; rs5 Site: right antecubital; 19:33 Follow up: Response: No adverse reaction mt4 16:01 Drug: NS 0.9% IV 1000 ml IV at 1000 ml once; to be given as a bolus over 60 minutes rs5 Route: IV; Rate: 1000 ml; Site: right antecubital; 19:32 Follow up: IV Status: Completed infusion; IV Intake: 1000ml mt4 19:33 Follow up: Response: No adverse reaction mt4 16:34 Drug: metoCLOPramide IVP 10 mg IVP once; over 1 to 2 minutes Route: IVP; Site: right rs5 antecubital; 19:32 Follow up: Response: No adverse reaction mt4 18:57 Drug: HYDROmorphone IVP 1 mg IVP once Route: IVP; Site: right antecubital; rs5 19:31 Follow up: Response: No adverse reaction mt4 19:25 Drug: Rocephin IV 1 grams IV at calculated rate once; Given slow IV push per pharmacy mt4 instructions Route: IV; Rate: calculated rate; Site: right antecubital; 19:32 Follow up: IV Status: Completed infusion mt4 Disposition Summary: 08/10/24 16:54 Transfer Ordered Notes: Transfer Location: [facility] cp Reason: Higher level of care cp Condition: Stable cp Problem: new cp Symptoms: have improved cp Accepting Physician: DR Caruso(08/10/24 19:37) mt4 Diagnosis - Upper abdominal pain, unspecified cp - Abnormal results of liver function studies cp - Nausea with vomiting, unspecified cp Forms: - Medication Reconciliation Form cp - SBAR form cp Signatures: Dispatcher [employer] EDMS Raul Dunlap PA PA cp Cory Benitez, RN RN rs5 Gaby Silva RN RN cm10 Kimberli Alcaraz RN RN mt4 Corrections: (The following items were deleted from the chart) 14:18 14:18 Chest Single View+[email or web address].[email or web address] ordered. EDDC EDMS :08/09 14:25 Constitutional: Positive for poor PO intake, Negative for fever, cp cp 08/10 17: 12 14:25 Abdomen/GI: Positive for abdominal pain, nausea and vomiting, of the right cp upper quadrant, Negative for diarrhea, constipation, cp 08/10 17:08/09 14:25 Cardiovascular: Negative for chest pain, edema, palpitations, cp cp 08/10 17: 12 14:25 Respiratory: Negative for cough, shortness of breath, wheezing, cp cp 08/10 17: 12 14:25 Eyes: Negative for injury, pain, redness, and discharge, cp cp 08/10 17: 12 14:25 ENT: Negative for drainage from ear(s), ear pain, sore throat, difficulty cp swallowing, difficulty handling secretions, cp 08/10 17: 12 14:25 Neuro: Negative for altered mental status, dizziness, headache, weakness, cpcp 08/10 17: 12 14:25 : Negative for urinary symptoms, cp cp 08/10 17: 12 14:25 All other systems are negative, cp cp 08/10 18:30 16:54 doctor cp cp 19:37 18:30 DR Caruso cp mt4
[2024-08-10] MEDS ORDERED: LIDOCAINE 1% MPF 5 ML VIAL ONE (17:36)
[2024-08-10] MEDS ORDERED: HYDROMORPHONE HCL 1 MG/ML INJ ONE (18:52)
[2024-08-10] MEDS ORDERED: CEFTRIAXONE 1000 MG/VIAL ONE (18:52)
[2024-08-10 20:05] VITALS: TEMP 97.9
[2024-08-10 20:07] VITALS: BP 127/75; O2SAT 98
== END 2024-08-10 19:37 | disposition short-term general hospital (02) ==
LOC: ER 13:57
DX: G89.18 Other acute postprocedural pain (principal); R10.10 Upper abdominal pain, unspecified; R11.2 Nausea with vomiting, unspecified; R94.5 Abnormal results of liver function studies
CPT/HCPCS: 96361; 87040 ×2; 85025; 81001; 36415; 81025; 83605; 83690; 80053; 74177; 71045; 96375; 96374; 99285; Q9967; J2765; J2003; J1171; J2405; J7030 ×2; J0696